=== PATIENT | female | born 1965 | race Caucasian/White ===

== ENCOUNTER 2017-11-26 14:03 | Emergency (ER) | payer OTHER ==
[2017-11-26 14:14] VITALS: BMI 29.8
[2017-11-26] MEDS ORDERED: THIAMINE HCL 200 MG/2 ML VIAL ONE (14:24)
[2017-11-26] MEDS ORDERED: MAGNESIUM 1GM/D5W - 1 GM/100 ML IVPB IVPB ONE ×2 (14:24→14:55)
[2017-11-26] MEDS ORDERED: MULTIVIT INJ. ADULT COMBO WITH VIT K 1 COMBO 10 ML VIAL IV ONE (14:25)
[2017-11-26] MEDS ORDERED: FOLIC ACID 5 MG/1 ML ONE (14:26)
[2017-11-26 14:36] LABS: EOS % 2.1 % (0-4.5); HEMATOCRIT 34.1 % (32.4-45.2); HEMOGLOBIN 11.4 GM/dl (10.7-15.3); LYMPH % 20.8 % (8-40); MCH 35.4 pg (25.7-33.7); MCHC 33.4 g/dl (32.0-36.0); MEAN CELL VOLUME 105.9 fl (80-96); MEAN PLT VOLUME 8.9 fl (7.5-11.1); MONO % 11.6 % (3.8-10.2); NEUT % 64.5 % (42.8-82.8); PLATELET COUNT 89 K/MM3 (134-434); RBC 3.22 M/mm3 (3.60-5.2); WHITE BLOOD COUNT 6.2 K/mm3 (4.0-10.8)
[2017-11-26] MEDS ORDERED: MAGNESIUM SULF 50% (8.12 MEQ/2 ML-1 GM VIAL) IVPB ONE ×3 (14:38→16:45)
--- NOTE | 2017-11-26 14:39 | PDOC ---
History of Present Illness - General History Source: Patient (The patient is a 52 year old female, well known to the emergency department, with a significant past medical history of alcohol abuse, who presents to the ED via EMS, s/p a syncopal episode. The patient reports she was walking to her girlfriends shop when she fainted. She denies dizziness, diaphoresis, chest pain, palpitations or shortness of breath before fainting. The patient reports a bystander called 911 and EMS transported the patient to the ED. EMS reports the patient may have had a seizure per bystander witness. The patient reports her last alcoholic drink was approx. 3 days ago. She denies any recent fever, chills, headache or dizziness. She denies any recent nausea, vomiting, constipation or diarrhea. She denies any recent chest pain or shortness of breath. ), EMS Exam Limitations: No Limitations <Cleveland Weaver - Last Filed: 11/26/17 17:40> <Lakshmi Cuevas - Last Filed: 11/27/17 09:39> - General Chief Complaint: Seizure Stated Complaint: I THINK I HAD A SEIZURE Time Seen by Provider: 11/26/17 14:16 Past History <Cleveland Weaver - Last Filed: 11/26/17 17:40> - Past Medical History Anemia: Yes Asthma: No Cancer: No Cardiac Disorders: No CVA: No COPD: No CHF: No Dementia: No Diabetes: No GI Disorders: Yes (ABD. PAIN, GERD, pancreatitis;ON PRILOSEC) Disorders: No HTN: Yes (NOT CURRENTLY ON MED) Hypercholesterolemia: Yes (NOT CURRENTLY ON MED--TAKEN OFF) Kidney Stones: No Liver Disease: No Psychiatric Problems: Yes (anxiety/depression) Seizures: No Thyroid Disease: Yes (HYPOTHYROIDISM- ON SYNTHROID 100 MCG) - Surgical History Abdominal Surgery: No Appendectomy: No Cardiac Surgery: No Cholecystectomy: No Lung Surgery: No Neurologic Surgery: No Orthopedic Surgery: No - Reproductive History PID: No - Suicide/Smoking/Psychosocial Hx Smoking Status: No Smoking History: Never smoked Have you smoked in the past 12 months: No Number of Cigarettes Smoked Daily: 0 Hx Alcohol Use: Yes Drug/Substance Use Hx: No Substance Use Type: Alcohol Hx Substance Use Treatment: No <Lakshmi Cuevas - Last Filed: 11/27/17 09:39> - Past Medical History Allergies/Adverse Reactions: Allergies Allergy/AdvReac Type Severity Reaction Status Date / Time No Known Allergies Allergy Verified 06/03/16 17:04 Home Medications: Ambulatory Orders Cyclobenzaprine HCl 5 mg PO DAILY tablet 09/13/15 Cyclobenzaprine HCl [Flexeril -] 10 mg PO TID 06/03/16 Hyoscyamine Sulfate [Oscimin] 0.125 mg PO Q6H 06/03/16 Lactobacillus Acidophilus [Probiotic] 1 each PO TID PRN 07/03/16 Cyanocobalamin [Vitamin B12 -] 100 mcg PO DAILY #30 tablet 09/07/16 Lactulose (Oral Use) [Cephulac -] 20 gm PO BID #10 udc 09/07/16 Magnesium Oxide [Mag-Ox -] 800 mg PO BID #20 tablet 09/07/16 Multivitamins [Multivit ([facility] Formulary)] 1 tab PO DAILY #30 tab 09/07/16 Thiamine HCl [Vitamin B1 -] 100 mg PO DAILY #30 tablet 09/07/16 Fluoxetine HCl 20 mg PO DAILY capsule 04/03/17 Review of Systems - Review of Systems Constitutional: No: Chills, Diaphoresis, Fever, Weakness HEENTM: No: Eye Pain, Blurred Vision, Double Vision, Ear Pain, Difficulty Swallowing Respiratory: No: Cough, Shortness of Breath, Wheezing Cardiac (ROS): Yes: Syncope. No: Chest Pain, Edema, Lightheadedness, Palpitations, Chest Tightness ABD/GI: No: Abdominal Distended, Constipated, Diarrhea, Nausea, Vomiting : No: Burning, Dysuria, Discharge, Frequency, Hematuria Musculoskeletal: No: Back Pain, Joint Pain Integumentary: No: Erythema, Lesions, Rash Neurological: Yes: Tremors. No: Headache, Numbness, Paresthesia Endocrine: No: Intolerance to Cold, Intolerance to Heat, Unexplained Weight Gain , Unexplained Weight Loss Hematologic/Lymphatic: No: Easy Bleeding, Easy Bruising <Cleveland Weaver - Last Filed: 11/26/17 17:40> *Physical Exam - Vital Signs Last Vital Signs Temp Pulse Resp BP Pulse Ox 0/0 11/26/17 14:04 - Physical Exam General Appearance: Yes: Appropriately Dressed, Alcohol on Breath, Other ( Combative ). No: Apparent Distress HEENT: positive: EOMI, VERA, Normal ENT Inspection, Normal Voice, Symmetrical, TMs Normal, Pharynx Normal Neck: positive: Trachea midline, Supple. negative: Tender Respiratory/Chest: positive: Lungs Clear, Normal Breath Sounds. negative: Chest Tender, Respiratory Distress, Accessory Muscle Use Cardiovascular: positive: Regular Rhythm, Regular Rate, S1, S2. negative: Edema , JVD, Murmur Gastrointestinal/Abdominal: positive: Normal Bowel Sounds. negative: Distended , Guarding, Rebound, Tenderness Musculoskeletal: positive: Normal Inspection. negative: CVA Tenderness, Decreased Range of Motion Extremity: positive: Normal Inspection, Normal Range of Motion. 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, Fully Oriented, Alert, Normal Mood/ Affect, Normal Response, Motor Strength 5/5 <Cleveland Weaver - Last Filed: 11/26/17 17:40> - Vital Signs Last Vital Signs Temp Pulse Resp BP Pulse Ox 0/0 11/26/17 14:04 - Physical Exam Neurologic: positive: Fully Oriented (Not fully cooperating for the asssement), Normal Mood/Affect (Episodes of anger and agitation) <Lakshmi Cuevas - Last Filed: 11/27/17 09:39> ED Treatment Course - LABORATORY CBC & Chemistry Diagram: 11/26/17 14:20 11/26/17 14:20 - ADDITIONAL ORDERS Additional order review: Laboratory Results 11/26/17 11/26/17 14:20 14:20 Sodium 131 L Potassium 3.6 Chloride 99 Carbon Dioxide 17 L D Anion Gap 15 BUN 7 D Creatinine < 0.8 D Creat Clearance w eGFR > 60 Random Glucose 85 Calcium 6.6 L* D Magnesium 0.8 L* Total Bilirubin 2.9 H D AST 171 H D ALT 28 Alkaline Phosphatase 126 H D Total Protein 6.7 Albumin 3.3 L Alcohol, Quantitative 344.4 H* 11/26/17 14:20 RBC 3.22 L MCV 105.9 H MCHC 33.4 RDW 15.0 MPV 8.9 Neutrophils % 64.5 Lymphocytes % 20.8 Monocytes % 11.6 H Eosinophils % 2.1 Basophils % 1.0 - RADIOLOGY Radiograph Interpretation: 11/26/17 16:15 EXAM#: TYPE/EXAM: RESULT: [id number] CT/HEAD CT WITHOUT CONTRAST History of seizure CT scan of the brain without intravenous contrast. Compared to prior CT scan of the head dated 09/03/2016 There remains [id number] volume loss and ventricular dilatation. No mass lesion, gross acute infarct or intracranial hemorrhage are identified. There is no shift of the midline structures The calvarium is intact. Visualized paranasal sinuses and mastoid air cells are well aerated. The calvarium is intact IMPRESSION: No significant interval change or acute intracranial pathology is identified Reported By: Pietro Mueller MD - Medications Given in the ED: ED Medications Discontinued Medications Generic Name Dose Route Start Last Admin Trade Name Freq PRN Reason Stop Dose Admin Folic Acid 1 mg 11/26/17 14:52 11/26/17 15:00 Folic Acid Injection - IVPB 11/26/17 14:53 1 mg ONCE ONE Administration Magnesium Sulfate 1 gm 11/26/17 14:38 11/26/17 14:49 Magnesium Sulfate IVPB 11/26/17 14:39 1 gm ONCE ONE Administration Magnesium Sulfate 1 gm 11/26/17 14:58 11/26/17 15:00 Magnesium Sulfate IVPB 11/26/17 14:59 1 gm ONCE ONE Administration Thiamine HCl 200 mg 11/26/17 14:52 11/26/17 15:01 Vitamin B1 Injection - IVPB 11/26/17 14:53 200 mg ONCE ONE Administration <Cleveland Weaver - Last Filed: 11/26/17 17:40> - LABORATORY CBC & Chemistry Diagram: 11/26/17 14:20 11/26/17 14:20 <Lakshmi Cuevas S - Last Filed: 11/27/17 09:39> Medical Decision Making - Medical Decision Making 11/26/17 17:15 Patient observed hour by hour. Patient expressed intent to leave. Patient given Ativan and banana bag via IV. <Cleveland Weaver - Last Filed: 11/26/17 17:40> - Medical Decision Making 11/26/17 19:03 Patient stable , iv fluids running endorsed to Dr Lacy at shift change <Lakshmi Cuevas S - Last Filed: 11/27/17 09:39> *DC/Admit/Observation/Transfer - Attestations Scribe Attestion: 11/26/17 15:22 Documentation prepared by Cleveland Weaver, acting as phlebotomist medical lab assistant for Lakshmi Cuevas MD. <Cleveland Weaver - Last Filed: 11/26/17 17:40> - Discharge Dispostion Admit: No <Lakshmi Cuevas - Last Filed: 11/27/17 09:39> Diagnosis at time of Disposition: AMA - Signed out against medical advice, Hypomagnesemia, Alcohol dependence with uncomplicated withdrawal
[2017-11-26 14:51] LABS: ALBUMIN 3.3 g/dl (3.5-5.0); ALK PHOS 126 U/L (32-92); ANION GAP 15 (8-16); BILIRUBIN,TOTAL 2.9 mg/dl (0.2-1.0); BLOOD UREA NITROGEN 7 mg/dl (7-18); CHLORIDE 99 mmol/L (98-107); CO2 17 mmol/L (22-28); GLUCOSE,RANDOM 85 mg/dl (74-106); POTASSIUM 3.6 mmol/L (3.5-5.1); SGOT/AST 171 U/L (10-42); SGPT/ALT 28 U/L (10-40); SODIUM 131 mmol/L (136-145); TOT PROT 6.7 g/dl (6.4-8.3)
[2017-11-26] MEDS ORDERED: THIAMINE HCL 200 MG/2 ML VIAL IVPB ONE (14:52)
[2017-11-26] MEDS ORDERED: FOLIC ACID 5 MG/1 ML IVPB ONE (14:52)
[2017-11-26] MEDS ORDERED: SODIUM CHLORIDE 1,000 ML IV STA ×2 (14:53→18:55)
[2017-11-26 14:54] LABS: CALCIUM 6.6 mg/dl (8.4-10.2)
[2017-11-26 14:55] LABS: MAGNESIUM 0.8 mg/dL (1.8-2.4)
[2017-11-26 14:59] LABS: CREATININE < 0.8 mg/dl (0.6-1.3)
[2017-11-26] MEDS ORDERED: MULTIVIT INJ. ADULT COMBO WITH VIT K 1 COMBO 10 ML VIAL IV SCH (15:00)
[2017-11-26 15:44] VITALS: TEMP 98.6
[2017-11-26] MEDS ORDERED: LORazepam 2 MG/ML SDV VIAL ONE (15:49)
[2017-11-26 19:31] VITALS: BP 116/71; PULSE 98
--- NOTE | 2017-11-27 06:20 | PDOC ---
*Physical Exam - Vital Signs Last Vital Signs Temp Pulse Resp BP Pulse Ox 98.6 F 98 H 14 116/71 96 11/26/17 14:04 11/26/17 19:29 11/26/17 19:29 11/26/17 19:29 11/26/17 17:25 ED Treatment Course - LABORATORY CBC & Chemistry Diagram: 11/26/17 14:20 11/26/17 14:20 - ADDITIONAL ORDERS Additional order review: 11/26/17 14:20 RBC 3.22 L MCV 105.9 H MCHC 33.4 RDW 15.0 MPV 8.9 Neutrophils % 64.5 Lymphocytes % 20.8 Monocytes % 11.6 H Eosinophils % 2.1 Basophils % 1.0 - Medications Given in the ED: ED Medications Discontinued Medications Generic Name Dose Route Start Last Admin Trade Name Freq PRN Reason Stop Dose Admin Folic Acid 1 mg 11/26/17 14:52 11/26/17 15:00 Folic Acid Injection - IVPB 11/26/17 14:53 1 mg ONCE ONE Administration Sodium Chloride 1,000 mls @ 1,000 mls/hr 11/26/17 14:53 11/26/17 15:00 Normal Saline - IV 11/26/17 15:52 1,000 mls/hr ASDIR STA Administration Sodium Chloride 1,000 mls @ 1,000 mls/hr 11/26/17 18:55 11/26/17 18:15 Normal Saline - IV 11/26/17 19:54 1,000 mls/hr ASDIR STA Administration Lorazepam 2 mg 11/26/17 15:34 11/26/17 15:54 Ativan Injection - IVPUSH 11/26/17 15:35 2 mg ONCE ONE Administration Magnesium Sulfate 1 gm 11/26/17 14:38 11/26/17 14:49 Magnesium Sulfate IVPB 11/26/17 14:39 1 gm ONCE ONE Administration Magnesium Sulfate 1 gm 11/26/17 14:58 11/26/17 15:00 Magnesium Sulfate IVPB 11/26/17 14:59 1 gm ONCE ONE Administration Magnesium Sulfate 2 gm 11/26/17 16:45 11/26/17 16:58 Magnesium Sulfate IVPB 11/26/17 16:46 2 gm ONCE ONE Administration Multivitamins/Minerals 10 ml 11/26/17 15:00 11/26/17 15:01 Infuvite Adult - IV 10 ml DAILY ANDREW Administration Thiamine HCl 200 mg 11/26/17 14:52 11/26/17 15:01 Vitamin B1 Injection - IVPB 11/26/17 14:53 200 mg ONCE ONE Administration Progress Note - Progress Note Progress Note: Care of this patient received from . Patient was brought to the ED via EMS with a syncopal episode/possible seizure. The patient has a long history of alcoholism and stated that her last drink was 2 days prior to presentation[however blood alcohol level is 344 MG/deciliter ]. Workup revealed marked hypomagnesemia and the patient received supplementation of 4 g magnesium sulfate and lorazepam IV for sedation. Patient was observed for more than 7 hours with plan to admit for further evaluation and treatment of possible syncopal episode. Patient was awake, alert and oriented ; she was able to ambulate without significant ataxia. She expressed her desire to leave AGAINST MEDICAL ADVICE. She was strongly advised against this but insisted on signing AMA form. The patient called a friend for transportation home *DC/Admit/Observation/Transfer Diagnosis at time of Disposition: AMA - Signed out against medical advice - Referrals - Patient Instructions - Post Discharge Activity
--- NOTE | 2017-11-27 14:58 | EKG ---
Test Reason : Blood Pressure : / mmHG Vent. Rate : 091 BPM Atrial Rate : 091 BPM P-R Int : 138 ms QRS Dur : 084 ms QT Int : 408 ms P-R-T Axes : 076 029 041 degrees QTc Int : 501 ms NORMAL SINUS RHYTHM POSSIBLE LEFT ATRIAL ENLARGEMENT PROLONGED QT ABNORMAL ECG WHEN COMPARED WITH ECG OF 04-JUN-2016 14:06, NO SIGNIFICANT CHANGE WAS FOUND Confirmed by CHRIS PRETTY MD ([id number]) on 11/27/2017 2:58:26 PM Referred By: ELVIA BRIGGS Confirmed By:CHRIS PRETTY MD
== END 2017-11-26 21:32 | disposition left against medical advice (07) ==
LOC: FER 14:03
PROC: 3E033GC Introduction of Other Therapeutic Substance into Peripheral Vein, Percutaneous Approach (ICD-10-PCS; principal; 2017-11-26)
DX: F10.230 Alcohol dependence with withdrawal, uncomplicated (principal); E83.42 Hypomagnesemia; D64.9 Anemia, unspecified; K21.9 Gastro-esophageal reflux disease without esophagitis; I10 Essential (primary) hypertension; E78.00 Pure hypercholesterolemia, unspecified; E03.9 Hypothyroidism, unspecified; F41.9 Anxiety disorder, unspecified; F32.9 Major depressive disorder, single episode, unspecified
CPT/HCPCS: 36415; 70450-TC; 80053; 80307; 83735; 84484; 85025; 93005; 96361; 96374; 96375; 96376; 99284-25

== ENCOUNTER 2018-01-08 16:20 | Emergency (ER) | payer OTHER ==
[2018-01-08 16:41] VITALS: BP 116/74; PULSE 82; TEMP 98.2; BMI 29.5
[2018-01-08] MEDS ORDERED: DIPHTH,PERTUSS(ACELL),TET 0.5 ML DISP.SYRIN IM ONE (16:56)
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
== END 2018-01-08 18:31 | disposition home or self-care (01) ==
LOC: FER 16:20
PROC: 3E0234Z Introduction of Serum, Toxoid and Vaccine into Muscle, Percutaneous Approach (ICD-10-PCS; principal; 2018-01-08)
DX: S09.90XA Unspecified injury of head, initial encounter (principal); T76.11XA Adult physical abuse, suspected, initial encounter; Y93.89 Activity, other specified; Y92.524 Gas station as the place of occurrence of the external cause; E03.9 Hypothyroidism, unspecified; K21.9 Gastro-esophageal reflux disease without esophagitis; I10 Essential (primary) hypertension; E78.00 Pure hypercholesterolemia, unspecified; F32.9 Major depressive disorder, single episode, unspecified; F10.20 Alcohol dependence, uncomplicated
CPT/HCPCS: 70450-TC; 70486-TC; 71046-TC-FY; 72125-TC; 72170-TC-FY; 73130-TC-RT-FY; 90715; 99284-25

== ENCOUNTER 2018-02-09 18:43 | Emergency (ER) | payer OTHER ==
[2018-02-09 19:11] VITALS: BP 122/61; PULSE 100; TEMP 98.2; BMI 25.7
--- NOTE | 2018-02-09 19:18 | PDOC ---
History of Present Illness - General History Source: Patient Exam Limitations: No Limitations - History of Present Illness Initial Comments: 02/09/18 19:49 The patient is a 52 year old female with a significant past medical history of anemia, abdominal pain, GERD, pancreatitis (on prilosec), HTN, HLD, anxiety, depression, hypothyroidism (synthroid 100 MCG), and chronic alcohol abuse who presents to the emergency department for evaluation of 3 day history of abdominal pain and distension. The patient reports intermittent episodes of diffuse abdominal pain occurring since three days ago. She describes her pain as deep and sharp in nature and states her "belly really hurts". She reports associated symptom of generalized weakness. She reports her stomach has been distended for the last 3 days. She denies taking medication for the symptoms. She reports her last bowel movement was this morning. The patient admits drinking 2 margaritas today. She denies any lack of appetite, and states she is currently hungry. She denies any changes in urination, but notes her urine is darker than normal. She reports she has not been compliant with her protonic medication. The patient denies chest pain, shortness of breath, headache, and dizziness. Denies fevers, chills, nausea, vomiting, diarrhea, and constipation. Allergies: NKA Social history: Social alcohol consumption (on weekends). No reported cigarette or drug use. PCP: Dr. Hutchison <Karolina Barragan - Last Filed: 02/09/18 20:49> <Ana Lacy - Last Filed: 02/10/18 01:21> - General Chief Complaint: Pain Stated Complaint: ABDOMINAL PAIN FEELS BLOATED Time Seen by Provider: 02/09/18 19:17 Past History <Karolina Barragan - Last Filed: 02/09/18 20:49> - Past Medical History Anemia: Yes Asthma: No Cancer: No Cardiac Disorders: No CVA: No COPD: No CHF: No Dementia: No Diabetes: No GI Disorders: Yes (ABD. PAIN, GERD, pancreatitis;ON PRILOSEC) Disorders: No HTN: Yes (NOT CURRENTLY ON MED) Hypercholesterolemia: Yes (NOT CURRENTLY ON MED--TAKEN OFF) Kidney Stones: No Liver Disease: No Psychiatric Problems: Yes (anxiety/depression) Seizures: No Thyroid Disease: Yes (HYPOTHYROIDISM- ON SYNTHROID 100 MCG) - Surgical History Abdominal Surgery: No Appendectomy: No Cardiac Surgery: No Cholecystectomy: No Lung Surgery: No Neurologic Surgery: No Orthopedic Surgery: No - Reproductive History PID: No - Suicide/Smoking/Psychosocial Hx Smoking Status: No Smoking History: Never smoked Have you smoked in the past 12 months: No Number of Cigarettes Smoked Daily: 0 Information on smoking cessation initiated: No Hx Alcohol Use: Yes (STATES SOCIAL) Drug/Substance Use Hx: No Substance Use Type: Alcohol Hx Substance Use Treatment: No <Ana Lacy - Last Filed: 02/10/18 01:21> - Past Medical History Allergies/Adverse Reactions: Allergies Allergy/AdvReac Type Severity Reaction Status Date / Time No Known Allergies Allergy Verified 02/09/18 18:45 Home Medications: Ambulatory Orders Fluoxetine HCl 20 mg PO DAILY capsule 04/03/17 Levothyroxine [Synthroid -] 100 mcg PO DAILY 01/08/18 Pantoprazole Sodium [Protonix] 40 mg PO DAILY 01/08/18 Pantoprazole Sodium [Protonix -] 40 mg PO DAILY #30 tablet.ec 02/09/18 Abd/GI Specific PMHX - Complaint Specific PMHX Hepatitis: No Pancreatitis: No <Ana Lacy - Last Filed: 02/10/18 01:21> Review of Systems - Review of Systems Able to Perform ROS?: Yes Comments:: All systems are reviewed and negative except as noted in the HPI. <Karolina Barragan - Last Filed: 02/09/18 20:49> *Physical Exam - Vital Signs Last Vital Signs Temp Pulse Resp BP Pulse Ox 98.2 F 100 H 18 122/61 96 02/09/18 18:45 02/09/18 18:45 02/09/18 18:45 02/09/18 18:45 02/09/18 18:45 - Physical Exam Comments: GENERAL: The patient is awake, alert, and fully oriented, in no acute distress. HEAD: Normal with no signs of trauma. EYES: Pupils equal, round and reactive to light, extraocular movements intact, sclera anicteric, conjunctiva clear. ENT: (+)Dry mucous membranes. Ears normal, nares patent, oropharynx clear without exudates. NECK: Normal range of motion, supple without lymphadenopathy, JVD, or masses. LUNGS: Breath sounds equal, clear to auscultation bilaterally. No wheezes, and no crackles. HEART: Regular rate and rhythm, normal S1 and S2 without murmur, rub or gallop. ABDOMEN: (+)Moderately distended. Soft, nontender, normoactive bowel sounds. No guarding, no rebound. No masses. EXTREMITIES: Normal range of motion, no edema. No clubbing or cyanosis. No cords , erythema, or tenderness. NEUROLOGICAL: Cranial nerves II through XII grossly intact. Normal speech, normal gait. PSYCH: Normal mood, normal affect. SKIN: Warm, Dry, normal turgor, no rashes or lesions noted. <Karolina Barragan - Last Filed: 02/09/18 20:49> - Vital Signs Last Vital Signs Temp Pulse Resp BP Pulse Ox 98.2 F 100 H 18 122/61 96 02/09/18 18:45 02/09/18 18:45 02/09/18 18:45 02/09/18 18:45 02/09/18 18:45 <Ana Lacy - Last Filed: 02/10/18 01:21> Progress Note - Progress Note Progress Note: Documentation has been prepared under my direction and personally reviewed by me in its entirety. I attest that this documented accurately reflects all work, treatment, procedures and medical decision making performed by me. <Ana Lacy - Last Filed: 02/10/18 01:21> Medical Decision Making - Medical Decision Making As noted above, this 52-year-old woman with a history of GERD/hypothyroidism/ chronic alcohol abuse presents with epigastric to periumbilical pain and abdominal distention. She has had no vomiting/diarrhea/constipation/fever or chills. She has been able to eat today (chicken/broccoli) without nausea or vomiting. She states she is currently hungry. She admits to drinking 2 margaritas today. Although patient initially stated that she was taking her medications as prescribed, later in the interview, patient admitted to having run out of her Protonix. Exam as noted. The patient has absolutely no tenderness to palpation; organomegaly/masses palpable. She does have some soft distention of her abdomen but bowel sounds are normal. Because of patient's benign abdominal exam and lack of vomiting/fever, acute abdominal process very unlikely. Since patient drinks daily and is currently not taking her proton pump inhibitor, she likely has recurrence of gastritis/ GERD. Patient has been given Protonix 40 mg by mouth and new prescription of Protonix sent to her pharmacy. Patient's psychologists is . She should follow up with him within the next few days. If she has worsening of pain or develops vomiting/ fever, she should return to the emergency room <Ana Lacy - Last Filed: 02/10/18 01:21> *DC/Admit/Observation/Transfer - Attestations Scribe Attestion: Documentation prepared by Karolina Barragan, acting as medical collections representative for Ana Lacy MD. <Karolina Barragan - Last Filed: 02/09/18 20:49> <Ana Lacy - Last Filed: 02/10/18 01:21> Diagnosis at time of Disposition: GERD (gastroesophageal reflux disease) Qualifiers: Esophagitis presence: without esophagitis Qualified Code(s): K21.9 - Gastro- esophageal reflux disease without esophagitis - Discharge Dispostion Disposition: HOME Condition at time of disposition: Stable - Prescriptions Prescriptions: Pantoprazole Sodium [Protonix -] 40 mg PO DAILY #30 tablet.ec - Referrals Referrals: Lois Crocker MD [Staff Physician] - Call tomorrow - Patient Instructions Printed Discharge Instructions: DI for Gastroesophageal Reflux Disease (GERD) Additional Instructions: light diet; limit alcohol intake Continue Protonix 40 mg daily Take other medications as previously prescribed Call 's office tomorrow to arrange follow-up within the next 2-3 days Consider probiotic such as"Align" and take as directed Return if symptoms worsen or you have vomiting/fever
[2018-02-09] MEDS ORDERED: FAMOTIDINE 20 MG TABLET PO ONE (19:48)
[2018-02-09] MEDS ORDERED: FAMOTIDINE 20 MG TABLET ONE (20:02)
[2018-02-09 20:07] LABS: URINE APPEARANCE Clear; URINE BILIRUBIN Negative (NEGATIVE); URINE COLOR YELLOW; URINE GLUCOSE (UA) Negative (NEGATIVE); URINE KETONE Negative (NEGATIVE); URINE LEUK ESTERASE Negative (NEGATIVE); URINE NITRITE Negative (NEGATIVE); URINE PROTEIN Negative (NEGATIVE)
[2018-02-09 20:12] LABS: EPI CELLS FEW /HPF; URINE WBC 0-2 (0-5)
[2018-02-09 20:13] LABS: URINE BACTERIA NONE SEEN /hpf (NEGATIVE)
[2018-02-09] MEDS ORDERED: PANTOPRAZOLE 40 MG TABLET (FP) PO ONE (20:31)
[2018-02-09] MEDS ORDERED: PANTOPRAZOLE 40 MG TABLET (FP) ONE (20:33)
== END 2018-02-09 20:51 | disposition home or self-care (01) ==
LOC: FER 18:43
DX: K21.9 Gastro-esophageal reflux disease without esophagitis (principal); I10 Essential (primary) hypertension; E78.5 Hyperlipidemia, unspecified; E03.9 Hypothyroidism, unspecified; F41.9 Anxiety disorder, unspecified; F32.9 Major depressive disorder, single episode, unspecified; D64.9 Anemia, unspecified; K86.1 Other chronic pancreatitis; F10.20 Alcohol dependence, uncomplicated
CPT/HCPCS: 81003; 81015; 99282-25

== ENCOUNTER 2018-02-11 13:38 | Inpatient (IN) | payer OTHER ==
--- NOTE | 2018-02-11 14:06 | PDOC ---
History of Present Illness - General Chief Complaint: Rectal Bleed Stated Complaint: RECTAL/VAGINAL BLEEDING Time Seen by Provider: 02/11/18 14:05 - History of Present Illness Initial Comments: 02/11/18 14:21 Ms. Gonzalez is a 52 yo female w/ pmh of anemia, GERD, pancreatitis, HTN, HLD, anxiety, depresssion, hypothyroidism (on synthroid), chronic alcohol abuse who presents for evaluation of 3 days of abdominal pain and abdominal swelling. She reports she has generalized abdominal pain she rates 10/10. She was evaluated 2 days ago for similar complaint and thought to have GERD exacerbation. She presents today as abdominal pain and girth have increased and she has reportedly had rectal and urinary bleeding. The patient denies chest pain, shortness of breath, headache and dizziness. Denies fever, chills, nausea, vomit, diarrhea and constipation. Denies dysuria, frequency, urgency and hematuria. Allergies: NKDA Past History - Past Medical History Allergies/Adverse Reactions: Allergies Allergy/AdvReac Type Severity Reaction Status Date / Time No Known Allergies Allergy Verified 02/09/18 18:45 Home Medications: Ambulatory Orders Fluoxetine HCl 20 mg PO DAILY capsule 04/03/17 Levothyroxine [Synthroid -] 100 mcg PO DAILY 01/08/18 Pantoprazole Sodium [Protonix -] 40 mg PO DAILY #30 tablet.ec 02/09/18 Anemia: Yes Asthma: No Cancer: No Cardiac Disorders: No CVA: No COPD: No CHF: No Dementia: No Diabetes: No GI Disorders: Yes (ABD. PAIN, GERD, pancreatitis;ON PRILOSEC) Disorders: No HTN: Yes (NOT CURRENTLY ON MED) Hypercholesterolemia: Yes (NOT CURRENTLY ON MED--TAKEN OFF) Kidney Stones: No Liver Disease: No Psychiatric Problems: Yes (anxiety/depression) Seizures: No Thyroid Disease: Yes (HYPOTHYROIDISM- ON SYNTHROID 100 MCG) - Surgical History Abdominal Surgery: No Appendectomy: No Cardiac Surgery: No Cholecystectomy: No Lung Surgery: No Neurologic Surgery: No Orthopedic Surgery: No - Reproductive History PID: No - Suicide/Smoking/Psychosocial Hx Smoking Status: No Smoking History: Never smoked Have you smoked in the past 12 months: No Number of Cigarettes Smoked Daily: 0 Hx Alcohol Use: Yes (STATES SOCIAL) Drug/Substance Use Hx: No Substance Use Type: Alcohol Hx Substance Use Treatment: No Review of Systems - Review of Systems Comments:: 02/11/18 18:57 GENERAL/CONSTITUTIONAL: No fever or chills. No weakness. HEAD, EYES, EARS, NOSE AND THROAT: No change in vision. No ear pain or discharge. No sore throat. CARDIOVASCULAR: No chest pain or shortness of breath RESPIRATORY: No cough, wheezing, or hemoptysis. GASTROINTESTINAL: +Abdominal pain / swelling as described. No nausea, vomiting, diarrhea or constipation. GENITOURINARY: No dysuria, frequency, or change in urination. MUSCULOSKELETAL: No joint or muscle swelling or pain. No neck or back pain. SKIN: No rash NEUROLOGIC: No headache, vertigo, loss of consciousness, or change in strength/ sensation. ENDOCRINE: No increased thirst. No abnormal weight change HEMATOLOGIC/LYMPHATIC: No anemia, easy bleeding, or history of blood clots. ALLERGIC/IMMUNOLOGIC: No hives or skin allergy. *Physical Exam - Vital Signs Last Vital Signs Temp Pulse Resp BP Pulse Ox 114 H 22 130/80 95 02/11/18 13:56 02/11/18 13:56 02/11/18 13:56 02/11/18 13:56 - Physical Exam Comments: 02/11/18 18:57 GENERAL: Awake, alert, and fully oriented, in no acute distress HEAD: No signs of trauma, normocephalic, atraumatic EYES: PERRLA, EOMI, sclera anicteric, conjunctiva clear ENT: Auricles normal inspection, hearing grossly normal, nares patent, oropharynx clear without exudates. Moist mucosa NECK: Normal ROM, supple, no lymphadenopathy, JVD, or masses LUNGS: No distress, speaks full sentences, clear to auscultation bilaterally HEART: Regular rate and rhythm, normal S1 and S2, no murmurs, rubs or gallops, peripheral pulses normal and equal bilaterally. ABDOMEN: +Distended abdomen. Soft, nontender, normoactive bowel sounds. No guarding, no rebound. No masses EXTREMITIES: Normal inspection, Normal range of motion, no edema. No clubbing or cyanosis. NEUROLOGICAL: Cranial nerves II through XII grossly intact. Normal speech, normal gait, no focal sensorimotor deficits SKIN: Warm, Dry, normal turgor, no rashes or lesions noted. ED Treatment Course - LABORATORY CBC & Chemistry Diagram: 02/11/18 14:18 02/11/18 14:18 Medical Decision Making - Medical Decision Making 02/11/18 18:57 Ms. Gonzalez is a 52 yo female w/ pmh as described who presents for evaluation of abdominal pain / distended abdomen concerning for new onset cirrhosis / ascites. Patient noted to have elevated lactate to 5.9. CT concerning for findings suggestive of liver cirrhosis with large amount of free fluid / ascites noted in abdomen. Admitting patient for further evaluation. 02/11/18 19:21 Patient signed out to Dr. Ray for further evaluation. *DC/Admit/Observation/Transfer Diagnosis at time of Disposition: Cirrhosis Qualifiers: Hepatic cirrhosis type: unspecified hepatic cirrhosis Ascites presence: unspecified Qualified Code(s): K74.60 - Unspecified cirrhosis of liver Ascites Qualifiers: Ascites type: due to alcoholic cirrhosis Qualified Code(s): K70.31 - Alcoholic cirrhosis of liver with ascites - Referrals Referrals: Matti Hutchison MD [Primary Care Provider] - - Patient Instructions - Post Discharge Activity
[2018-02-11] MEDS ORDERED: morphine CARPU-JECT 4 MG/1 ML DISP.SYRIN IVPUSH ONE ×2 (14:25→19:44)
[2018-02-11] MEDS ORDERED: morphine SULFATE 4 MG/ML VIAL ONE ×2 (14:28→20:48)
[2018-02-11 14:33] LABS: HEMATOCRIT 29.6 % (32.4-45.2); HEMOGLOBIN 10.3 GM/dL (10.7-15.3); LYMPH % 21.4 % (8-40); MCH 37.6 pg (25.7-33.7); MCHC 34.8 g/dl (32.0-36.0); MEAN PLT VOLUME 9.4 fl (7.5-11.1); MONO % 6.9 % (3.8-10.2); NEUT % 69.7 % (42.8-82.8); PLATELET COUNT 107 K/MM3 (134-434); RBC 2.74 M/mm3 (3.60-5.2); WHITE BLOOD COUNT 4.7 K/mm3 (4.0-10.0)
[2018-02-11] MEDS ORDERED: MORPHINE SULFATE 10 MG/1 ML *VIAL ONE (14:56)
[2018-02-11 14:58] LABS: INR 1.44 (0.82-1.09); PROTHROMBIN TIME (PATIENT) 16.3 SEC (9.7-13.0)
[2018-02-11 15:57] LABS: ANION GAP 15 (8-16); BILIRUBIN,TOTAL 4.1 mg/dL (0.2-1.0); BLOOD UREA NITROGEN 4 mg/dL (7-18); CALCIUM 7.1 mg/dL (8.5-10.1); CHLORIDE 101 mmol/L (98-107); CO2 25 mmol/L (21-32); CREATININE 0.7 mg/dL (0.55-1.02); GLUCOSE,RANDOM 98 mg/dL (74-106); POTASSIUM 3.4 mmol/L (3.5-5.1); SGOT/AST 112 U/L (15-37); SGPT/ALT 19 U/L (12-78); SODIUM 141 mmol/L (136-145)
[2018-02-11 15:59] LABS: ALK PHOS 126 U/L (45-117); TOT PROT 7.1 g/dl (6.4-8.2)
[2018-02-11] MEDS ORDERED: CEFTRIAXONE 1 GM in DEXTROSE 5%-WATER - 100 ML IVPB ONE (16:41)
[2018-02-11] MEDS ORDERED: CEFTRIAXONE 1 GM/50 ML BAG ONE (17:48)
[2018-02-11] MEDS ORDERED: SODIUM CHLORIDE 1,000 ML IV STA (18:34)
--- NOTE | 2018-02-11 18:37 | PDOC ---
Attending Attestation - HPI HPI: 02/11/18 18:38 The patient is a 52 year old male with history of hypertension, hyperlipidemia, GERD, pancreatitis, who returns to the ED complaining of a 5 day history of diffuse progressive abdominal pain and abdominal distention. She was evaluated at [facility] ED and was discharged on Protonix with GI follow up. She returns to the ED for persistence of her symptoms. She now also complains of rectal bleeding and vaginal bleeding. No fever or chills. No nausea, vomiting, or diarrhea. She reports that she drinks 2 drinks every few days. Denies drug use. Denies falls. Per EMS, pt well known to them, appears to be more confused with more distended abdomen. Denies CP/SOB. - Physicial Exam PE: 02/11/18 18:38 GENERAL: Awake, alert, and fully oriented, in no acute distress HEAD: No signs of trauma EYES: PERRLA, EOMI, +scleral icterus, conjunctiva clear ENT: Auricles normal inspection, hearing grossly normal, nares patent, oropharynx clear without exudates. Moist mucosa NECK: Normal ROM, supple, no lymphadenopathy, JVD, or masses LUNGS: Breath sounds equal, clear to auscultation bilaterally. No wheezes, and no crackles HEART: Regular rate and rhythm, normal S1 and S2, no murmurs, rubs or gallops ABDOMEN: Soft, diffuse mild ttp, normoactive bowel sounds. No dullness to percussion. Has ecchymosis to LLQ. EXTREMITIES: Normal range of motion, no edema. No clubbing or cyanosis. No cords, erythema, or tenderness NEUROLOGICAL: Normal speech, cranial nerves intact, negative pronator drift, 5/ 5 strength in all 4 extremities, normal sensation to light touch in all 4 extremities, normal cerebellar exam, normal gait, normal reflexes and tone SKIN: Warm, Dry, normal turgor, no rashes or lesions noted. - Medical Decision Making 02/11/18 18:38 Documentation prepared by Ling Young, acting as medical health researcher for Demetrius Carrillo MD. <Ling Young - Last Filed: 02/11/18 18:38> - Resident Resident Name: Anson Bailey - ED Attending Attestation I have performed the following: I have examined & evaluated the patient, The case was reviewed & discussed with the resident, I agree w/resident's findings & plan, Exceptions are as noted - Critical Care Time Total Critical Care Time: 30 Critical Care Statement: The care of this patient involved high complexity decision making to prevent further life threatening deterioration of the patient 's condition and/or to evaluate & treat vital organ system(s) failure or risk of failure. - Medical Decision Making 02/11/18 18:45 52yo F hx etoh abuse p/w distended abd and diffuse abd ttp. Vitals initially with tachycardia, resolved to HR 80s with 1L NS. Concern for SBP. Lactate 5.9, likely 2/2 inability to clear by liver and possible SBP infection. Less likely sepsis as no SIRS criteria at this time. Pt given ceftriaxone for sbp cvg. Unable to do diag tap 2/2 non functioning ED ultrasound machine. CTAP with large amount ascitis, possible colitis, no other significant findings. Rpt lactate pending. Pt is HDS. Will admit to hospitalist at this time, awaiting call back. 02/11/18 19:[address] Loyd, accepted to med/surg bed. Given elevated lactate, I ordered surgical c/s to Dr. Garcia in case of mesenteric ischemia, although sxs and lactic acidosis much more likely 2/2 sbp and inability to clear lactic due to liver failure. Dr. Loyd will f/u on surgical c/s. Pt is HDS at this time, rpt lactate post 1L IVF pending. Case discussed in detail with admitting physician including history, physical exam and ancillary studies. Admitting physician has assumed care for the patient, will follow all pending diagnostics and will complete the evaluation and treatment. <Demetrius Carrillo - Last Filed: 02/13/18 19:46>
--- NOTE | 2018-02-11 19:46 | PDOC ---
*Physical Exam - Vital Signs Last Vital Signs Temp Pulse Resp BP Pulse Ox 98.3 F 96 H 19 140/89 95 02/11/18 19:25 02/11/18 19:25 02/11/18 19:25 02/11/18 19:25 02/11/18 13:56 ED Treatment Course - LABORATORY CBC & Chemistry Diagram: 02/11/18 14:18 02/11/18 14:18 - ADDITIONAL ORDERS Additional order review: Laboratory Results 02/11/18 02/11/18 02/11/18 16:12 16:03 14:18 PT with INR INR PTT (Actin FS) Sodium Potassium Chloride Carbon Dioxide Anion Gap BUN Creatinine Creat Clearance w eGFR Random Glucose Lactic Acid 5.9 H* Calcium Total Bilirubin AST ALT Alkaline Phosphatase Total Protein Albumin Lipase 222 Stool Occult Blood Negative 02/11/18 02/11/18 14:18 14:18 PT with INR 16.30 H INR 1.44 H D PTT (Actin FS) 32.0 Sodium 141 Potassium 3.4 L Chloride 101 Carbon Dioxide 25 Anion Gap 15 BUN 4 L Creatinine 0.7 Creat Clearance w eGFR > 60 Random Glucose 98 Lactic Acid Calcium 7.1 L Total Bilirubin 4.1 H D AST 112 H ALT 19 Alkaline Phosphatase 126 H Total Protein 7.1 Albumin 3.0 L Lipase Stool Occult Blood 02/11/18 14:18 RBC 2.74 L MCV 108.0 H MCHC 34.8 RDW 19.0 H D MPV 9.4 Neutrophils % 69.7 D Lymphocytes % 21.4 D Monocytes % 6.9 Eosinophils % 1.0 Basophils % 1.0 - Medications Given in the ED: ED Medications Discontinued Medications Generic Name Dose Route Start Last Admin Trade Name Freq PRN Reason Stop Dose Admin Ceftriaxone Sodium 1 gm/ 100 mls @ 200 mls/hr 02/11/18 16:41 02/11/18 17:45 Dextrose IVPB 02/11/18 17:10 200 mls/hr ONCE ONE Administration Protocol Sodium Chloride 1,000 mls @ 1,000 mls/hr 02/11/18 18:34 02/11/18 18:36 Normal Saline - IV 02/11/18 19:33 1,000 mls/hr ASDIR STA Administration Morphine Sulfate 4 mg 02/11/18 14:25 02/11/18 14:31 Morphine Injection - IVPUSH 02/11/18 14:26 4 mg ONCE ONE Administration Medical Decision Making - Medical Decision Making 02/11/18 19:50 Patient is a 52F with history of anemia, GERD, pancreatitis, HTN, HLD, anxiety, depresssion, hypothyroidism (on synthroid), chronic alcohol abuse here today complaining of abdominal pain. Labs reviewed: Laboratory Tests 02/11/18 02/11/18 02/11/18 14:18 14:18 14:18 WBC 4.7 D Hgb 10.3 L D Hct 29.6 L Plt Count 107 L D INR 1.44 H D Lactic Acid Total Bilirubin 4.1 H D AST 112 H ALT 19 Lipase Stool Occult Blood 02/11/18 02/11/18 02/11/18 14:18 16:03 16:12 WBC Hgb Hct Plt Count INR Lactic Acid 5.9 H* Total Bilirubin AST ALT Lipase 222 Stool Occult Blood Negative CB shows anemia, INR elevated, bilirubin elevated, lactic acid elevated, second lactic acid ordered. Patient accepted for admission by Dr Loyd to med/surg. Consult for surgery put in. *DC/Admit/Observation/Transfer Diagnosis at time of Disposition: Cirrhosis Qualifiers: Hepatic cirrhosis type: unspecified hepatic cirrhosis Ascites presence: unspecified Qualified Code(s): K74.60 - Unspecified cirrhosis of liver Ascites Qualifiers: Ascites type: due to alcoholic cirrhosis Qualified Code(s): K70.31 - Alcoholic cirrhosis of liver with ascites - Discharge Dispostion Condition at time of disposition: Stable Decision to Admit order: Yes - Referrals Referrals: Matti Hutchison MD [Primary Care Provider] - - Patient Instructions - Post Discharge Activity
[2018-02-11] MEDS ORDERED: SODIUM CHLORIDE 0.45% 1,000 ML IV SCH (20:15)
[2018-02-11] MEDS ORDERED: morphine SULFATE 4 MG/ML VIAL IVPUSH ONE (20:45)
[2018-02-11] MEDS ORDERED: FUROSEMIDE 40 MG TABLET (FP) PO ONE (22:29)
[2018-02-11] MEDS ORDERED: SODIUM CHLORIDE 1,000 ML IV SCH (22:30)
[2018-02-11] MEDS ORDERED: FOLIC ACID INJECTION - 1 MG, THIAMINE HCL 100 MG, MULTIVIT INJECTION ADULT 10 ML in SOD... IVPB ONE (22:34)
[2018-02-11] MEDS ORDERED: POTASSIUM CHLORIDE TABS 20 MEQ TABLET.ER (FP) PO ONE ×2 (22:45→23:08)
--- NOTE | 2018-02-11 22:47 | HP ---
CHIEF COMPLAINT: abdominal pain GI: Dr. Crcoker HISTORY OF PRESENT ILLNESS: 52 year old female with a hx of HTN, HLD, hypothyroidism, pancreatitis, GERD presents to the hospital with a 3 day hx of diffuse, stabbing 10/10 abdominal pain in her suprapubic region and RUQ/LUQ. She states that she has never had this pain before. The pain does not radiate and is not associated with nausea/ vomiting. The pain is not associated with food. She did mention, however, that she recently vomited non-bloody/non-bilious emesis when brushing her teeth. Patient reports solid stools and had her last bowel movement yesterday. She states that her abdomen feels distended. She also acknowledges that her urine has had a dark red hue. Denies chest pain, SOB, n/v/d, fevers, chills. Patient has been admitted for detox from alcohol multiple times in the past. ER course was notable for: (1) LA 5.9 (2) K 3.4 (3) CT significant for ascites, cirrhosis, thickening of gastric antral wall PAST MEDICAL HISTORY: HTN, HLD, hypothyroidism, pancreatitis, GERD PAST SURGICAL HISTORY: none Social History: Smoking: never Alcohol: 4-5 days a week, claims to drink 1-2 drinks a night Drugs: never Allergies No Known Allergies Allergy (Verified 02/09/18 18:45) HOME MEDICATIONS: Home Medications Medication Instructions Recorded Fluoxetine HCl 20 mg PO DAILY capsule 04/03/17 Levothyroxine [Synthroid -] 100 mcg PO DAILY 01/08/18 Pantoprazole Sodium [Protonix -] 40 mg PO DAILY #30 tablet.ec 02/09/18 REVIEW OF SYSTEMS CONSTITUTIONAL: weight change (GAIN) Absent: fever, chills, diaphoresis, generalized weakness, malaise, loss of appetite, HEENT: Absent: rhinorrhea, nasal congestion, throat pain, throat swelling, difficulty swallowing, mouth swelling, ear pain, eye pain, visual changes CARDIOVASCULAR: peripheral edema Absent: chest pain, syncope, palpitations, irregular heart rate, lightheadedness , RESPIRATORY: Absent: cough, shortness of breath, dyspnea with exertion, orthopnea, wheezing, stridor, hemoptysis GASTROINTESTINAL:abdominal pain, abdominal distension Absent: nausea, vomiting, diarrhea, constipation, melena, hematochezia GENITOURINARY: Absent: dysuria, frequency, urgency, hesitancy, hematuria, flank pain, genital pain MUSCULOSKELETAL: Absent: myalgia, arthralgia, joint swelling, back pain, neck pain SKIN: Absent: rash, itching, pallor HEMATOLOGIC/IMMUNOLOGIC: Absent: easy bleeding, easy bruising, lymphadenopathy, frequent infections ENDOCRINE: Absent: unexplained weight gain, unexplained weight loss, heat intolerance, cold intolerance NEUROLOGIC: Absent: headache, focal weakness or paresthesias, dizziness, unsteady gait, seizure, mental status changes, bladder or bowel incontinence PSYCHIATRIC: Absent: anxiety, depression, suicidal or homicidal ideation, hallucinations. PHYSICAL EXAMINATION Vital Signs - 24 hr 02/11/18 02/11/18 13:56 19:25 Temperature 98.3 F Pulse Rate 114 H Pulse Rate [ 96 H Left Radial] Respiratory 22 19 Rate Blood Pressure 130/80 Blood Pressure 140/89 [Right Arm] O2 Sat by Pulse 95 Oximetry (%) GENERAL: A&Ox3, no acute distress, EYES: PERRLA, horizontal nystagmus noted in both eyes, scleral icterus present ENT: Moist mucus membranes NECK: No JVD LUNGS: CTA, no wheezes HEART: mildly tachycardic, no murmurs ABDOMEN: distended, bowel sounds present, significantly tender to palpation in suprapubic region and LUQ/RUQ, fluid wave present, no hepatosplenomegaly palpated, abdomen dull to percussion MUSCULOSKELETAL: No CVA Tenderness EXTREMITIES: 2+ pulses, 1+ peripheral edema noted NEUROLOGICAL: Cranial nerves II-XII intact. Laboratory Last Values WBC 4.7 K/mm3 (4.0-10.0) D 02/11/18 14:18 RBC 2.74 M/mm3 (3.60-5.2) L 02/11/18 14:18 Hgb 10.3 GM/dL (10.7-15.3) L D 02/11/18 14:18 Hct 29.6 % (32.4-45.2) L 02/11/18 14:18 MCV 108.0 fl (80-96) H 02/11/18 14:18 MCH 37.6 pg (25.7-33.7) H 02/11/18 14:18 MCHC 34.8 g/dl (32.0-36.0) 02/11/18 14:18 RDW 19.0 % (11.6-15.6) H D 02/11/18 14:18 Plt Count 107 K/MM3 (134-434) L D 02/11/18 14:18 MPV 9.4 fl (7.5-11.1) 02/11/18 14:18 Neutrophils % 69.7 % (42.8-82.8) D 02/11/18 14:18 Lymphocytes % 21.4 % (8-40) D 02/11/18 14:18 Monocytes % 6.9 % (3.8-10.2) 02/11/18 14:18 Eosinophils % 1.0 % (0-4.5) 02/11/18 14:18 Basophils % 1.0 % (0-2.0) 02/11/18 14:18 PT with INR 16.30 SEC (9.7-13.0) H 02/11/18 14:18 INR 1.44 (0.82-1.09) H D 02/11/18 14:18 PTT (Actin FS) 32.0 SECONDS (26.9-34.4) 02/11/18 14:18 Sodium 141 mmol/L (136-145) 02/11/18 14:18 Potassium 3.4 mmol/L (3.5-5.1) L 02/11/18 14:18 Chloride 101 mmol/L (98-107) 02/11/18 14:18 Carbon Dioxide 25 mmol/L (21-32) 02/11/18 14:18 Anion Gap 15 (8-16) 02/11/18 14:18 BUN 4 mg/dL (7-18) L 02/11/18 14:18 Creatinine 0.7 mg/dL (0.55-1.02) 02/11/18 14:18 Creat Clearance w eGFR > 60 (>60) 02/11/18 14:18 Random Glucose 98 mg/dL (74-106) 02/11/18 14:18 Lactic Acid 4.4 mmol/L (0.0-2.0) H* 02/11/18 21:24 Calcium 7.1 mg/dL (8.5-10.1) L 02/11/18 14:18 Total Bilirubin 4.1 mg/dL (0.2-1.0) H D 02/11/18 14:18 AST 112 U/L (15-37) H 02/11/18 14:18 ALT 19 U/L (12-78) 02/11/18 14:18 Alkaline Phosphatase 126 U/L (45-117) H 02/11/18 14:18 Ammonia 69.60 umol/L (11-32) H 02/11/18 14:33 Total Protein 7.1 g/dl (6.4-8.2) 02/11/18 14:18 Albumin 3.0 g/dl (3.4-5.0) L 02/11/18 14:18 Lipase 222 U/L (73-393) 02/11/18 16:12 Stool Occult Blood Negative (NEGATIVE) 02/11/18 16:03 HIV 1&2 Antibody Screen Negative 02/11/18 23:19 HIV P24 Antigen Negative 02/11/18 23:19 IMAGING: CT ABD/PEL W/ Contrast Findings suggestive of liver cirrhosis and large amount of free fluid/ascites in the abdomen and pelvis. The liver is within normal limits in size with a slightly irregular contour and heterogeneous attenuation. Normal size spleen. No gross varicose veins are present. Partial distention of the stomach is limiting evaluation of its wall. There is suggestion of thickening of the gastric antrum wall. Dilatation of the distal duodenum and proximal jejunal loops with mild wall thickening that may be due to ileus and surrounding ascites. Cannot rule out an inflammatory/infectious process. Limited evaluation of a collapsed colon with suggestion of diffuse thickening of its wall, in particular the cecum and proximal ascending colon as well as the transverse and descending colon, cannot rule out colitis. Further evaluation is needed No free air is identified. L3-L4 moderate to marked degenerative disc disease. Case discussed with Dr. Carrillo, emergency room attending physician. ASSESSMENT/PLAN: 52 year old female with a hx of HTN, HLD, hypothyroidism, pancreatitis, GERD presented to the hospital for severe abdominal pain and found to have decompensated liver cirrhosis likely 2/2 chronic alcoholism #Decompensated Liver Cirrhosis: likely 2/2 chronic alcoholism - This is likely what is causing the patient's abdominal pain -Ascites present as well as coagulopathy (increased INR), jaundice (t. bili elevated), and decreased albumin, ammonia elevated -No evidence of altered mental status -MELD SCORE 16 -Will need diagnostic paracentesis by IR - did not receive while in ED -once paracentesis is performed, can calculate SAAG and send culture + cell count -Will have to r/o spontaneous bacterial peritonitis - at the moment, start empiric ceftriaxone 1gm QD -US liver to further assess status of liver -trial of lasix 40mg for diuresing the abdominal fluid - watch potassium level in AM, add spironolactone 100mg -Ammonia level elevated - will possibly require lactulose/rifaximin - will wait for GI evaluation -lactic acid elevated - likely 2/2 alcohol use and liver disease -GI consult Dr. Crocker appreciated for possible EGD to assess for varices -HIV + Hep B/C tests ordered -continuous bedrest due to uneasy gait and fall risk -fall precautions -2gm sodium diet after possible EGD #Chronic Alcoholism: unreliable history of when her last drink was, will treat in the case of possible withdrawal -Due to hepatic dysfunction, lorazepam protocol (2mg q6h for 4 doses, then 1mg for 8 doses) -Banana bag ordered -EtOH level ordered -f/u Utox #R/O Mesenteric Ischemia - in differential due to severe pain and elevated lactic acid -ordered CTA abd to r/o mesenteric ischemia but patient recently had contrast and was unable to be performed -re-evaluate and consider reordering in Am -appreciate GI reccs #Hypokalemia: K 3.4 -mag level (0.8) replete with 2gm mag and recheck in Am -replete K with 1 Kdur #Hypomagnesemia: mag 0.8 -give 2gm mag -repete mag in AM #Hypothyroidism -continue synthroid 100mcg daily #Depression/Anxiety -continue fluoxetine 20mg PO daily #FEN -Banana bag running -Normal saline @ 83cc/hr -replete lytes in AM -NPO after midnight for possible EGD tomorrow #Prophylaxis -heparin 5000 subq TID #Disposition -Admit to med-surg Visit type - Emergency Visit Emergency Visit: Yes ED Registration Date: 02/11/18 Care time: The patient presented to the Emergency Department on the above date and was hospitalized for further evaluation of their emergent condition. - New Patient This patient is new to me today: Yes Date on this admission: 02/12/18 - Critical Care Critical Care patient: No Hospitalist Screening - Colonoscopy Questionnaire Colonoscopy Questionnaire: Colonoscopy Questionnaire - Patient: 50 - 75 years old and never had a screening colonoscopy: No History of colon or rectal polyps, or CA: No History of IBD, Crohn's disease or UC: No History of abdominal radiation therapy as a child: No - Relative: 1 with colon or rectal CA, or polyps at age 60 or younger: No Colon or rectal CA diagnosed at age 45 or younger: No Multiple relatives with colon or rectal CA: No - Outcome: Screening Result: Negative Screen
[2018-02-11] MEDS ORDERED: FUROSEMIDE 40 MG TABLET (FP) ONE (23:08)
[2018-02-11] MEDS ORDERED: HEPARIN NA (PORCINE) 5,000 UNITS/ML 1ML VIAL ONE (23:08)
[2018-02-11] MEDS: HEPARIN NA (PORCINE) 5,000 UNITS/ML 1ML VIAL SQ SCH (23:33)
[2018-02-12 00:16] LABS: MAGNESIUM 0.8 mg/dL (1.8-2.4)
[2018-02-12] MEDS ORDERED: MAGNESIUM SULF 50% (8.12 MEQ/2 ML-1 GM VIAL) IVPB ONE ×2 (00:20→16:38)
--- NOTE | 2018-02-12 02:03 | PN ---
Teaching Attending Note Name of Resident: Lenny Hooks ATTENDING PHYSICIAN STATEMENT I saw and evaluated the patient. Chart, data, imaging reviewed. I reviewed the resident's note and discussed the case with the resident. I agree with the resident's findings and plan as documented. SUBJECTIVE: 52 year old female with a hx of HTN, HLD, hypothyroidism, pancreatitis, GERD and chronic etoh abuse c/o 3 day history of sharp abdominal pain. No relation to food. No trauma. Some nausea, 1 episode of vomiting. No diarrhea mentioned. She reports dark urine, last BM was 1 day ago. No fevers or chills. OBJECTIVE: Last Vital Signs Temp Pulse Resp BP Pulse Ox 98.5 F 89 19 138/78 98 02/11/18 23:57 02/11/18 23:57 02/11/18 23:57 02/11/18 23:57 02/11/18 23:57 general -appears chronically ill heent- icteric sclera, moist oral mucosa neck -supple cv - s1+s2+rrr chest- cta b/l abdomen -mild distention, lower abdominal tenderness, BS+ ext- 1+ b/l lower ext pitting edema Abnormal Lab Results 02/11/18 02/11/18 02/11/18 14:18 14:18 14:18 RBC 2.74 L Hgb 10.3 L D Hct 29.6 L MCV 108.0 H MCH 37.6 H RDW 19.0 H D Plt Count 107 L D PT with INR 16.30 H INR 1.44 H D Potassium 3.4 L BUN 4 L Lactic Acid Calcium 7.1 L Magnesium Total Bilirubin 4.1 H D AST 112 H Alkaline Phosphatase 126 H Ammonia Creatine Kinase Albumin 3.0 L 02/11/18 02/11/18 02/11/18 14:18 14:33 21:24 RBC Hgb Hct MCV MCH RDW Plt Count PT with INR INR Potassium BUN Lactic Acid 5.9 H* 4.4 H* Calcium Magnesium Total Bilirubin AST Alkaline Phosphatase Ammonia 69.60 H Creatine Kinase Albumin 02/11/18 23:19 RBC Hgb Hct MCV MCH RDW Plt Count PT with INR INR Potassium BUN Lactic Acid Calcium Magnesium 0.8 L* Total Bilirubin AST Alkaline Phosphatase Ammonia Creatine Kinase 200 H Albumin cxr and abd ct reviewed ASSESSMENT AND PLAN: #52yo woman with abdominal pain, liver cirrhosis (newly discovered on CT of abdomen) likely secondary to chronic etoh abuse. Ascites likely secondary to liver cirrhosis itself. #Abdominal pain- likely from abdominal distention from ascites. Must r/o SBP. Lipase wnl. Lactic acidosis likely secondary to liver failure and Eoth abuse. Low suspicion for sepsis at the moment. -admit to med/surg -rocephin 1g IV q24hrs empirically for sbp -IR guided drainage of ascites -send cell count, culture -SAAG -counseled on etoh cessation -would like to r/o mesenteric ischemia but cannot do CTA of abdomen at this time (low suspicion as abd pain is probably from ascites) #Liver cirrhosis with coagulopathy - no signs of active bleeding -GI evaluation - for egd -start low dose furosemide and spironolactone -2g Na diet -i/o, daily weight -cabrera catheter -transthoracic echo -npo past midnight for possible egd #EtoH abuse -etoh level -WA protocol -banana bag -ativan standing and prn -counseling on etoh cessation -fall precations DVT ppx -heparin sc
[2018-02-12 06:40] LABS: COCAINE, UR NEGATIVE ng/ml (CUTOFF=300); METHADONE, UR NEGATIVE ng/ml (CUTOFF=300); PHENCYCLIDINE,URINE NEGATIVE ng/ml (CUTOFF=25); URINE AMPHETAMINES NEGATIVE ng/ml (CUTOFF=500); URINE BARBITURATES NEGATIVE ng/ml (CUTOFF=200); URINE BENZODIAZEPINES NEGATIVE ng/ml (CUTOFF=200)
[2018-02-12 06:43] LABS: OPIATES, URI POSITIVE ng/ml (CUTOFF=300)
[2018-02-12 08:10] LABS: URINE APPEARANCE CLEAR; URINE BILIRUBIN NEGATIVE (<2.0 mg/dL); URINE COLOR STRAW; URINE GLUCOSE (UA) NEGATIVE (NEGATIVE); URINE KETONE NEGATIVE (NEGATIVE); URINE LEUK ESTERASE NEGATIVE (NEGATIVE); URINE NITRITE NEGATIVE (NEGATIVE); URINE PROTEIN NEGATIVE (NEGATIVE); URINE UROBILINOGEN NEGATIVE mg/dL (0.2-1.0)
--- NOTE | 2018-02-12 08:31 | PN ---
Teaching Attending Note Name of Resident: Lenny Garcia ATTENDING PHYSICIAN STATEMENT I saw and evaluated the patient. I reviewed the resident's note and discussed the case with the resident. I agree with the resident's findings and plan as documented. SUBJECTIVE: Patient feels like 9 months , c/o having distended abdomen, and c/o mild abdominal pain. OBJECTIVE: Vital Signs Temperature 98.7 F 02/12/18 07:32 Pulse Rate 108 H 02/12/18 07:32 Respiratory Rate 20 02/12/18 07:32 Blood Pressure 150/77 02/12/18 07:32 O2 Sat by Pulse Oximetry (%) 98 02/12/18 03:59 GENERAL: A&Ox3, no acute distress, EYES: PERRLA, horizontal nystagmus noted in both eyes, scleral icterus present ENT: Moist mucus membranes NECK: No JVD LUNGS: CTA, no wheezes HEART: mildly tachycardic, no murmurs ABDOMEN: distended, bowel sounds present, mild tenderness to palpation in suprapubic region and LUQ/RUQ, fluid wave present, positive hepatomegaly abdomen dull to percussion MUSCULOSKELETAL: No CVA Tenderness EXTREMITIES: 2+ pulses, 1+ peripheral edema noted, c/o having Lipoma of right knee area NEUROLOGICAL: Cranial nerves II-XII grossly intact. CBCD WBC 4.7 K/mm3 (4.0-10.0) D 02/11/18 14:18 RBC 2.74 M/mm3 (3.60-5.2) L 02/11/18 14:18 Hgb 10.3 GM/dL (10.7-15.3) L D 02/11/18 14:18 Hct 29.6 % (32.4-45.2) L 02/11/18 14:18 MCV 108.0 fl (80-96) H 02/11/18 14:18 MCHC 34.8 g/dl (32.0-36.0) 02/11/18 14:18 RDW 19.0 % (11.6-15.6) H D 02/11/18 14:18 Plt Count 107 K/MM3 (134-434) L D 02/11/18 14:18 MPV 9.4 fl (7.5-11.1) 02/11/18 14:18 CMP Sodium 141 mmol/L (136-145) 02/11/18 14:18 Potassium 3.4 mmol/L (3.5-5.1) L 02/11/18 14:18 Chloride 101 mmol/L (98-107) 02/11/18 14:18 Carbon Dioxide 25 mmol/L (21-32) 02/11/18 14:18 Anion Gap 15 (8-16) 02/11/18 14:18 BUN 4 mg/dL (7-18) L 02/11/18 14:18 Creatinine 0.7 mg/dL (0.55-1.02) 02/11/18 14:18 Creat Clearance w eGFR > 60 (>60) 02/11/18 14:18 Random Glucose 98 mg/dL (74-106) 02/11/18 14:18 Calcium 7.1 mg/dL (8.5-10.1) L 02/11/18 14:18 Total Bilirubin 4.1 mg/dL (0.2-1.0) H D 02/11/18 14:18 AST 112 U/L (15-37) H 02/11/18 14:18 ALT 19 U/L (12-78) 02/11/18 14:18 Alkaline Phosphatase 126 U/L (45-117) H 02/11/18 14:18 Total Protein 7.1 g/dl (6.4-8.2) 02/11/18 14:18 Albumin 3.0 g/dl (3.4-5.0) L 02/11/18 14:18 CARDIAC ENZYMES Creatine Kinase 200 IU/L (26-192) H 02/11/18 23:19 Troponin I < 0.02 ng/ml (0.00-0.05) 02/11/18 23:19 Home Medications Medication Instructions Recorded Fluoxetine HCl 20 mg PO DAILY capsule 04/03/17 Levothyroxine [Synthroid -] 100 mcg PO DAILY 01/08/18 Pantoprazole Sodium [Protonix -] 40 mg PO DAILY #30 tablet.ec 02/09/18 Current Medications Generic Name Dose Route Start Last Admin Trade Name Freq PRN Reason Stop Dose Admin Fluoxetine HCl 20 mg 02/12/18 10:00 Prozac - PO DAILY ANDREW Folic Acid 1 mg 02/12/18 10:00 Folic Acid - PO DAILY ANDREW Furosemide 40 mg 02/12/18 10:00 Lasix - PO DAILY ANDREW Heparin Sodium (Porcine) 5,000 unit 02/11/18 22:30 02/11/18 23:33 Heparin - SQ 5,000 unit TID ANDREW Administration Sodium Chloride 1,000 mls @ 83 mls/hr 02/11/18 22:30 02/11/18 23:33 Normal Saline - IV 83 mls/hr ASDIR ANDREW Administration Ceftriaxone Sodium 1 gm/ 50 mls @ 100 mls/hr 02/12/18 10:00 Dextrose IVPB DAILY [facility] Protocol Levothyroxine Sodium 100 mcg 02/12/18 07:00 Synthroid - PO DAILY@0700 ANDREW Lorazepam 1 mg 02/12/18 06:00 Ativan Injection - IVPUSH 02/14/18 00:01 Q6H ANDREW Pantoprazole Sodium 40 mg 02/12/18 10:00 Protonix - PO DAILY ANDREW Spironolactone 100 mg 02/12/18 10:00 Aldactone - PO DAILY ANDREW Thiamine HCl 100 mg 02/12/18 10:00 Vitamin B1 - PO DAILY [facility] EXAM#: TYPE/EXAM: RESULT: [id number] CT/ABDOMEN PELVIS CT WITH CONTR Abdominal pain CT scan of the abdomen and pelvis following intravenous contrast. Coronal and sagittal reformatted images were obtained 100 cc of Omnipaque 350 was intravenously injected Comparison: None available Visualized lung base appears unremarkable and the heart is within normal limits in size. The liver is within normal limits in size and likely nodular margin. The spleen is within normal limits in size and attenuation. Partially distended stomach significantly limiting evaluation of its wall. However, there is suggestion of thickening of the gastric antrum wall. The gallbladder is slightly over distended without intraluminal stones or wall thickening. Normal-appearing appendix. Both adrenal glands and both kidneys appear unremarkable there is dilatation and thickening of the proximal jejunal loops. There is a large amount of ascites in the abdomen and pelvis. There is no evidence of small bowel obstruction. Evaluation of the colon is quite limited due to lack of oral contrast. The colon is essentially collapsed with suggestion of diffuse thickening of its wall except for relative sparing of the mid and distal sigmoid colon wall. Urinary bladder is partially distended without wall thickening. Normal size uterus with a partially exophytic calcified fibroid measuring 1.5 cm. Visualized osseous structures appear intact with moderate to marked degenerative disc disease at L3 -L4 level. CXR:: [id number] EXAM#: TYPE/EXAM: RESULT: [id number] RAD/CHEST X-RAY PORTABLE * HISTORY PROVIDED: Pulmonary evaluation. A single frontal portable projection of the chest at 2:28 PM is submitted. The heart size is within normal limits. The lung whipple are free of pulmonary infiltrates or pleural effusions. IMPRESSION: No acute disease. ASSESSMENT AND PLAN: 52 year old female with a hx of HTN, HLD, hypothyroidism, pancreatitis, GERD presented to the hospital for severe abdominal pain and found to have decompensated liver cirrhosis likely 2/2 chronic alcoholism #Decompensated Liver Cirrhosis:due chronic alcoholism -MELD SCORE 16 , going to IR in am diagnostic and therapeutic paracentesis by IR -GI consult Dr. Crocker appreciated for possible EGD to assess for varices ; HIV + Hep B/C tests ordered -continuous bedrest due to uneasy gait and fall risk, fall precautions, On Rocephin IV 1gm daily for possible SBP -2gm sodium diet after possible EGD #Chronic Alcoholism:alcohol aBSTINENCE, CONTINUE FOLIC ACID/THIAMINE . #R/O Mesenteric Ischemia - Ordered CTA abd to r/o mesenteric ischemia but patient recently had contrast and was unable to be performed #Hypokalemia: K 3.4 , CHECK,MAG, PHOS AND REPLETE NEEDED #Hypomagnesemia: mag 0.8 , give 2gm mag, repLete mag NEEDED. #Hypothyroidism continue synthroid 100mcg daily #Depression/Anxiety continue fluoxetine 20mg PO daily NPO after midnight for IR IN tomorrow #dvt PX: HOLD HEPARIN SINCE HER PALTELETS COUNT IS IN 70S CHECK PHOS
[2018-02-12 09:10] LABS: HEMATOCRIT 29.8 % (32.4-45.2); HEMOGLOBIN 10.1 GM/dL (10.7-15.3); MEAN CELL VOLUME 108.9 fl (80-96); MEAN PLT VOLUME 10.7 fl (7.5-11.1); PLATELET COUNT 76 K/MM3 (134-434); RBC 2.74 M/mm3 (3.60-5.2); RDW 18.9 % (11.6-15.6); WHITE BLOOD COUNT 3.8 K/mm3 (4.0-10.0)
[2018-02-12] MEDS: HEPARIN NA (PORCINE) 5,000 UNITS/ML 1ML VIAL SQ SCH ×2 (09:26→13:34)
[2018-02-12] MEDS ORDERED: morphine SULFATE 4 MG/ML VIAL IVPUSH ONE (09:30)
[2018-02-12] MEDS ORDERED: cefTRIAXone SODIUM 1 GM VIAL ONE (09:33)
[2018-02-12] MEDS ORDERED: DEXTROSE 5%-WATER - 50 ML IVPB ONE (09:33)
[2018-02-12 09:34] LABS: INR 1.5 (0.82-1.09); PROTHROMBIN TIME (PATIENT) 16.9 SEC (9.7-13.0)
[2018-02-12] MEDS: FUROSEMIDE 40 MG TABLET (FP) PO SCH (09:37)
[2018-02-12] MEDS: LEVOTHYROXINE NA 100 MCG TABLET (FP) PO SCH (09:37)
[2018-02-12 09:38] LABS: ALBUMIN 2.7 g/dl (3.4-5.0); ANION GAP 14 (8-16); BLOOD UREA NITROGEN 3 mg/dL (7-18); CHLORIDE 101 mmol/L (98-107); CO2 24 mmol/L (21-32); GLUCOSE,RANDOM 86 mg/dL (74-106); MAGNESIUM 1.1 mg/dL (1.8-2.4); POTASSIUM 3.3 mmol/L (3.5-5.1); SODIUM 139 mmol/L (136-145)
[2018-02-12] MEDS: PANTOPRAZOLE 40 MG TABLET (FP) PO SCH (09:39)
[2018-02-12] MEDS: CEFTRIAXONE 1 GM in DEXTROSE 5%-WATER - 50 ML IVPB SCH (09:39)
[2018-02-12] MEDS: THIAMINE HCL 100 MG TABLET (FP) PO SCH ×2 (09:39→21:31)
[2018-02-12] MEDS: FOLIC ACID 1 MG TABLET (FP) PO SCH (09:39)
[2018-02-12 09:42] LABS: ALK PHOS 111 U/L (45-117); BILIRUBIN,TOTAL 3.8 mg/dL (0.2-1.0); CREATININE 0.5 mg/dL (0.55-1.02); PHOSPHOROUS 2.7 mg/dL (2.5-4.9); SGOT/AST 95 U/L (15-37); SGPT/ALT 17 U/L (12-78); TOT PROT 6.6 g/dl (6.4-8.2)
[2018-02-12 09:52] LABS: CALCIUM 6.3 mg/dL (8.5-10.1)
[2018-02-12] MEDS ORDERED: SPIRONOLACTONE 25 MG TABLET (FP) PO SCH (10:00)
--- NOTE | 2018-02-12 10:20 | PN ---
Physical Exam: SUBJECTIVE: Briefly, 52yo F with h/o HTN, HLD, Hypothyroidism, and GERD who presented to the hospital with 3 days worth of diffuse 10/10 upper quadrant abdominal pain. She endorses NB/NB emesis when brushing her teeth. Pt denies any correlation with food, nausea, and radiation of the pain. Pt's last BM was 2 days ago. Denies any SOB, CP/discomfort, palpitations, fevers and chills. Pt's last drink was "a while ago" for which she was previously detoxed off of. Currently pt reports having abdominal pain, however it is dull and she attributes it to the distention of her belly. Pt denies any active SOB, CP/ discomfort, and palpitations. She also denies LE edema. OBJECTIVE: Vital Signs Period Temp Pulse Resp BP Sys/Packer Pulse Ox Last 24 Hr 98.3 F-98.7 F 89-114 19-22 114-150/74-89 95-98 GENERAL: NAD, awake, alert, and fully orientedx3 HEENT: EOMI, LYLA, slightly icteric sclera, jaundiced mucosa noted, moist mucosa NECK: Minimal JVD present, soft, no lymphadenopathy LUNGS: CTA bilaterally, no wheezes, no crackles, no accessory muscle use. HEART: RRR, S1, S2 without murmur ABDOMEN: Tense severe distention, no overt abdominal tenderness, distant bowel sounds, no guarding, shifting dullness appreciated, no guarding. Could not appreciated size of liver due to distention, no asterixis noted EXTREMITIES: 2+ DP pulses, warm, well-perfused, no edema. NEUROLOGICAL: CN II - XII intact. Normal speech, strength 5/5 grossly in upper and lower extremities, gait not observed. PSYCH: Normal mood, normal affect. SKIN: Warm, dry, normal turgor, no rashes or lesions noted Laboratory Results - last 24 hr 02/11/18 02/11/18 02/11/18 14:18 14:18 14:18 WBC 4.7 D RBC 2.74 L Hgb 10.3 L D Hct 29.6 L MCV 108.0 H MCH 37.6 H MCHC 34.8 RDW 19.0 H D Plt Count 107 L D MPV 9.4 Neutrophils % 69.7 D Lymphocytes % 21.4 D Monocytes % 6.9 Eosinophils % 1.0 Basophils % 1.0 PT with INR 16.30 H INR 1.44 H D PTT (Actin FS) 32.0 Sodium 141 Potassium 3.4 L Chloride 101 Carbon Dioxide 25 Anion Gap 15 BUN 4 L Creatinine 0.7 Creat Clearance w eGFR > 60 Random Glucose 98 Lactic Acid Calcium 7.1 L Phosphorus Magnesium Total Bilirubin 4.1 H D AST 112 H ALT 19 Alkaline Phosphatase 126 H Ammonia Creatine Kinase Creatine Kinase Index CK-MB (CK-2) Troponin I < 0.02 Total Protein 7.1 Albumin 3.0 L Lipase Urine Color Urine Appearance Urine pH Ur Specific [place] Urine Protein Urine Glucose (UA) Urine Ketones Urine Blood Urine Nitrite Urine Bilirubin Urine Urobilinogen Ur Leukocyte Esterase Stool Occult Blood Opiates Screen Methadone Screen Barbiturate Screen Phencyclidine Screen Ur Amphetamines Screen MDMA (Ecstasy) Screen Benzodiazepines Screen Cocaine Screen U Marijuana (THC) Screen HIV 1&2 Antibody Screen HIV P24 Antigen 02/11/18 02/11/18 02/11/18 14:18 14:33 16:03 WBC RBC Hgb Hct MCV MCH MCHC RDW Plt Count MPV Neutrophils % Lymphocytes % Monocytes % Eosinophils % Basophils % PT with INR INR PTT (Actin FS) Sodium Potassium Chloride Carbon Dioxide Anion Gap BUN Creatinine Creat Clearance w eGFR Random Glucose Lactic Acid 5.9 H* Calcium Phosphorus Magnesium Total Bilirubin AST ALT Alkaline Phosphatase Ammonia 69.60 H Creatine Kinase Creatine Kinase Index CK-MB (CK-2) Troponin I Total Protein Albumin Lipase Urine Color Urine Appearance Urine pH Ur Specific [place] Urine Protein Urine Glucose (UA) Urine Ketones Urine Blood Urine Nitrite Urine Bilirubin Urine Urobilinogen Ur Leukocyte Esterase Stool Occult Blood Negative Opiates Screen Methadone Screen Barbiturate Screen Phencyclidine Screen Ur Amphetamines Screen MDMA (Ecstasy) Screen Benzodiazepines Screen Cocaine Screen U Marijuana (THC) Screen HIV 1&2 Antibody Screen HIV P24 Antigen 02/11/18 02/11/18 02/11/18 16:12 16:12 21:24 WBC RBC Hgb Hct MCV MCH MCHC RDW Plt Count MPV Neutrophils % Lymphocytes % Monocytes % Eosinophils % Basophils % PT with INR INR PTT (Actin FS) Sodium Potassium Chloride Carbon Dioxide Anion Gap BUN Creatinine Creat Clearance w eGFR Random Glucose Lactic Acid 4.4 H* Calcium Phosphorus Magnesium Total Bilirubin AST ALT Alkaline Phosphatase Ammonia Creatine Kinase Creatine Kinase Index CK-MB (CK-2) Troponin I Cancelled Total Protein Albumin Lipase 222 Urine Color Urine Appearance Urine pH Ur Specific [place] Urine Protein Urine Glucose (UA) Urine Ketones Urine Blood Urine Nitrite Urine Bilirubin Urine Urobilinogen Ur Leukocyte Esterase Stool Occult Blood Opiates Screen Methadone Screen Barbiturate Screen Phencyclidine Screen Ur Amphetamines Screen MDMA (Ecstasy) Screen Benzodiazepines Screen Cocaine Screen U Marijuana (THC) Screen HIV 1&2 Antibody Screen HIV P24 Antigen 02/11/18 02/11/18 02/12/18 23:19 23:19 05:10 WBC RBC Hgb Hct MCV MCH MCHC RDW Plt Count MPV Neutrophils % Lymphocytes % Monocytes % Eosinophils % Basophils % PT with INR INR PTT (Actin FS) Sodium Potassium Chloride Carbon Dioxide Anion Gap BUN Creatinine Creat Clearance w eGFR Random Glucose Lactic Acid Calcium Phosphorus Magnesium 0.8 L* Total Bilirubin AST ALT Alkaline Phosphatase Ammonia Creatine Kinase 200 H Creatine Kinase Index 1.4 CK-MB (CK-2) 2.928 Troponin I < 0.02 Total Protein Albumin Lipase Urine Color Straw Urine Appearance Clear Urine pH 6.0 Ur Specific [place] 1.009 Urine Protein Negative Urine Glucose (UA) Negative Urine Ketones Negative Urine Blood Negative Urine Nitrite Negative Urine Bilirubin Negative Urine Urobilinogen Negative Ur Leukocyte Esterase Negative Stool Occult Blood Opiates Screen Methadone Screen Barbiturate Screen Phencyclidine Screen Ur Amphetamines Screen MDMA (Ecstasy) Screen Benzodiazepines Screen Cocaine Screen U Marijuana (THC) Screen HIV 1&2 Antibody Screen Negative HIV P24 Antigen Negative 02/12/18 02/12/18 02/12/18 05:10 08:10 08:10 WBC 3.8 L RBC 2.74 L Hgb 10.1 L Hct 29.8 L MCV 108.9 H MCH 37.0 H MCHC 34.0 RDW 18.9 H Plt Count 76 L D MPV 10.7 D Neutrophils % Lymphocytes % Monocytes % Eosinophils % Basophils % PT with INR 16.90 H INR 1.50 H PTT (Actin FS) Sodium Potassium Chloride Carbon Dioxide Anion Gap BUN Creatinine Creat Clearance w eGFR Random Glucose Lactic Acid Calcium Phosphorus Magnesium Total Bilirubin AST ALT Alkaline Phosphatase Ammonia Creatine Kinase Creatine Kinase Index CK-MB (CK-2) Troponin I Total Protein Albumin Lipase Urine Color Urine Appearance Urine pH Ur Specific [place] Urine Protein Urine Glucose (UA) Urine Ketones Urine Blood Urine Nitrite Urine Bilirubin Urine Urobilinogen Ur Leukocyte Esterase Stool Occult Blood Opiates Screen Positive Methadone Screen Negative Barbiturate Screen Negative Phencyclidine Screen Negative Ur Amphetamines Screen Negative MDMA (Ecstasy) Screen Negative Benzodiazepines Screen Negative Cocaine Screen Negative U Marijuana (THC) Screen Negative HIV 1&2 Antibody Screen HIV P24 Antigen 02/12/18 02/12/18 08:10 08:10 WBC RBC Hgb Hct MCV MCH MCHC RDW Plt Count MPV Neutrophils % Lymphocytes % Monocytes % Eosinophils % Basophils % PT with INR INR PTT (Actin FS) Sodium 139 Potassium 3.3 L Chloride 101 Carbon Dioxide 24 Anion Gap 14 BUN 3 L Creatinine 0.5 L Creat Clearance w eGFR > 60 Random Glucose 86 Lactic Acid 2.9 H* Calcium 6.3 L* Phosphorus 2.7 Magnesium 1.1 L Total Bilirubin 3.8 H AST 95 H ALT 17 Alkaline Phosphatase 111 Ammonia Creatine Kinase Creatine Kinase Index CK-MB (CK-2) Troponin I Total Protein 6.6 Albumin 2.7 L Lipase Urine Color Urine Appearance Urine pH Ur Specific [place] Urine Protein Urine Glucose (UA) Urine Ketones Urine Blood Urine Nitrite Urine Bilirubin Urine Urobilinogen Ur Leukocyte Esterase Stool Occult Blood Opiates Screen Methadone Screen Barbiturate Screen Phencyclidine Screen Ur Amphetamines Screen MDMA (Ecstasy) Screen Benzodiazepines Screen Cocaine Screen U Marijuana (THC) Screen HIV 1&2 Antibody Screen HIV P24 Antigen Active Medications Generic Name Dose Route Start Last Admin Trade Name Bonifacioq PRN Reason Stop Dose Admin Fluoxetine HCl 20 mg 02/12/18 10:00 Prozac - PO DAILY ANDREW Folic Acid 1 mg 02/12/18 10:00 02/12/18 09:39 Folic Acid - PO 1 mg DAILY ANDREW Administration Furosemide 40 mg 02/12/18 10:00 02/12/18 09:37 Lasix - PO 40 mg DAILY ANDREW Administration Heparin Sodium (Porcine) 5,000 unit 02/11/18 22:30 02/12/18 09:26 Heparin - SQ Not Given TID ANDREW Sodium Chloride 1,000 mls @ 83 mls/hr 02/11/18 22:30 02/11/18 23:33 Normal Saline - IV 83 mls/hr ASDIR ANDREW Administration Ceftriaxone Sodium 1 gm/ 50 mls @ 100 mls/hr 02/12/18 10:00 02/12/18 09:39 Dextrose IVPB 100 mls/hr DAILY ANDREW Administration Protocol Levothyroxine Sodium 100 mcg 02/12/18 07:00 02/12/18 09:37 Synthroid - PO 100 mcg DAILY@0700 ANDREW Administration Lorazepam 1 mg 02/12/18 06:00 02/12/18 09:25 Ativan Injection - IVPUSH 02/14/18 00:01 1 mg Q6H ANDREW Administration Pantoprazole Sodium 40 mg 02/12/18 10:00 02/12/18 09:39 Protonix - PO 40 mg DAILY ANDREW Administration Spironolactone 100 mg 02/12/18 10:00 02/12/18 09:37 Aldactone - PO 100 mg DAILY ANDREW Administration Thiamine HCl 100 mg 02/12/18 10:00 02/12/18 09:39 Vitamin B1 - PO 100 mg DAILY ANDREW Administration ASSESSMENT/PLAN: 1) Decompensated liver failure --GI on board: Dr. Del Real --MELD 15 --Initiated Aldactone 25mg PO qDaily --Initiated Lasix 40mg PO qDaily --Will initiate lactulose and Rifaximine 550mg PO BID, however pt to go to CTA soon and will wait until after the test --Ammonia level to be ordered --IR order for US paracentesis --NPO after midnight --No AC or AP after midnight (pt should be avoiding anyway due to thrombocytopenia) ==Possibility of SBP so will continue Rocephin 1gm daily 2) Suspected esophageal varices --CTA at 1800h to be performed; 24h from contrast of CTAP performed --Possible EGD pending results --Will keep pt NPO until after test and will initiate sodium controlled diet 3) Thrombocytopenia --Monitor for signs of bleedinmg --No heparin SQ for now 4) Macrocytic anemia --Most likely due to lack of intrinsic factor from liver failure --Will add Thiamine 100mg PO qdaily --Will add Folic Acid 1mg PO qDaily 5) Hypothyroidism --Continue home 100mcg PO qDaily FEN Fluids: none indicated Electrolyte abnormalities: Hypokalemic; (40 Kdur), Hypocalcemia with correction for albumin (repleted IV) Nutrition: sodium controlled diet PPX: DVT - SCDs only due to thrombocytopenia GI - Protonix 40mg IV daily Dispo: CTA, paracentesis tomorrow AM Case discussed with Dr. Sky Garcia, DO - IM PGY-1 Visit type - Emergency Visit Emergency Visit: No - New Patient This patient is new to me today: Yes Date on this admission: 02/12/18 - Critical Care Critical Care patient: No
[2018-02-12] MEDS ORDERED: CALCIUM GLUCONATE 10% - 1,000 MG/10 ML VIAL IVPUSH ONE (10:22)
--- NOTE | 2018-02-12 10:39 | CONSULT ---
- Consultation REQUESTING PROVIDER:Evert CASTILLO CONSULT REQUEST: We have been asked to surgically evaluate this patient for abdominal distention and pain PCP:Tino Swanson HISTORY OF PRESENT ILLNESS: CTSP for evaluation and management of abdominal distention and pain; patient w/h/o EtOH use developed nausea and vomiting and diffuse abdominal pain; NOC; she has a h/o EtOH abuse PMHx: thyroid disease; ESLD PSHx: none Home Medications Medication Instructions Recorded Fluoxetine HCl 20 mg PO DAILY capsule 04/03/17 Levothyroxine [Synthroid -] 100 mcg PO DAILY 01/08/18 Pantoprazole Sodium [Protonix -] 40 mg PO DAILY #30 tablet.ec 02/09/18 Allergies Allergy/AdvReac Type Severity Reaction Status Date / Time No Known Allergies Allergy Verified 02/09/18 18:45 PHYSICAL EXAM: GENERAL: Awake, alert, and fully oriented, in no acute distress. HEAD: Normal with no signs of trauma. EYES: sclera anicteric, conjunctiva clear. NECK: Normal ROM, supple without lymphadenopathy, JVD, or masses. LABDOMEN: Soft, nontender, distended, normoactive bowel sounds, no guarding, no rebound, no masses. No organomegaly. Ascites/fluid wave present; no hernias MUSCULOSKELETAL: Normal ROM at all joints. No bony deformities or tenderness. No CVA tenderness. UPPER EXTREMITIES: 2+ pulses, warm, well-perfused. No cyanosis. Cap refill <2 seconds. No peripheral edema. LOWER EXTREMITIES: 2+ pulses, warm, well-perfused. No calf tenderness. Positive peripheral edema. NEUROLOGICAL: Normal speech, gait not observed. PSYCH: Cooperative. Good eye contact. Appropriate mood and affect. SKIN: Warm, dry, normal turgor, no rashes or lesions noted. Vital Signs Temperature 98.7 F 02/12/18 07:32 Pulse Rate 108 H 02/12/18 07:32 Respiratory Rate 20 02/12/18 07:32 Blood Pressure 150/77 02/12/18 07:32 O2 Sat by Pulse Oximetry (%) 98 02/12/18 03:59 Lab Results WBC 3.8 K/mm3 (4.0-10.0) L 02/12/18 08:10 RBC 2.74 M/mm3 (3.60-5.2) L 02/12/18 08:10 Hgb 10.1 GM/dL (10.7-15.3) L 02/12/18 08:10 Hct 29.8 % (32.4-45.2) L 02/12/18 08:10 MCV 108.9 fl (80-96) H 02/12/18 08:10 MCHC 34.0 g/dl (32.0-36.0) 02/12/18 08:10 RDW 18.9 % (11.6-15.6) H 02/12/18 08:10 Plt Count 76 K/MM3 (134-434) L D 02/12/18 08:10 Sodium 139 mmol/L (136-145) 02/12/18 08:10 Potassium 3.3 mmol/L (3.5-5.1) L 02/12/18 08:10 Chloride 101 mmol/L (98-107) 02/12/18 08:10 Carbon Dioxide 24 mmol/L (21-32) 02/12/18 08:10 Anion Gap 14 (8-16) 02/12/18 08:10 BUN 3 mg/dL (7-18) L 02/12/18 08:10 Creatinine 0.5 mg/dL (0.55-1.02) L 02/12/18 08:10 Random Glucose 86 mg/dL (74-106) 02/12/18 08:10 Calcium 6.3 mg/dL (8.5-10.1) L* 02/12/18 08:10 INR 1.50 (0.82-1.09) H 02/12/18 08:10 CT a/p reviewed; labs reviewed IMP: ascites from lliver failure PLAN: Medical management per GI; tanner calabrese, Samuel Garcia MD FACS
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
[2018-02-12] MEDS ORDERED: LORazepam 1 MG TABLET PO ONE (10:47)
[2018-02-12] MEDS ORDERED: POTASSIUM CHLORIDE TABS 20 MEQ TABLET.ER (FP) PO SCH (11:00)
[2018-02-12] MEDS ORDERED: CALCIUM GLUCONATE 10% - 1,000 MG in DEXTROSE 5%-WATER - 100 ML IVPB ONE (11:30)
--- NOTE | 2018-02-12 11:43 | EKG ---
Test Reason : Blood Pressure : / mmHG Vent. Rate : 092 BPM Atrial Rate : 092 BPM P-R Int : 122 ms QRS Dur : 076 ms QT Int : 396 ms P-R-T Axes : 064 015 033 degrees QTc Int : 489 ms NORMAL SINUS RHYTHM POSSIBLE LEFT ATRIAL ENLARGEMENT PROLONGED QT ABNORMAL ECG WHEN COMPARED WITH ECG OF 26-NOV-2017 14:26, NO SIGNIFICANT CHANGE WAS FOUND Confirmed by JOSE CASTILLO, MAME ([id number]) on 02/12/2018 11:42:59 AM Referred By: Confirmed By:MAME GARCIA MD
[2018-02-12] MEDS ORDERED: PT OWN MED DRAWER 7, Y5N ONE (11:45)
[2018-02-12] MEDS: FLUoxetine HCL 20 MG CAPSULE (FP) PO SCH (13:33)
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
[2018-02-12] MEDS ORDERED: MAGNESIUM SULFATE IN WATER 2 GM/50 ML IVPB IVPB ONE (16:45)
[2018-02-12] MEDS: LORazepam 1 MG TABLET PO PRN (20:21)
[2018-02-12] MEDS: SPIRONOLACTONE 25 MG TABLET (FP) PO SCH (21:31)
[2018-02-12] MEDS: RIFAXIMIN 550 MG TABLET (UD) PO SCH (21:31)
[2018-02-12] MEDS: LACTULOSE 20 GM/30 ML UDC (FOR ORAL USE ONLY) PO SCH (21:32)
[2018-02-13] MEDS: LACTULOSE 20 GM/30 ML UDC (FOR ORAL USE ONLY) PO SCH ×3 (05:20→21:42)
[2018-02-13] MEDS: LEVOTHYROXINE NA 100 MCG TABLET (FP) PO SCH (06:17)
[2018-02-13] MEDS: LORazepam 1 MG TABLET PO PRN ×2 (06:18→09:45)
[2018-02-13 08:53] LABS: HEMATOCRIT 26.8 % (32.4-45.2); HEMOGLOBIN 9.3 GM/dL (10.7-15.3); MCH 37.3 pg (25.7-33.7); MCHC 34.6 g/dl (32.0-36.0); MEAN CELL VOLUME 107.8 fl (80-96); MEAN PLT VOLUME 9.7 fl (7.5-11.1); PLATELET COUNT 51 K/MM3 (134-434); RBC 2.49 M/mm3 (3.60-5.2); RDW 18.2 % (11.6-15.6); WHITE BLOOD COUNT 2.5 K/mm3 (4.0-10.0)
[2018-02-13] MEDS ORDERED: PT OWN MED DRAWER 7, Y5N ONE (08:56)
[2018-02-13] MEDS ORDERED: cefTRIAXone SODIUM 1 GM VIAL ONE (08:56)
[2018-02-13] MEDS ORDERED: DEXTROSE 5%-WATER - 50 ML IVPB ONE (08:56)
[2018-02-13 09:06] LABS: INR 1.71 (0.82-1.09); PROTHROMBIN TIME (PATIENT) 19.3 SEC (9.7-13.0)
--- NOTE | 2018-02-13 09:22 | PN ---
<Tino Swanson - Last Filed: 02/13/18 19:49> Physical Exam: Patient went for paracentesis by IR this morning. Continue IV antibiotic, GI consult appreciated. No active bleeding. Vital Signs Temperature 97.9 F 02/13/18 15:51 Pulse Rate 117 H 02/13/18 15:51 Respiratory Rate 18 02/13/18 15:51 Blood Pressure 135/69 02/13/18 15:51 O2 Sat by Pulse Oximetry (%) 98 02/13/18 11:20 CBCD WBC 2.5 K/mm3 (4.0-10.0) L D 02/13/18 07:45 RBC 2.49 M/mm3 (3.60-5.2) L 02/13/18 07:45 Hgb 9.3 GM/dL (10.7-15.3) L 02/13/18 07:45 Hct 26.8 % (32.4-45.2) L 02/13/18 07:45 MCV 107.8 fl (80-96) H 02/13/18 07:45 MCHC 34.6 g/dl (32.0-36.0) 02/13/18 07:45 RDW 18.2 % (11.6-15.6) H 02/13/18 07:45 Plt Count 51 K/MM3 (134-434) L D 02/13/18 07:45 MPV 9.7 fl (7.5-11.1) 02/13/18 07:45 CMP Sodium 136 mmol/L (136-145) 02/13/18 07:45 Potassium 2.9 mmol/L (3.5-5.1) L* 02/13/18 16:40 Chloride 95 mmol/L (98-107) L 02/13/18 07:45 Carbon Dioxide 29 mmol/L (21-32) 02/13/18 07:45 Anion Gap 12 (8-16) 02/13/18 07:45 BUN 3 mg/dL (7-18) L 02/13/18 07:45 Creatinine 0.6 mg/dL (0.55-1.02) 02/13/18 07:45 Creat Clearance w eGFR > 60 (>60) 02/13/18 07:45 Random Glucose 89 mg/dL (74-106) 02/13/18 07:45 Calcium 6.9 mg/dL (8.5-10.1) L* 02/13/18 07:45 Total Bilirubin 4.3 mg/dL (0.2-1.0) H 02/13/18 07:45 AST 82 U/L (15-37) H 02/13/18 07:45 ALT 15 U/L (12-78) 02/13/18 07:45 Alkaline Phosphatase 104 U/L (45-117) 02/13/18 07:45 Total Protein 6.2 g/dl (6.4-8.2) L 02/13/18 07:45 Albumin 2.5 g/dl (3.4-5.0) L 02/13/18 07:45 CARDIAC ENZYMES Creatine Kinase 200 IU/L (26-192) H 02/11/18 23:19 Troponin I < 0.02 ng/ml (0.00-0.05) 02/11/18 23:19 Current Medications Generic Name Dose Route Start Last Admin Trade Name Sarwat PRN Reason Stop Dose Admin Fluoxetine HCl 20 mg 02/12/18 10:00 02/13/18 09:41 Prozac - PO 20 mg DAILY ANDREW Administration Folic Acid 1 mg 02/12/18 10:00 02/13/18 09:41 Folic Acid - PO 1 mg DAILY ANDREW Administration Furosemide 40 mg 02/12/18 10:00 02/13/18 09:41 Lasix - PO 40 mg DAILY ANDREW Administration Ceftriaxone Sodium 1 gm/ 50 mls @ 100 mls/hr 02/12/18 10:00 02/13/18 09:46 Dextrose IVPB 100 mls/hr DAILY ANDREW Administration Protocol Potassium Chloride 30 meq/ 315 mls @ 105 mls/hr 02/13/18 18:30 Sodium Chloride IVPB 02/13/18 21:29 ONCE ONE Lactulose 20 gm 02/12/18 22:00 02/13/18 13:33 Cephulac (Oral Use) PO 20 gm TID ANDREW Administration Levothyroxine Sodium 100 mcg 02/12/18 07:00 02/13/18 06:17 Synthroid - PO 100 mcg DAILY@0700 ANDREW Administration Pantoprazole Sodium 40 mg 02/12/18 10:00 02/13/18 09:45 Protonix - PO 40 mg DAILY ANDREW Administration Multivit/Folic Acid/Iron 1 tab 02/13/18 10:00 02/13/18 09:45 Vitamins (Sjr) - PO 1 tab DAILY ANDREW Administration Rifaximin 550 mg 02/12/18 22:00 02/13/18 09:45 Xifaxan - PO 550 mg BID ANDREW Administration Spironolactone 50 mg 02/12/18 22:00 02/13/18 09:44 Aldactone - PO 50 mg BID ANDREW Administration Thiamine HCl 100 mg 02/12/18 10:00 02/13/18 09:44 Vitamin B1 - PO 100 mg DAILY ANDREW Administration Thiamine HCl 100 mg 02/12/18 22:00 02/12/18 21:31 Vitamin B1 - PO 100 mg HS ANDREW Administration Home Medications Medication Instructions Recorded Fluoxetine HCl 20 mg PO DAILY capsule 04/03/17 Levothyroxine [Synthroid -] 100 mcg PO DAILY 01/08/18 Pantoprazole Sodium [Protonix -] 40 mg PO DAILY #30 tablet.ec 02/09/18 <Lenny Garcia - Last Filed: 02/15/18 17:26> Physical Exam: UPDATE: Repeat 1500h potassium 2.9 despite repletion; Kdur 40mEq with 3 runs of 10mEq KCl SUBJECTIVE: IR ultrasound guidance to be performed today. Pt experiencing some cramping this morning, however denies any new symptoms. She also endorses being hungry because she has been NPO for her procedure. OBJECTIVE: Vital Signs Period Temp Pulse Resp BP Sys/Packer Pulse Ox Last 24 Hr 97.9 F-99.1 F 86-126 18-20 136-152/76-103 100 GENERAL: NAD, awake, alert, and fully orientedx3 HEENT: EOMI, LYLA, sclera anicteric, jaundiced mucosa remains, moist mucosa NECK: No JVD LUNGS: CTA bilaterally, no wheezes, no crackles, no accessory muscle use. HEART: RRR, S1, S2 without murmur ABDOMEN: Tense distention, no tenderness, distant bowel sounds, no guarding, shifting dullness remains EXTREMITIES: 2+ DP pulses, warm, well-perfused, no edema. SKIN: Warm, dry, normal turgor, no rashes or lesions noted Laboratory Results - last 24 hr 02/12/18 02/12/18 02/12/18 08:10 08:10 08:10 WBC 3.8 L RBC 2.74 L Hgb 10.1 L Hct 29.8 L MCV 108.9 H MCH 37.0 H MCHC 34.0 RDW 18.9 H Plt Count 76 L D MPV 10.7 D PT with INR 16.90 H INR 1.50 H Sodium 139 Potassium 3.3 L Chloride 101 Carbon Dioxide 24 Anion Gap 14 BUN 3 L Creatinine 0.5 L Creat Clearance w eGFR > 60 Random Glucose 86 Lactic Acid Calcium 6.3 L* Phosphorus 2.7 Magnesium 1.1 L Total Bilirubin 3.8 H AST 95 H ALT 17 Alkaline Phosphatase 111 Ammonia Total Protein 6.6 Albumin 2.7 L 02/12/18 02/13/18 02/13/18 08:10 07:45 07:45 WBC 2.5 L D RBC 2.49 L Hgb 9.3 L Hct 26.8 L MCV 107.8 H MCH 37.3 H MCHC 34.6 RDW 18.2 H Plt Count 51 L D MPV 9.7 PT with INR 19.30 H INR 1.71 H Sodium Potassium Chloride Carbon Dioxide Anion Gap BUN Creatinine Creat Clearance w eGFR Random Glucose Lactic Acid 2.9 H* Calcium Phosphorus Magnesium Total Bilirubin AST ALT Alkaline Phosphatase Ammonia Total Protein Albumin 02/13/18 02/13/18 07:45 07:45 WBC RBC Hgb Hct MCV MCH MCHC RDW Plt Count MPV PT with INR INR Sodium Potassium Chloride Carbon Dioxide Anion Gap BUN Creatinine Creat Clearance w eGFR Random Glucose Lactic Acid 1.1 Calcium Phosphorus Magnesium Total Bilirubin AST ALT Alkaline Phosphatase Ammonia 58.95 H Total Protein Albumin Active Medications Generic Name Dose Route Start Last Admin Trade Name Freq PRN Reason Stop Dose Admin Fluoxetine HCl 20 mg 02/12/18 10:00 02/12/18 13:33 Prozac - PO 20 mg DAILY ANDREW Administration Folic Acid 1 mg 02/12/18 10:00 02/12/18 09:39 Folic Acid - PO 1 mg DAILY ANDREW Administration Furosemide 40 mg 02/12/18 10:00 02/12/18 09:37 Lasix - PO 40 mg DAILY ANDREW Administration Ceftriaxone Sodium 1 gm/ 50 mls @ 100 mls/hr 02/12/18 10:00 02/12/18 09:39 Dextrose IVPB 100 mls/hr DAILY ANDREW Administration Protocol Lactulose 20 gm 02/12/18 22:00 02/13/18 05:20 Cephulac (Oral Use) PO Not Given TID ANDREW Levothyroxine Sodium 100 mcg 02/12/18 07:00 02/13/18 06:17 Synthroid - PO 100 mcg DAILY@0700 ANDREW Administration Lorazepam 1 mg 02/12/18 10:48 02/13/18 06:18 Ativan - PO 1 mg Q4H PRN Administration WITHDRAWAL(CONT SUBST) Pantoprazole Sodium 40 mg 02/12/18 10:00 02/12/18 09:39 Protonix - PO 40 mg DAILY ANDREW Administration Multivit/Folic Acid/Iron 1 tab 02/13/18 10:00 Vitamins (Sjr) - PO DAILY ANDREW Rifaximin 550 mg 02/12/18 22:00 02/12/18 21:31 Xifaxan - PO 550 mg BID ANDREW Administration Spironolactone 50 mg 02/12/18 22:00 02/12/18 21:31 Aldactone - PO 50 mg BID ANDREW Administration Thiamine HCl 100 mg 02/12/18 10:00 02/12/18 09:39 Vitamin B1 - PO 100 mg DAILY ANDREW Administration Thiamine HCl 100 mg 02/12/18 22:00 02/12/18 21:31 Vitamin B1 - PO 100 mg HS ANDREW Administration ASSESSMENT/PLAN: 1) Decompensated liver failure --GI on board: Dr. Del Real --Awaiting IR US paracentesis: --Fluid culture and gram stain --Cell count --Albumin --Gram stain and culture --Total protein --Continue Aldactone 25mg PO qDaily --Continue Lasix 40mg PO qDaily --Continue Lactulose 20gm TID PO and Rifaximine 550mg PO BID 2) Suspected esophageal varices --Discussed with Dr. Del Real --CTA showing prominent esophageal and gastric varices --EGD can be done on outpatient if needed; no active bleeding evident 3) Abdominal pain --Morphine 1mg IVP ordered --Most likely cramping from Lactulose 4) Thrombocytopenia --Monitor for signs of bleeding 5) Macrocytic anemia --Most likely due to lack of intrinsic factor from liver failure --Continue Thiamine 100mg PO qdaily --Continue Folic Acid 1mg PO qDaily 6) Hypothyroidism --Continue home 100mcg PO qDaily FEN Fluids: none indicated Electrolyte abnormalities: Hypokalemic again today (repleted Kdur 40mEq; redraw 1500h); HypoMg (Mg 2gm IV) Nutrition: sodium controlled diet after paracentesis PPX: DVT - SCDs only due to thrombocytopenia GI - Protonix 40mg IV daily Dispo: Paracentesis today; continue m/s monitoring Case discussed with Dr. Sky Garcia, DO - IM PGY-1 Visit type - Emergency Visit Emergency Visit: No - New Patient This patient is new to me today: No - Critical Care Critical Care patient: No
[2018-02-13 09:32] LABS: ALBUMIN 2.5 g/dl (3.4-5.0); ANION GAP 12 (8-16); BILIRUBIN,DIRECT 2.4 mg/dL (0.0-0.2); CHLORIDE 95 mmol/L (98-107); CO2 29 mmol/L (21-32); CREATININE 0.6 mg/dL (0.55-1.02); GLUCOSE,RANDOM 89 mg/dL (74-106); MAGNESIUM 1.1 mg/dL (1.8-2.4); PHOSPHOROUS 2.7 mg/dL (2.5-4.9); SGOT/AST 82 U/L (15-37); SGPT/ALT 15 U/L (12-78); SODIUM 136 mmol/L (136-145)
[2018-02-13 09:33] LABS: ALK PHOS 104 U/L (45-117); BILIRUBIN,TOTAL 4.3 mg/dL (0.2-1.0); BLOOD UREA NITROGEN 3 mg/dL (7-18); TOT PROT 6.2 g/dl (6.4-8.2)
[2018-02-13] MEDS: FOLIC ACID 1 MG TABLET (FP) PO SCH (09:41)
[2018-02-13] MEDS: FLUoxetine HCL 20 MG CAPSULE (FP) PO SCH (09:41)
[2018-02-13] MEDS: FUROSEMIDE 40 MG TABLET (FP) PO SCH (09:41)
[2018-02-13] MEDS: SPIRONOLACTONE 25 MG TABLET (FP) PO SCH ×2 (09:44→21:42)
[2018-02-13] MEDS: THIAMINE HCL 100 MG TABLET (FP) PO SCH ×2 (09:44→21:42)
[2018-02-13] MEDS: RIFAXIMIN 550 MG TABLET (UD) PO SCH ×2 (09:45→21:42)
[2018-02-13] MEDS: PANTOPRAZOLE 40 MG TABLET (FP) PO SCH (09:45)
[2018-02-13] MEDS: PRENATAL VITAMINS W/ FOLIC ACID TABLET (FP) PO SCH (09:45)
[2018-02-13] MEDS: CEFTRIAXONE 1 GM in DEXTROSE 5%-WATER - 50 ML IVPB SCH (09:46)
[2018-02-13 10:04] LABS: CALCIUM 6.9 mg/dL (8.5-10.1); POTASSIUM 2.9 mmol/L (3.5-5.1)
[2018-02-13] MEDS ORDERED: POTASSIUM CHLORIDE TABS 20 MEQ TABLET.ER (FP) PO ONE ×2 (11:30→17:40)
[2018-02-13] MEDS ORDERED: MAGNESIUM 2GM/50ML STERILE WATER IVPB IVPB ONE (11:30)
[2018-02-13] MEDS ORDERED: CALCIUM GLUCONATE 10% - 1,000 MG/10 ML VIAL IVPB ONE (11:30)
[2018-02-13 12:43] LABS: ACETAMINOPHEN <10 ug/mL
[2018-02-13 12:48] LABS: PERITONEAL RBC 262 /mm3
[2018-02-13 12:49] LABS: TOTAL PROTEIN,PERITONEAL FLUID 2 gm/dL
[2018-02-13 13:34] LABS: PERITONEAL FLUID LYMPHOCYTE 20 %; PERITONEAL FLUID MACROPHAGE 61 %; PERITONEAL FLUID MONOCYTE 15 %; PERITONEAL FLUID NEUTROPHIL 4 %
[2018-02-13 14:17] LABS: HEP.C VIRUS AB <0.1 s/co ratio (0.0-0.9)
[2018-02-13 15:01] VITALS: BMI 27.4
[2018-02-13] MEDS ORDERED: KCL 10 MEQ IVPB 10 MEQ/100 ML INFUS.BAG IVPB SCH (17:45)
[2018-02-13] MEDS ORDERED: POTASSIUM CHLORIDE 30 MEQ in SODIUM CHLORIDE 300 ML IVPB ONE (18:30)
[2018-02-13] MEDS ORDERED: morphine SULFATE 4 MG/ML VIAL IVPUSH ONE (23:00)
[2018-02-14] MEDS: LEVOTHYROXINE NA 100 MCG TABLET (FP) PO SCH (06:00)
[2018-02-14] MEDS: LACTULOSE 20 GM/30 ML UDC (FOR ORAL USE ONLY) PO SCH ×3 (06:00→21:51)
[2018-02-14 08:05] LABS: HEMATOCRIT 27.8 % (32.4-45.2); HEMOGLOBIN 9.6 GM/dL (10.7-15.3); MCH 37.6 pg (25.7-33.7); MCHC 34.5 g/dl (32.0-36.0); MEAN CELL VOLUME 108.8 fl (80-96); MEAN PLT VOLUME 10.1 fl (7.5-11.1); PLATELET COUNT 52 K/MM3 (134-434); RBC 2.56 M/mm3 (3.60-5.2); RDW 18.6 % (11.6-15.6); WHITE BLOOD COUNT 2.3 K/mm3 (4.0-10.0)
[2018-02-14 08:30] LABS: CHLORIDE 97 mmol/L (98-107); POTASSIUM 3.6 mmol/L (3.5-5.1); SODIUM 138 mmol/L (136-145)
[2018-02-14 08:58] LABS: ALBUMIN 2.6 g/dl (3.4-5.0); ALK PHOS 102 U/L (45-117); ANION GAP 12 (8-16); BILIRUBIN,TOTAL 3.8 mg/dL (0.2-1.0); CO2 29 mmol/L (21-32); CREATININE 0.6 mg/dL (0.55-1.02); GLUCOSE,RANDOM 76 mg/dL (74-106); MAGNESIUM 1.2 mg/dL (1.8-2.4); PHOSPHOROUS 2.6 mg/dL (2.5-4.9); SGOT/AST 75 U/L (15-37); SGPT/ALT 16 U/L (12-78); TOT PROT 6.6 g/dl (6.4-8.2)
[2018-02-14 09:27] LABS: BLOOD UREA NITROGEN 2 mg/dL (7-18)
[2018-02-14] MEDS ORDERED: cefTRIAXone SODIUM 1 GM VIAL ONE (09:49)
[2018-02-14] MEDS ORDERED: PT OWN MED DRAWER 7, Y5N ONE (09:49)
[2018-02-14] MEDS ORDERED: DEXTROSE 5%-WATER - 50 ML IVPB ONE (09:50)
[2018-02-14] MEDS: PANTOPRAZOLE 40 MG TABLET (FP) PO SCH ×2 (09:56→21:52)
[2018-02-14] MEDS: SPIRONOLACTONE 25 MG TABLET (FP) PO SCH ×2 (09:56→21:52)
[2018-02-14] MEDS: THIAMINE HCL 100 MG TABLET (FP) PO SCH ×2 (09:56→21:52)
[2018-02-14] MEDS: FUROSEMIDE 40 MG TABLET (FP) PO SCH (09:57)
[2018-02-14] MEDS: CEFTRIAXONE 1 GM in DEXTROSE 5%-WATER - 50 ML IVPB SCH (09:57)
[2018-02-14] MEDS: RIFAXIMIN 550 MG TABLET (UD) PO SCH ×2 (09:57→21:51)
[2018-02-14] MEDS: FLUoxetine HCL 20 MG CAPSULE (FP) PO SCH (09:57)
[2018-02-14] MEDS: FOLIC ACID 1 MG TABLET (FP) PO SCH (09:57)
[2018-02-14] MEDS: PRENATAL VITAMINS W/ FOLIC ACID TABLET (FP) PO SCH (09:57)
[2018-02-14] MEDS ORDERED: LORazepam 0.5 MG TABLET PO PRN (12:12)
--- NOTE | 2018-02-14 14:37 | PN ---
Progress Note (short form) - Note Progress Note: Patient is comfortable with no acute distress, having cramps less than before. Vital Signs Temperature 98.6 F 02/14/18 06:00 Pulse Rate 112 H 02/14/18 06:00 Respiratory Rate 20 02/14/18 06:00 Blood Pressure 128/64 02/14/18 06:00 O2 Sat by Pulse Oximetry (%) 98 02/14/18 09:00 GENERAL: A&Ox3, no acute distress, EYES: PERRLA, PERRLA , no nystagmus noted in both eyes, scleral icteric less than before. ENT: Moist mucus membranes NECK: No JVD LUNGS: CTA, no wheezes HEART: mildly tachycardia, no murmurs ABDOMEN: less distended now since had paracentesisi done , bowel sounds present , soft, nt positive hepatomegaly MUSCULOSKELETAL: No CVA Tenderness EXTREMITIES: 2+ pulses, 1+ peripheral edema noted, c/o having Lipoma of right knee area NEUROLOGICAL: Cranial nerves II-XII grossly intact. CBCD WBC 2.3 K/mm3 (4.0-10.0) L 02/14/18 06:15 RBC 2.56 M/mm3 (3.60-5.2) L 02/14/18 06:15 Hgb 9.6 GM/dL (10.7-15.3) L 02/14/18 06:15 Hct 27.8 % (32.4-45.2) L 02/14/18 06:15 MCV 108.8 fl (80-96) H 02/14/18 06:15 MCHC 34.5 g/dl (32.0-36.0) 02/14/18 06:15 RDW 18.6 % (11.6-15.6) H 02/14/18 06:15 Plt Count 52 K/MM3 (134-434) L 02/14/18 06:15 MPV 10.1 fl (7.5-11.1) 02/14/18 06:15 CMP Sodium 138 mmol/L (136-145) 02/14/18 06:15 Potassium 3.6 mmol/L (3.5-5.1) 02/14/18 06:15 Chloride 97 mmol/L (98-107) L 02/14/18 06:15 Carbon Dioxide 29 mmol/L (21-32) 02/14/18 06:15 Anion Gap 12 (8-16) 02/14/18 06:15 BUN 2 mg/dL (7-18) L* 02/14/18 06:15 Creatinine 0.6 mg/dL (0.55-1.02) 02/14/18 06:15 Creat Clearance w eGFR > 60 (>60) 02/14/18 06:15 Random Glucose 76 mg/dL (74-106) 02/14/18 06:15 Calcium 7.0 mg/dL (8.5-10.1) L 02/14/18 06:15 Total Bilirubin 3.8 mg/dL (0.2-1.0) H 02/14/18 06:15 AST 75 U/L (15-37) H 02/14/18 06:15 ALT 16 U/L (12-78) 02/14/18 06:15 Alkaline Phosphatase 102 U/L (45-117) 02/14/18 06:15 Total Protein 6.6 g/dl (6.4-8.2) 02/14/18 06:15 Albumin 2.6 g/dl (3.4-5.0) L 02/14/18 06:15 CARDIAC ENZYMES Creatine Kinase 200 IU/L (26-192) H 02/11/18 23:19 Troponin I < 0.02 ng/ml (0.00-0.05) 02/11/18 23:19 Current Medications Generic Name Dose Route Start Last Admin Trade Name Sarwat PRN Reason Stop Dose Admin Fluoxetine HCl 20 mg 02/12/18 10:00 02/14/18 09:57 Prozac - PO 20 mg DAILY ANDREW Administration Folic Acid 1 mg 02/12/18 10:00 02/14/18 09:57 Folic Acid - PO 1 mg DAILY ANDREW Administration Furosemide 40 mg 02/12/18 10:00 02/14/18 09:57 Lasix - PO 40 mg DAILY ANDREW Administration Ceftriaxone Sodium 1 gm/ 50 mls @ 100 mls/hr 02/12/18 10:00 02/14/18 09:57 Dextrose IVPB 100 mls/hr DAILY ANDREW Administration Protocol Lactulose 20 gm 02/12/18 22:00 02/14/18 14:24 Cephulac (Oral Use) PO Not Given TID ANDREW Levothyroxine Sodium 100 mcg 02/12/18 07:00 02/14/18 06:00 Synthroid - PO 100 mcg DAILY@0700 ANDREW Administration Lorazepam 0.5 mg 02/14/18 12:12 02/14/18 12:19 Ativan - PO 0.5 mg BID PRN Administration ANXIETY Pantoprazole Sodium 40 mg 02/12/18 10:00 02/14/18 09:56 Protonix - PO 40 mg DAILY ANDREW Administration Multivit/Folic Acid/Iron 1 tab 02/13/18 10:00 02/14/18 09:57 Vitamins (Sjr) - PO 1 tab DAILY ANDREW Administration Rifaximin 550 mg 02/12/18 22:00 02/14/18 09:57 Xifaxan - PO 550 mg BID ANDREW Administration Spironolactone 50 mg 02/12/18 22:00 02/14/18 09:56 Aldactone - PO 50 mg BID ANDREW Administration Thiamine HCl 100 mg 02/12/18 10:00 02/14/18 09:56 Vitamin B1 - PO 100 mg DAILY ANDREW Administration Thiamine HCl 100 mg 02/12/18 22:00 02/13/18 21:42 Vitamin B1 - PO 100 mg HS ANDREW Administration Home Medications Medication Instructions Recorded Fluoxetine HCl 20 mg PO DAILY capsule 04/03/17 Levothyroxine [Synthroid -] 100 mcg PO DAILY 01/08/18 Pantoprazole Sodium [Protonix -] 40 mg PO DAILY #30 tablet.ec 02/09/18 Laboratory Tests 03/17/16 03/17/16 03/17/16 16:50 17:00 17:02 Hgb Plt Count INR Sodium 134 L Potassium 3.5 BUN < 5 L Lactic Acid 3.326 H* 3.708 H* Magnesium Troponin I Ammonia 03/17/16 03/18/16 03/18/16 17:02 07:00 07:00 Hgb Plt Count INR Sodium 143 Potassium 3.9 BUN 3 L Lactic Acid 2.062 H* Magnesium Troponin I < 0.03 L Ammonia 02/11/18 02/11/18 02/12/18 14:18 14:18 08:10 Hgb 10.3 L D 10.1 L Plt Count 107 L D 76 L D INR 1.44 H D Sodium Potassium BUN Lactic Acid Magnesium Troponin I Ammonia 02/12/18 02/13/18 02/13/18 08:10 07:45 07:45 Hgb 9.3 L Plt Count 51 L D INR 1.50 H 1.71 H Sodium Potassium BUN Lactic Acid Magnesium Troponin I Ammonia 02/13/18 02/14/18 02/14/18 07:45 06:15 06:15 Hgb 9.6 L Plt Count 52 L INR Sodium Potassium BUN Lactic Acid Magnesium 1.2 L Troponin I Ammonia 58.95 H 02/14/18 06:15 Hgb Plt Count INR Sodium Potassium BUN Lactic Acid Magnesium Troponin I Ammonia 69.94 H EXAM#: TYPE/EXAM: RESULT: [id number] CT/ABDOMEN PELVIS CT WITH CONTR Abdominal pain CT scan of the abdomen and pelvis following intravenous contrast. Coronal and sagittal reformatted images were obtained 100 cc of Omnipaque 350 was intravenously injected Comparison: None available Visualized lung base appears unremarkable and the heart is within normal limits in size. The liver is within normal limits in size and likely nodular margin. The spleen is within normal limits in size and attenuation. Partially distended stomach significantly limiting evaluation of its wall. However, there is suggestion of thickening of the gastric antrum wall. The gallbladder is slightly over distended without intraluminal stones or wall thickening. Normal-appearing appendix. Both adrenal glands and both kidneys appear unremarkable there is dilatation and thickening of the proximal jejunal loops. There is a large amount of ascites in the abdomen and pelvis. There is no evidence of small bowel obstruction. Evaluation of the colon is quite limited due to lack of oral contrast. The colon is essentially collapsed with suggestion of diffuse thickening of its wall except for relative sparing of the mid and distal sigmoid colon wall. Urinary bladder is partially distended without wall thickening. Normal size uterus with a partially exophytic calcified fibroid measuring 1.5 cm. Visualized osseous structures appear intact with moderate to marked degenerative disc disease at L3 -L4 level. CXR:: [id number] EXAM#: TYPE/EXAM: RESULT: [id number] RAD/CHEST X-RAY PORTABLE * HISTORY PROVIDED: Pulmonary evaluation. A single frontal portable projection of the chest at 2:28 PM is submitted. The heart size is within normal limits. The lung whipple are free of pulmonary infiltrates or pleural effusions. IMPRESSION: No acute disease. CTA report reviewed: reported subacute rib fx -9 ASSESSMENT AND PLAN: 52 year old female with a hx of HTN, HLD, hypothyroidism, pancreatitis, GERD presented to the hospital for severe abdominal pain and found to have decompensated liver cirrhosis likely chronic alcoholism #Decompensated Liver Cirrhosis: s/p paracentesis by IR, feels better now. GI consult appreciated for EGD for varices surveillance; HIV + Hep B/C tests ordered. , fall precautions, On Rocephin IV 1gm daily for possible SBP continue .2gm sodium diet after possible EGD. meld score 17 #Chronic Alcoholism:alcohol aBSTINENCE, CONTINUE FOLIC ACID/THIAMINE . #R/O Mesenteric Ischemia - Ordered CTA abd to r/o mesenteric ischemia but patient recently had contrast and was unable to be performed #Hypokalemia: K 3.6 today monitor #Hypomagnesemia: replete as needed , give 2gm mag, repLete mag NEEDED. 2gm today #Hypothyroidism continue synthroid 100mcg daily #Depression/Anxiety continue fluoxetine 20mg PO daily #dvt PX: HOLD HEPARIN SINCE HER Platelets are in 50s now, monitor for bleeding Low sodium diet. Discussed with the patient. Visit type - Emergency Visit Emergency Visit: Yes ED Registration Date: 02/11/18 Care time: The patient presented to the Emergency Department on the above date and was hospitalized for further evaluation of their emergent condition. - New Patient This patient is new to me today: No - Critical Care Critical Care patient: No - Discharge Referral Referred to [facility] No
[2018-02-14] MEDS: MAGNESIUM SULF 50% (8.12 MEQ/2 ML-1 GM VIAL) IVPB SCH ×2 (16:30→17:47)
[2018-02-14] MEDS: ALPRAZolam 0.25 MG TABLET PO PRN (17:04)
[2018-02-15] MEDS: ALPRAZolam 0.25 MG TABLET PO PRN ×3 (00:20→18:31)
[2018-02-15] MEDS: LEVOTHYROXINE NA 100 MCG TABLET (FP) PO SCH (06:08)
[2018-02-15] MEDS: LACTULOSE 20 GM/30 ML UDC (FOR ORAL USE ONLY) PO SCH ×3 (06:08→21:03)
--- NOTE | 2018-02-15 07:59 | PN ---
Addendum entered and electronically signed by Lenny Garcia, RESIDENT 02/15/18 10:48: ADDENDUM: Per peritoneal fluid analysis not likely any SBP present; peritoneal fluid culture and gram stain negative for growth currently --> discontinuing Rocephin 1gm Original Note: <Lenny Garcia - Last Filed: 02/15/18 10:39> Physical Exam: SUBJECTIVE: Pt endorses some nausea and heart burn currently. She also reports feeling slightly better after her thoracentesis. She denies any shortness of breath, palpitations, jaw claudication, difficulties with bowel movements and urinating. OBJECTIVE: Vital Signs Period Temp Pulse Resp BP Sys/Packer Pulse Ox Last 24 Hr 97.8 F-98.5 F 109-113 18-18 129-134/74-77 98-98 GENERAL: NAD, awake, alert, and fully oriented HEENT: EOMI, LYLA, sclera anicteric, slightly jaundiced oral mucosa with moist mucosa Neck: No JVD LUNGS: CTA bilaterally, no wheezes, no crackles, no accessory muscle use. HEART: RRR, S1, S2 without murmur ABDOMEN: Soft, NT/ND, normoactive bowel sounds, no guarding, no hepatomegaly EXTREMITIES: 2+ DP pulses, well-perfused, no edema. PSYCH: Normal mood, normal affect. SKIN: Warm, dry, jaundiced skin, no rashes or lesions noted Laboratory Results - last 24 hr 02/14/18 02/14/18 02/14/18 06:15 06:15 06:15 WBC 2.3 L RBC 2.56 L Hgb 9.6 L Hct 27.8 L MCV 108.8 H MCH 37.6 H MCHC 34.5 RDW 18.6 H Plt Count 52 L MPV 10.1 Sodium 138 Potassium 3.6 Chloride 97 L Carbon Dioxide 29 Anion Gap 12 BUN 2 L* Creatinine 0.6 Creat Clearance w eGFR > 60 Random Glucose 76 Calcium 7.0 L Phosphorus 2.6 Magnesium 1.2 L Total Bilirubin 3.8 H AST 75 H ALT 16 Alkaline Phosphatase 102 Ammonia 69.94 H Total Protein 6.6 Albumin 2.6 L Active Medications Generic Name Dose Route Start Last Admin Trade Name Freq PRN Reason Stop Dose Admin Alprazolam 0.5 mg 02/14/18 14:55 02/15/18 07:28 Xanax - PO 0.5 mg Q8H PRN Administration ANXIETY Fluoxetine HCl 20 mg 02/12/18 10:00 02/14/18 09:57 Prozac - PO 20 mg DAILY ANDREW Administration Folic Acid 1 mg 02/12/18 10:00 02/14/18 09:57 Folic Acid - PO 1 mg DAILY ANDREW Administration Furosemide 40 mg 02/12/18 10:00 02/14/18 09:57 Lasix - PO 40 mg DAILY ANDREW Administration Ceftriaxone Sodium 1 gm/ 50 mls @ 100 mls/hr 02/12/18 10:00 02/14/18 09:57 Dextrose IVPB 100 mls/hr DAILY ANDREW Administration Protocol Lactulose 20 gm 02/12/18 22:00 02/15/18 06:08 Cephulac (Oral Use) PO 20 gm TID ANDREW Administration Levothyroxine Sodium 100 mcg 02/12/18 07:00 02/15/18 06:08 Synthroid - PO 100 mcg DAILY@0700 ANDREW Administration Morphine Sulfate 2 mg 02/15/18 07:57 Morphine Injection - IVPUSH 02/15/18 07:58 ONCE ONE Pantoprazole Sodium 40 mg 02/14/18 22:00 02/14/18 21:52 Protonix - PO 40 mg BID ANDREW Administration Multivit/Folic Acid/Iron 1 tab 02/13/18 10:00 02/14/18 09:57 Vitamins (Sjr) - PO 1 tab DAILY ANDREW Administration Ranitidine HCl 300 mg 02/15/18 08:00 Zantac - PO 02/15/18 08:01 ONCE ONE Rifaximin 550 mg 02/12/18 22:00 02/14/18 21:51 Xifaxan - PO 550 mg BID ANDREW Administration Spironolactone 50 mg 02/12/18 22:00 02/14/18 21:52 Aldactone - PO 50 mg BID ANDREW Administration Thiamine HCl 100 mg 02/12/18 22:00 02/14/18 21:52 Vitamin B1 - PO 100 mg HS ANDREW Administration ASSESSMENT/PLAN: 1) Decompensated liver failure --Continue Rifaximin 550mg BID PO --Continue Aldactone 25mg PO --Continue Lasix 40mg PO --Pt underwent paracentesis with SAAG of 1.5 (likelihood of portal htn as cause of ascites with 97% accuracy) --GI on board: Dr. 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 proper absorption of b12 FEN Fluids: none indicated Electrolyte abnormalities: Hypokalemic; (40 Kdur now and at 2200) other labs pending will replete as necessary Nutrition: sodium controlled diet PPX: DVT - SCDs only (holding heparin sq due to thrombocytopenia) GI - Protonix 40mg IV daily Dispo: continue monitoring; pending ammonia lvl and labs; if pt remains may have chance to due EGD while inpatient Case discussed with Dr. Sky Garcia, DO - IM PGY-1 Visit type - Emergency Visit Emergency Visit: No - New Patient This patient is new to me today: No - Critical Care Critical Care patient: No <Tino Swanson - Last Filed: 02/15/18 14:12> Physical Exam: PATIENT CONTINUES To complain about having cramps. Will get lactulos decreased today , will continue rest of meds as is. will replete the potassium and add 20meq daily potassium. Vital Signs Temperature 98.5 F 02/15/18 06:00 Pulse Rate 113 H 02/15/18 06:00 Respiratory Rate 18 02/15/18 06:00 Blood Pressure 129/74 02/15/18 06:00 O2 Sat by Pulse Oximetry (%) 98 02/14/18 21:00 CBCD WBC 2.7 K/mm3 (4.0-10.0) L 02/15/18 08:34 RBC 2.94 M/mm3 (3.60-5.2) L 02/15/18 08:34 Hgb 11.0 GM/dL (10.7-15.3) D 02/15/18 08:34 Hct 32.2 % (32.4-45.2) L D 02/15/18 08:34 MCV 109.7 fl (80-96) H 02/15/18 08:34 MCHC 34.0 g/dl (32.0-36.0) 02/15/18 08:34 RDW 19.1 % (11.6-15.6) H 02/15/18 08:34 Plt Count 74 K/MM3 (134-434) L D 02/15/18 08:34 MPV 10.5 fl (7.5-11.1) 02/15/18 08:34 CMP Sodium 136 mmol/L (136-145) 02/15/18 08:34 Potassium 3.0 mmol/L (3.5-5.1) L 02/15/18 08:34 Chloride 95 mmol/L (98-107) L 02/15/18 08:34 Carbon Dioxide 27 mmol/L (21-32) 02/15/18 08:34 Anion Gap 14 (8-16) 02/15/18 08:34 BUN 2 mg/dL (7-18) L* 02/15/18 08:34 Creatinine 0.7 mg/dL (0.55-1.02) 02/15/18 08:34 Creat Clearance w eGFR > 60 (>60) 02/15/18 08:34 Random Glucose 115 mg/dL (74-106) H 02/15/18 08:34 Calcium 7.7 mg/dL (8.5-10.1) L 02/15/18 08:34 Total Bilirubin 3.4 mg/dL (0.2-1.0) H 02/15/18 08:34 AST 96 U/L (15-37) H 02/15/18 08:34 ALT 20 U/L (12-78) 02/15/18 08:34 Alkaline Phosphatase 144 U/L (45-117) H 02/15/18 08:34 Total Protein 7.4 g/dl (6.4-8.2) 02/15/18 08:34 Albumin 2.9 g/dl (3.4-5.0) L 02/15/18 08:34 CARDIAC ENZYMES Creatine Kinase 200 IU/L (26-192) H 02/11/18 23:19 Troponin I < 0.02 ng/ml (0.00-0.05) 02/11/18 23:19 Current Medications Generic Name Dose Route Start Last Admin Trade Name Bonifacioq PRN Reason Stop Dose Admin Alprazolam 0.5 mg 02/14/18 14:55 02/15/18 07:28 Xanax - PO 0.5 mg Q8H PRN Administration ANXIETY Cyanocobalamin 1,000 mcg 02/15/18 10:30 02/15/18 10:37 Vitamin B12 - PO 1,000 mcg DAILY ANDREW Administration Fluoxetine HCl 20 mg 02/12/18 10:00 02/15/18 09:07 Prozac - PO 20 mg DAILY ANDREW Administration Folic Acid 1 mg 02/12/18 10:00 02/15/18 09:06 Folic Acid - PO 1 mg DAILY ANDREW Administration Furosemide 40 mg 02/12/18 10:00 02/15/18 09:06 Lasix - PO 40 mg DAILY ANDREW Administration Lactulose 20 gm 02/15/18 22:00 Cephulac (Oral Use) PO BID ANDREW Levothyroxine Sodium 100 mcg 02/12/18 07:00 02/15/18 06:08 Synthroid - PO 100 mcg DAILY@0700 ANDREW Administration Pantoprazole Sodium 40 mg 02/14/18 22:00 02/15/18 09:06 Protonix - PO 40 mg BID ANDREW Administration Potassium Chloride 40 meq 02/15/18 22:00 K-Dur - PO 02/15/18 22:01 ONCE ONE Potassium Chloride 20 meq 02/16/18 10:00 K-Dur - PO 02/18/18 09:59 DAILY ANDREW Multivit/Folic Acid/Iron 1 tab 02/13/18 10:00 02/15/18 09:06 Vitamins (Sjr) - PO 1 tab DAILY ANDREW Administration Rifaximin 550 mg 02/12/18 22:00 02/15/18 09:06 Xifaxan - PO 550 mg BID ANDREW Administration Spironolactone 50 mg 02/12/18 22:00 02/15/18 09:06 Aldactone - PO 50 mg BID ANDREW Administration Thiamine HCl 100 mg 02/12/18 22:00 02/14/18 21:52 Vitamin B1 - PO 100 mg HS [facility] Administration Home Medications Medication Instructions Recorded Fluoxetine HCl 20 mg PO DAILY capsule 04/03/17 Levothyroxine [Synthroid -] 100 mcg PO DAILY 01/08/18 Pantoprazole Sodium [Protonix -] 40 mg PO DAILY #30 tablet.ec 02/09/18
[2018-02-15] MEDS ORDERED: morphine SULFATE 4 MG/ML VIAL IVPUSH ONE (08:00)
[2018-02-15] MEDS ORDERED: RANITIDINE HCL 150 MG TABLET (FP) PO ONE (08:00)
[2018-02-15] MEDS ORDERED: PT OWN MED DRAWER 7, Y5N ONE (09:01)
[2018-02-15] MEDS ORDERED: cefTRIAXone SODIUM 1 GM VIAL ONE (09:01)
[2018-02-15] MEDS ORDERED: DEXTROSE 5%-WATER - 50 ML IVPB ONE (09:01)
[2018-02-15] MEDS: CEFTRIAXONE 1 GM in DEXTROSE 5%-WATER - 50 ML IVPB SCH (09:05)
[2018-02-15] MEDS: PANTOPRAZOLE 40 MG TABLET (FP) PO SCH ×2 (09:06→21:04)
[2018-02-15] MEDS: FUROSEMIDE 40 MG TABLET (FP) PO SCH (09:06)
[2018-02-15] MEDS: SPIRONOLACTONE 25 MG TABLET (FP) PO SCH ×2 (09:06→21:04)
[2018-02-15] MEDS: RIFAXIMIN 550 MG TABLET (UD) PO SCH ×2 (09:06→21:04)
[2018-02-15] MEDS: PRENATAL VITAMINS W/ FOLIC ACID TABLET (FP) PO SCH (09:06)
[2018-02-15] MEDS: FOLIC ACID 1 MG TABLET (FP) PO SCH (09:06)
[2018-02-15] MEDS: FLUoxetine HCL 20 MG CAPSULE (FP) PO SCH (09:07)
[2018-02-15 10:07] LABS: HEMATOCRIT 32.2 % (32.4-45.2); MCH 37.3 pg (25.7-33.7); MEAN CELL VOLUME 109.7 fl (80-96); MEAN PLT VOLUME 10.5 fl (7.5-11.1); PLATELET COUNT 74 K/MM3 (134-434); RBC 2.94 M/mm3 (3.60-5.2); RDW 19.1 % (11.6-15.6); WHITE BLOOD COUNT 2.7 K/mm3 (4.0-10.0)
[2018-02-15 10:32] LABS: CHLORIDE 95 mmol/L (98-107); SODIUM 136 mmol/L (136-145)
[2018-02-15] MEDS ORDERED: POTASSIUM CHLORIDE TABS 20 MEQ TABLET.ER (FP) PO ONE ×2 (10:37→22:00)
[2018-02-15] MEDS: CYANOCOBALAMIN 1,000 MCG TABLET (FP) PO SCH (10:37)
[2018-02-15 10:47] LABS: ALBUMIN 2.9 g/dl (3.4-5.0); ALK PHOS 144 U/L (45-117); ANION GAP 14 (8-16); BILIRUBIN,TOTAL 3.4 mg/dL (0.2-1.0); CALCIUM 7.7 mg/dL (8.5-10.1); CO2 27 mmol/L (21-32); CREATININE 0.7 mg/dL (0.55-1.02); GLUCOSE,RANDOM 115 mg/dL (74-106); MAGNESIUM 1.3 mg/dL (1.8-2.4); SGOT/AST 96 U/L (15-37); SGPT/ALT 20 U/L (12-78); TOT PROT 7.4 g/dl (6.4-8.2)
[2018-02-15 10:50] LABS: BLOOD UREA NITROGEN 2 mg/dL (7-18)
[2018-02-15] MEDS ORDERED: MAGNESIUM SULF 50% (8.12 MEQ/2 ML-1 GM VIAL) IVPB ONE (13:30)
[2018-02-15] MEDS: THIAMINE HCL 100 MG TABLET (FP) PO SCH (21:04)
[2018-02-16] MEDS: ALPRAZolam 0.25 MG TABLET PO PRN ×2 (02:15→09:33)
[2018-02-16 06:16] VITALS: BP 123/69; PULSE 94; TEMP 98.3
[2018-02-16] MEDS: LEVOTHYROXINE NA 100 MCG TABLET (FP) PO SCH (06:18)
[2018-02-16 07:12] LABS: HEMATOCRIT 27.8 % (32.4-45.2); HEMOGLOBIN 9.7 GM/dL (10.7-15.3); MCH 38.1 pg (25.7-33.7); MCHC 34.8 g/dl (32.0-36.0); MEAN CELL VOLUME 109.6 fl (80-96); MEAN PLT VOLUME 9.7 fl (7.5-11.1); PLATELET COUNT 53 K/MM3 (134-434); RBC 2.53 M/mm3 (3.60-5.2); RDW 18.6 % (11.6-15.6); WHITE BLOOD COUNT 2.3 K/mm3 (4.0-10.0)
[2018-02-16 07:55] LABS: ALBUMIN 2.5 g/dl (3.4-5.0); ANION GAP 8 (8-16); BLOOD UREA NITROGEN 4 mg/dL (7-18); CHLORIDE 101 mmol/L (98-107); CO2 30 mmol/L (21-32); GLUCOSE,RANDOM 94 mg/dL (74-106); POTASSIUM 3.6 mmol/L (3.5-5.1); SGOT/AST 74 U/L (15-37); SGPT/ALT 16 U/L (12-78); SODIUM 139 mmol/L (136-145)
[2018-02-16 07:57] LABS: ALK PHOS 114 U/L (45-117); BILIRUBIN,TOTAL 2.9 mg/dL (0.2-1.0); CALCIUM 7.6 mg/dL (8.5-10.1); CREATININE 0.7 mg/dL (0.55-1.02); MAGNESIUM 1.5 mg/dL (1.8-2.4); TOT PROT 6.2 g/dl (6.4-8.2)
[2018-02-16] MEDS ORDERED: PT OWN MED DRAWER 7, Y5N ONE (09:31)
[2018-02-16] MEDS: SPIRONOLACTONE 25 MG TABLET (FP) PO SCH (09:33)
[2018-02-16] MEDS: RIFAXIMIN 550 MG TABLET (UD) PO SCH (09:33)
[2018-02-16] MEDS: FOLIC ACID 1 MG TABLET (FP) PO SCH (09:33)
[2018-02-16] MEDS: FUROSEMIDE 40 MG TABLET (FP) PO SCH (09:33)
[2018-02-16] MEDS: PRENATAL VITAMINS W/ FOLIC ACID TABLET (FP) PO SCH (09:33)
[2018-02-16] MEDS: CYANOCOBALAMIN 1,000 MCG TABLET (FP) PO SCH (09:33)
[2018-02-16] MEDS: PANTOPRAZOLE 40 MG TABLET (FP) PO SCH (09:33)
[2018-02-16] MEDS: LACTULOSE 20 GM/30 ML UDC (FOR ORAL USE ONLY) PO SCH (09:33)
[2018-02-16] MEDS: FLUoxetine HCL 20 MG CAPSULE (FP) PO SCH (09:33)
--- NOTE | 2018-02-16 09:51 | DS ---
Physical Exam: SUBJECTIVE: Patient seen and examined OBJECTIVE: Vital Signs Period Temp Pulse Resp BP Sys/Packer Pulse Ox Last 24 Hr 97.7 F-99.1 F 94-114 18-18 123-142/69-89 97 PHYSICAL EXAM GENERAL: The patient is awake, alert, and fully oriented, in no acute distress. HEAD: Normal with no signs of trauma. EYES: PERRL, extraocular movements intact, sclera anicteric, conjunctiva clear. ENT: Ears normal, nares patent, oropharynx clear without exudates, moist mucous membranes. NECK: Trachea midline, full range of motion, supple. LUNGS: Breath sounds equal, clear to auscultation bilaterally, no wheezes, no crackles, no accessory muscle use. HEART: Regular rate and rhythm, S1, S2 without murmur, rub or gallop. ABDOMEN: Soft, nontender, nondistended, normoactive bowel sounds, no guarding, no rebound, no hepatosplenomegaly, no masses. EXTREMITIES: 2+ pulses, warm, well-perfused, no edema. NEUROLOGICAL: Cranial nerves II through XII grossly intact. Normal speech, gait not observed. PSYCH: Normal mood, normal affect. SKIN: Warm, dry, normal turgor, no rashes or lesions noted. LABS Laboratory Results - last 24 hr 02/15/18 02/15/18 02/15/18 08:34 08:34 08:34 WBC 2.7 L RBC 2.94 L Hgb 11.0 D Hct 32.2 L D MCV 109.7 H MCH 37.3 H MCHC 34.0 RDW 19.1 H Plt Count 74 L D MPV 10.5 Sodium 136 Potassium 3.0 L Chloride 95 L Carbon Dioxide 27 Anion Gap 14 BUN 2 L* Creatinine 0.7 Creat Clearance w eGFR > 60 Random Glucose 115 H Calcium 7.7 L Magnesium 1.3 L Total Bilirubin 3.4 H AST 96 H ALT 20 Alkaline Phosphatase 144 H Ammonia 48.93 H Total Protein 7.4 Albumin 2.9 L 02/16/18 02/16/18 02/16/18 05:35 05:35 05:35 WBC 2.3 L RBC 2.53 L Hgb 9.7 L D Hct 27.8 L MCV 109.6 H MCH 38.1 H MCHC 34.8 RDW 18.6 H Plt Count 53 L D MPV 9.7 Sodium 139 Potassium 3.6 Chloride 101 Carbon Dioxide 30 Anion Gap 8 BUN 4 L Creatinine 0.7 Creat Clearance w eGFR > 60 Random Glucose 94 Calcium 7.6 L Magnesium 1.5 L Total Bilirubin 2.9 H AST 74 H ALT 16 Alkaline Phosphatase 114 Ammonia 72.84 H Total Protein 6.2 L Albumin 2.5 L HOSPITAL COURSE: Date of Admission:02/11/18 Date of Discharge: 02/16/18 <Lenny Garcia - Last Filed: 02/16/18 09:51> Physical Exam: Patient is feeling better and wants to go home, feels better but little anxious. As per patient has to go since has an appointment with her disability clinic. discussed with Dr.Kogan chaves to discharge the patient and follow up with him in the clinic. Will send the patient home on Inderal 10mg po tid. Continue her Spironolactone, Lasix and potassium low dose supplement for 7 days. repeat the labs within one week. Vital Signs Temperature 98.3 F 02/16/18 06:00 Pulse Rate 94 H 02/16/18 06:00 Respiratory Rate 18 02/16/18 06:00 Blood Pressure 123/69 02/16/18 06:00 O2 Sat by Pulse Oximetry (%) 97 02/16/18 09:00 CBCD WBC 2.3 K/mm3 (4.0-10.0) L 02/16/18 05:35 RBC 2.53 M/mm3 (3.60-5.2) L 02/16/18 05:35 Hgb 9.7 GM/dL (10.7-15.3) L D 02/16/18 05:35 Hct 27.8 % (32.4-45.2) L 02/16/18 05:35 MCV 109.6 fl (80-96) H 02/16/18 05:35 MCHC 34.8 g/dl (32.0-36.0) 02/16/18 05:35 RDW 18.6 % (11.6-15.6) H 02/16/18 05:35 Plt Count 53 K/MM3 (134-434) L D 02/16/18 05:35 MPV 9.7 fl (7.5-11.1) 02/16/18 05:35 CMP Sodium 139 mmol/L (136-145) 02/16/18 05:35 Potassium 3.6 mmol/L (3.5-5.1) 02/16/18 05:35 Chloride 101 mmol/L (98-107) 02/16/18 05:35 Carbon Dioxide 30 mmol/L (21-32) 02/16/18 05:35 Anion Gap 8 (8-16) 02/16/18 05:35 BUN 4 mg/dL (7-18) L 02/16/18 05:35 Creatinine 0.7 mg/dL (0.55-1.02) 02/16/18 05:35 Creat Clearance w eGFR > 60 (>60) 02/16/18 05:35 Random Glucose 94 mg/dL (74-106) 02/16/18 05:35 Calcium 7.6 mg/dL (8.5-10.1) L 02/16/18 05:35 Total Bilirubin 2.9 mg/dL (0.2-1.0) H 02/16/18 05:35 AST 74 U/L (15-37) H 02/16/18 05:35 ALT 16 U/L (12-78) 02/16/18 05:35 Alkaline Phosphatase 114 U/L (45-117) 02/16/18 05:35 Total Protein 6.2 g/dl (6.4-8.2) L 02/16/18 05:35 Albumin 2.5 g/dl (3.4-5.0) L 02/16/18 05:35 CARDIAC ENZYMES Creatine Kinase 200 IU/L (26-192) H 02/11/18 23:19 Troponin I < 0.02 ng/ml (0.00-0.05) 02/11/18 23:19 Home Medications Medication Instructions Recorded Fluoxetine HCl 20 mg PO DAILY capsule 04/03/17 Levothyroxine [Synthroid -] 100 mcg PO DAILY 01/08/18 Pantoprazole Sodium [Protonix -] 40 mg PO DAILY #30 tablet.ec 02/09/18 Furosemide [Lasix -] 40 mg PO DAILY #30 tablet 02/16/18 Lactulose (Oral Use) [Cephulac -] 20 gm PO BID #60 udc 02/16/18 Potassium Chloride [K-Dur -] 10 meq PO DAILY #7 tablet.er 02/16/18 Rifaximin [Xifaxan -] 550 mg PO BID #60 tablet 02/16/18 Spironolactone [Aldactone] 50 mg PO BID #60 tablet 02/16/18 propRANOLol HCL [Inderal -] 10 mg PO TID #90 tablet 02/16/18 <Tino Swanson - Last Filed: 02/16/18 18:16> Discharge Summary Reason For Visit: ASCITES Current Active Problems Ascites (Acute) Cirrhosis (Acute) - Home Medications Comprehensive Discharge Medication List: Ambulatory Orders Fluoxetine HCl 20 mg PO DAILY capsule 04/03/17 Levothyroxine [Synthroid -] 100 mcg PO DAILY 01/08/18 Pantoprazole Sodium [Protonix -] 40 mg PO DAILY #30 tablet.ec 02/09/18 Furosemide [Lasix -] 40 mg PO DAILY #30 tablet 02/16/18 Lactulose (Oral Use) [Cephulac -] 20 gm PO BID #60 udc 02/16/18 Potassium Chloride [K-Dur -] 10 meq PO DAILY #7 tablet.er 02/16/18 Rifaximin [Xifaxan -] 550 mg PO BID #60 tablet 02/16/18 Spironolactone [Aldactone] 50 mg PO BID #60 tablet 02/16/18 <Lenny Garcia - Last Filed: 02/16/18 09:51> - Home Medications Comprehensive Discharge Medication List: Ambulatory Orders Fluoxetine HCl 20 mg PO DAILY capsule 04/03/17 Levothyroxine [Synthroid -] 100 mcg PO DAILY 01/08/18 Pantoprazole Sodium [Protonix -] 40 mg PO DAILY #30 tablet.ec 02/09/18 Furosemide [Lasix -] 40 mg PO DAILY #30 tablet 02/16/18 Lactulose (Oral Use) [Cephulac -] 20 gm PO BID #60 udc 02/16/18 Potassium Chloride [K-Dur -] 10 meq PO DAILY #7 tablet.er 02/16/18 Rifaximin [Xifaxan -] 550 mg PO BID #60 tablet 02/16/18 Spironolactone [Aldactone] 50 mg PO BID #60 tablet 02/16/18 propRANOLol HCL [Inderal -] 10 mg PO TID #90 tablet 02/16/18 <Tino Swanson - Last Filed: 02/16/18 18:16> Condition: Stable - Instructions Diet, Activity, Other Instructions: You were hospitalized for your liver failure. You were given medications and had a needle take out the fluid from your belly. Based on the fluid this is all from your liver failure and you need long-term medications to control. Medication changes: --You will be given Rifaximine 550mg TWICE daily by mouth Lactulose 20gm TWICE daily by mouth Lasix 40mg ONCE daily by mouth Aldactone 50mg TWICE daily by mouth Potassium 10mEq ONCE daily Propanolol 10mg THREE TIMES DAILY --These have all been sent to your pharmacy --PLEASE TAKE LACTULOSE AND YOUR ALDACTONE AND OTHER PILLS 4 HOURS APART FROM EACH OTHER --It is EXTREMELY important to keep your ammonia levels and fluid from the abdomen out Follow-up: Please follow up with either Dr. Del Real or Dr. Crocker within 2 DAYS!! to evaluate you Please follow-up with Dr. Hutchison within the week --He has to follow your ammonia, liver tests, TSH and potassium levels as well Please refrain from drinking as this can be dangerous to your health and interacts with your medications as well. Eventually you may need to be referred to [facility] for a hepatology center for possible transplant; HOWEVER you need to go to a documented AA to prove you haven't been drinking for 6 months. Referrals: Matti Hutchison MD [Primary Care Provider] - Real Del Real MD [Staff Physician] - Lois Crocker MD [Staff Physician] - Disposition: HOME - Discharge Referral Referred to [facility] No <Lenny Garcia - Last Filed: 02/16/18 09:51>
[2018-02-16] MEDS ORDERED: POTASSIUM CHLORIDE TABS 20 MEQ TABLET.ER (FP) PO SCH (10:00)
--- NOTE | 2018-02-16 16:37 | PATH ---
Cytology Non-Gynecological Report Patient Name: LEVI VILLEGAS [facility]. Rec. #: [id number] /Age/Gender: 1965 (Age: 52) / F Account: [id number] Location: [facility] Taken: 02/13/2018 Received: 02/14/2018 Reported: 02/16/2018 Physicians: Pedro Benavides M.D. Specimen(s) Received A: PERITONEAL FLUID B: PERITONEAL FLUID Clinical History ABS fluid Final Diagnosis ABDOMINAL FLUID, PARACENTESIS: SATISFACTORY FOR EVALUATION BENIGN (NO MALIGNANT CELLS IDENTIFIED) MESOTHELIAL CELLS AND LYMPHOCYTES PRESENT. Electronically Signed Ramya Cagle M.D. Gross Description A. Approximately 50cc of yellow fluid received fixed in 50% alcohol. Two cytofunnels and one cellblock prepared. B. Approximately 1500cc of yellow fluid received fresh. Two cytofunnels and one cellblock prepared.
== END 2018-02-16 10:11 | disposition home or self-care (01) | DRG 264 ==
LOC: JER 13:38 → JERBED 20:09 → J8W 02-12 00:53
PROVIDERS: ADMIT Internal Medicine; ATTEND Internal Medicine
PROC: 0W9G3ZX Drainage of Peritoneal Cavity, Percutaneous Approach, Diagnostic (ICD-10-PCS; principal; 2018-02-13)
DX: K70.31 Alcoholic cirrhosis of liver with ascites (principal); D68.9 Coagulation defect, unspecified; E83.42 Hypomagnesemia; D69.6 Thrombocytopenia, unspecified; E83.51 Hypocalcemia; E87.1 Hypo-osmolality and hyponatremia; R64 Cachexia; E87.2 Acidosis; K21.9 Gastro-esophageal reflux disease without esophagitis; D75.89 Other specified diseases of blood and blood-forming organs; I10 Essential (primary) hypertension; E78.5 Hyperlipidemia, unspecified; F41.9 Anxiety disorder, unspecified; F32.9 Major depressive disorder, single episode, unspecified; E03.9 Hypothyroidism, unspecified; R00.0 Tachycardia, unspecified; E87.6 Hypokalemia; D53.9 Nutritional anemia, unspecified; F10.230 Alcohol dependence with withdrawal, uncomplicated; K72.90 Hepatic failure, unspecified without coma
CPT/HCPCS: 36415; 71045-TC-FY; 74174-TC; 74177-TC; 76705-TC; 76942-TC; 80053; 80074; 80307; 81003; 82042; 82140; 82150; 82248; 82272; 82550; 82553; 82945; 83605; 83615; 83690; 83735; 84100; 84132; 84157; 84478; 84484; 85025; 85027; 85610; 85730; 87040; 87070; 87075; 87102; 87116; 87205; 87206; 87210; 87389; 88108; 88305-TC; 89051; 93005; 93010; 97116-GP; 97161-GP; 99284-25; J1644; J7030

== ENCOUNTER 2018-03-17 12:44 | Emergency (ER) | payer OTHER ==
[2018-03-17 12:51] VITALS: BP 105/66; PULSE 80; TEMP 98.3
[2018-03-17 12:58] VITALS: BMI 22.4
[2018-03-17] MEDS ORDERED: SODIUM CHLORIDE 1,000 ML IV STA (13:41)
--- NOTE | 2018-03-17 13:41 | PDOC ---
History of Present Illness - History of Present Illness Initial Comments: 03/17/18 13:38 52 yo F with h/o Etoh dependence ( with multiple detox admissions, and cirrhosis ), HTN, HLD, hypothyroidisim, pancreatitis, GERD who p/w with abdominal pain. Patient reports 1 month of worsening, diffuse, sharp, stabbing, abdominal pain, with no identifiable triggers or alleviators. Associated with multiple 17-20 loose watery stools per day, and decreased PO intake. Also reports multiple episodes of non bilious, non bloody emesis this month. Patient reports loosing 80 pounds in one year. States that she was in garden and became lightheaded while standing, and fell to ground with LOC for 1-2 minutes. Patient believes she hit her head and reports waking up with L sided frontal LOVING but no skin changes or bleeding. Percocet daily for arthralgias. Recent [facility] admission for cirrhosis/ascites/SBP r/o. CT scan on admission with cirrhosis, gastric antral wall thickening. Paracentesis with SAAG~1.5 and portal HTN as cause of ascites. Denies F/C, CP, SOB, constipation, urinary complaints, weakness, lightheadedness, sensory changes. PMHx: as noted above. Denies recent trave, or sick contact. Denies h/o abdominal surgery. Dr. Crocker GI. Colonoscopy years ago with pt. report of spasmodic intestinal disorder. ROS: as noted above SHx: Denies tobacco, or IVDA. Etoh dependence. Allergies: NKDA <Castillo Max - Last Filed: 03/17/18 19:17> <Chava Boyd - Last Filed: 03/17/18 20:08> - General Chief Complaint: Diarrhea Stated Complaint: DIARRHEA, SYNCOPE Time Seen by Provider: 03/17/18 13:20 Past History - Past Medical History Anemia: Yes Asthma: No Cancer: No Cardiac Disorders: No CVA: No COPD: No CHF: No Dementia: No Diabetes: No GI Disorders: Yes (ASCITIS,ABD. PAIN, GERD, pancreatitis;ON PRILOSEC) Disorders: No HTN: Yes (NOT CURRENTLY ON MED) Hypercholesterolemia: Yes (NOT CURRENTLY ON MED--TAKEN OFF) Kidney Stones: No Liver Disease: No Psychiatric Problems: Yes (anxiety/depression) Seizures: No Thyroid Disease: Yes (HYPOTHYROIDISM- ON SYNTHROID 100 MCG) - Surgical History Abdominal Surgery: No Appendectomy: No Cardiac Surgery: No Cholecystectomy: No Lung Surgery: No Neurologic Surgery: No Orthopedic Surgery: No - Reproductive History PID: No - Suicide/Smoking/Psychosocial Hx Smoking Status: No Smoking History: Never smoked Have you smoked in the past 12 months: No Number of Cigarettes Smoked Daily: 0 Information on smoking cessation initiated: No Hx Alcohol Use: Yes (ALCOHOLIC) Drug/Substance Use Hx: No Substance Use Type: None Hx Substance Use Treatment: No <Castillo Max - Last Filed: 03/17/18 19:17> <Chava Boyd - Last Filed: 03/17/18 20:08> - Past Medical History Allergies/Adverse Reactions: Allergies Allergy/AdvReac Type Severity Reaction Status Date / Time No Known Allergies Allergy Verified 03/17/18 12:47 Home Medications: Ambulatory Orders Fluoxetine HCl 20 mg PO DAILY capsule 04/03/17 Levothyroxine [Synthroid -] 100 mcg PO DAILY 01/08/18 Pantoprazole Sodium [Protonix -] 40 mg PO DAILY #30 tablet.ec 02/09/18 Furosemide [Lasix -] 40 mg PO DAILY #30 tablet 02/16/18 Spironolactone [Aldactone] 50 mg PO BID #60 tablet 02/16/18 propRANOLol HCL [Inderal -] 10 mg PO TID #90 tablet 02/16/18 Ciprofloxacin [Cipro (Restricted To Id)] 500 mg PO BID #10 tablet 03/17/18 Oxycodone HCl 15 mg PO QID 03/17/18 metroNIDAZOLE [Flagyl -] 500 mg PO TID #15 tablet 03/17/18 Abd/GI Specific PMHX - Complaint Specific PMHX Hepatitis: No Pancreatitis: No <Castillo Max - Last Filed: 03/17/18 19:17> Review of Systems - Review of Systems Comments:: 03/17/18 14:29 GENERAL/CONSTITUTIONAL: No fever or chills. No weakness. HEAD, EYES, EARS, NOSE AND THROAT: No change in vision. No ear pain or discharge. No sore throat. CARDIOVASCULAR: No chest pain or shortness of breath RESPIRATORY: No cough, wheezing, or hemoptysis. GASTROINTESTINAL:+ Abdominal pain, nausea, vomiting, and diarrhea. No constipation. GENITOURINARY: No dysuria, frequency, or change in urination. MUSCULOSKELETAL: No joint or muscle swelling or pain. No neck or back pain. SKIN: No rash NEUROLOGIC: No headache, vertigo, loss of consciousness, or change in strength/ sensation. ENDOCRINE: No increased thirst. No abnormal weight change HEMATOLOGIC/LYMPHATIC: No anemia, easy bleeding, or history of blood clots. ALLERGIC/IMMUNOLOGIC: No hives or skin allergy. <MansoorCastillo - Last Filed: 03/17/18 19:17> *Physical Exam - Vital Signs Last Vital Signs Temp Pulse Resp BP Pulse Ox 98.3 F 80 18 105/66 100 03/17/18 12:48 03/17/18 12:48 03/17/18 12:48 03/17/18 12:48 03/17/18 12:48 - Physical Exam Comments: 03/17/18 14:30 GENERAL: Awake, alert, and fully oriented, in no acute distress HEAD: No signs of trauma, normocephalic, atraumatic EYES: PERRLA, EOMI, sclera anicteric, conjunctiva clear ENT: Hearing grossly normal, nares patent, oropharynx clear without exudates. Moist mucosa NECK: Normal ROM, supple, no lymphadenopathy, JVD, or masses LUNGS: No distress, speaks full sentences, clear to auscultation bilaterally HEART: Regular rate and rhythm, normal S1 and S2, no murmurs, rubs or gallops, peripheral pulses normal and equal bilaterally. ABDOMEN: Soft, diffusely ttp, normoactive bowel sounds. No guarding, no rebound. No masses. Neg CVA ttp. EXTREMITIES : Normal inspection, Normal range of motion, no edema. No clubbing or cyanosis. SKIN: Warm, Dry, normal turgor, no rashes or lesions noted <Ezra Maxson - Last Filed: 03/17/18 19:17> - Vital Signs Last Vital Signs Temp Pulse Resp BP Pulse Ox 98.3 F 80 18 105/66 100 03/17/18 12:48 03/17/18 12:48 03/17/18 12:48 03/17/18 12:48 03/17/18 12:48 <Chava Boyd - Last Filed: 03/17/18 20:08> ED Treatment Course - LABORATORY CBC & Chemistry Diagram: 03/17/18 14:20 03/17/18 14:20 <Castillo Max - Last Filed: 03/17/18 19:17> - LABORATORY CBC & Chemistry Diagram: 03/17/18 14:20 03/17/18 14:20 - ADDITIONAL ORDERS Additional order review: Laboratory Results 03/17/18 03/17/18 03/17/18 14:20 14:20 14:20 PT with INR 16.20 H INR 1.43 H Sodium 133 L Potassium 4.4 Chloride 96 L Carbon Dioxide 25 Anion Gap 12 BUN 7 Creatinine 0.8 Creat Clearance w eGFR > 60 Random Glucose 93 Calcium 7.3 L Total Bilirubin 3.5 H D AST 131 H ALT 29 Alkaline Phosphatase 151 H Total Protein 8.1 Albumin 3.3 L Urine Color Straw Urine Appearance Clear Urine pH 7.0 Ur Specific Durant 1.003 Urine Protein Negative Urine Glucose (UA) Negative Urine Ketones Negative Urine Blood Negative Urine Nitrite Negative Urine Bilirubin Negative Urine Urobilinogen Negative Ur Leukocyte Esterase Negative 03/17/18 14:20 RBC 3.05 L D MCV 112.9 H MCHC 33.8 RDW 17.9 H MPV 10.9 D Neutrophils % 63.6 Lymphocytes % 24.7 Monocytes % 7.9 Eosinophils % 2.5 D Basophils % 1.3 - Medications Given in the ED: ED Medications Discontinued Medications Generic Name Dose Route Start Last Admin Trade Name Bonifacioq PRN Reason Stop Dose Admin Dicyclomine HCl 10 mg 03/17/18 13:54 03/17/18 14:00 Bentyl - PO 03/17/18 13:55 10 mg ONCE ONE Administration Sodium Chloride 1,000 mls @ 1,000 mls/hr 03/17/18 13:41 03/17/18 14:00 Normal Saline - IV 03/17/18 14:40 1,000 mls/hr ASDIR STA Administration Morphine Sulfate 2 mg 03/17/18 14:21 03/17/18 14:41 Morphine Injection - IVPUSH 03/17/18 14:22 2 mg ONCE ONE Administration <Chava Boyd - Last Filed: 03/17/18 20:08> Medical Decision Making - Medical Decision Making 03/17/18 14:23 52 yo F with h/o Etoh dependence ( with multiple detox admissions, and cirrhosis ), HTN, HLD, hypothyroidisim, pancreatitis, GERD who p/w with abdominal pain. BP 105/66. Vitals wnl, A&O3. diffuse abdominal ttp. Will consider colitis, SBP, appendicitis, cystitis, ovarian pathology. Low suspicion mesenteric ischemia. 03/17/18 18:29 ED Course: CTH: No definitive change compared to CT ( 01/08/2018). No acute pathology. 03/17/18 18:31 PLT: 86 AST/ALT: 131/29 Alk Phosph: 159 03/17/18 18:32 UA: Neg <Castillo Max - Last Filed: 03/17/18 19:17> *DC/Admit/Observation/Transfer - Discharge Dispostion Decision to Admit order: No - Attestations Physician Attestion: 03/17/18 18:32 I attest to the information provided in this note. <Castillo Max - Last Filed: 03/17/18 19:17> - Discharge Dispostion Decision to Admit order: No <Chava Boyd - Last Filed: 03/17/18 20:08> Diagnosis at time of Disposition: Abdominal pain Qualifiers: Abdominal location: generalized Qualified Code(s): R10.84 - Generalized abdominal pain - Discharge Dispostion Disposition: HOME Condition at time of disposition: Stable - Prescriptions Prescriptions: Ciprofloxacin [Cipro (Restricted To Id)] 500 mg PO BID #10 tablet metroNIDAZOLE [Flagyl -] 500 mg PO TID #15 tablet - Referrals Referrals: Matti Hutchison MD [Primary Care Provider] - - Patient Instructions Printed Discharge Instructions: DI for Abdominal Pain-Adult Additional Instructions: Please return to the emergency department with any new or worsening symptoms or concerns. Please follow up with your primary care physician within 72 hours. We have sent a prescription to your pharmacy for antibiotics that you should take as directed for the next 5 days. - Post Discharge Activity
[2018-03-17] MEDS ORDERED: DICYCLOMINE HCL 10 MG CAPSULE PO ONE (13:54)
[2018-03-17] MEDS ORDERED: DICYCLOMINE HCL 10 MG CAPSULE ONE (14:00)
[2018-03-17] MEDS ORDERED: morphine CARPU-JECT 2 MG/1 ML DISP.SYRIN IVPUSH ONE (14:21)
[2018-03-17 14:32] LABS: BASO % 1.3 % (0-2.0); EOS % 2.5 % (0-4.5); HEMATOCRIT 34.4 % (32.4-45.2); HEMOGLOBIN 11.7 GM/dL (10.7-15.3); LYMPH % 24.7 % (8-40); MCH 38.2 pg (25.7-33.7); MCHC 33.8 g/dl (32.0-36.0); MEAN CELL VOLUME 112.9 fl (80-96); MEAN PLT VOLUME 10.9 fl (7.5-11.1); MONO % 7.9 % (3.8-10.2); NEUT % 63.6 % (42.8-82.8); PLATELET COUNT 86 K/MM3 (134-434); RBC 3.05 M/mm3 (3.60-5.2); RDW 17.9 % (11.6-15.6); WHITE BLOOD COUNT 4.6 K/mm3 (4.0-10.0)
[2018-03-17 14:36] LABS: URINE APPEARANCE CLEAR; URINE BILIRUBIN NEGATIVE (<2.0 mg/dL); URINE BLOOD NEGATIVE (NEGATIVE); URINE COLOR STRAW; URINE GLUCOSE (UA) NEGATIVE (NEGATIVE); URINE KETONE NEGATIVE (NEGATIVE); URINE LEUK ESTERASE NEGATIVE (NEGATIVE); URINE NITRITE NEGATIVE (NEGATIVE); URINE PROTEIN NEGATIVE (NEGATIVE); URINE UROBILINOGEN NEGATIVE mg/dL (0.2-1.0)
[2018-03-17] MEDS ORDERED: morphine CARPU-JECT 2 MG/1 ML DISP.SYRIN ONE (14:38)
[2018-03-17 14:46] LABS: INR 1.43 (0.82-1.09); PROTHROMBIN TIME (PATIENT) 16.2 SEC (9.7-13.0)
[2018-03-17 15:06] LABS: ALBUMIN 3.3 g/dl (3.4-5.0); ALK PHOS 151 U/L (45-117); ANION GAP 12 (8-16); BILIRUBIN,TOTAL 3.5 mg/dL (0.2-1.0); BLOOD UREA NITROGEN 7 mg/dL (7-18); CALCIUM 7.3 mg/dL (8.5-10.1); CHLORIDE 96 mmol/L (98-107); CO2 25 mmol/L (21-32); CREATININE 0.8 mg/dL (0.55-1.02); GLUCOSE,RANDOM 93 mg/dL (74-106); POTASSIUM 4.4 mmol/L (3.5-5.1); SGOT/AST 131 U/L (15-37); SGPT/ALT 29 U/L (12-78); SODIUM 133 mmol/L (136-145); TOT PROT 8.1 g/dl (6.4-8.2)
[2018-03-17 15:45] LABS: ANISOCYTOSIS 1+; MACROCYTOSIS 1+; OVALOCYTE 1+; PLATELET ESTIMATE DECREASED
--- NOTE | 2018-03-19 15:38 | EKG ---
Test Reason : Blood Pressure : / mmHG Vent. Rate : 080 BPM Atrial Rate : 080 BPM P-R Int : 126 ms QRS Dur : 074 ms QT Int : 418 ms P-R-T Axes : 041 020 036 degrees QTc Int : 482 ms POOR DATA QUALITY, INTERPRETATION MAY BE ADVERSELY AFFECTED NORMAL SINUS RHYTHM POSSIBLE LEFT ATRIAL ENLARGEMENT NONSPECIFIC ST ABNORMALITY PROLONGED QT ABNORMAL ECG WHEN COMPARED WITH ECG OF 11-FEB-2018 22:17, NO SIGNIFICANT CHANGE WAS FOUND Confirmed by MAME GARCIA MD ([id number]) on 03/19/2018 3:37:49 PM Referred By: Confirmed By:MAME GARCIA MD
== END 2018-03-17 20:47 | disposition home or self-care (01) ==
LOC: JER 12:44
PROC: 3E033NZ Introduction of Analgesics, Hypnotics, Sedatives into Peripheral Vein, Percutaneous Approach (ICD-10-PCS; principal; 2018-03-17)
PROC: 3E0337Z Introduction of Electrolytic and Water Balance Substance into Peripheral Vein, Percutaneous Approach (ICD-10-PCS; 2018-03-17)
DX: R10.84 Generalized abdominal pain (principal); I10 Essential (primary) hypertension; E78.5 Hyperlipidemia, unspecified; E03.9 Hypothyroidism, unspecified; K85.90 Acute pancreatitis without necrosis or infection, unspecified
CPT/HCPCS: 36415; 70450-TC; 74176-TC; 80053; 81003; 85025; 85610; 87086; 93005; 93010; 99283-25; J7030

== ENCOUNTER 2018-08-02 13:10 | Emergency (ER) | payer OTHER ==
--- NOTE | 2018-08-02 13:17 | PDOC ---
History of Present Illness - General Stated Complaint: ABDOMINAL PAIN Time Seen by Provider: 08/02/18 13:17 History Source: Patient Exam Limitations: No Limitations - History of Present Illness Initial Comments: Pt is a 53 yo F, with PMH of EtOH use (1-2 pints vodka/day), liver cirrhosis, hypothyroidism, pancreatitis, GERD, and chronic back pain, who is presenting with abdominal distension and diffuse discomfort x4 days. She describes the discomfort as a "stretching" sensation, which has worsened with the distension. It is also associated with increased stool frequency (4-5 episodes/day). Pt also noticed skin discoloration, "looking neves," for ~1-2 weeks. Pt denies any headache, vision changes, chest pain, SOB, nausea/vomiting, abdominal pain, diarrhea/constipation, blood in stool, or leg swelling. She has been tolerating PO intake. Pt drinks 1-2 pints of vodka per day, but denies cigarette and drug use. Pt denies recent travel and other sick contacts. 08/02/18 16:55 08/02/18 23:05 Past History - Travel Traveled outside of the country in the last 30 days: No Close contact w/someone who was outside of country & ill: No - Past Medical History Allergies/Adverse Reactions: Allergies Allergy/AdvReac Type Severity Reaction Status Date / Time No Known Allergies Allergy Verified 08/02/18 13:26 Home Medications: Ambulatory Orders Fluoxetine HCl 20 mg PO DAILY capsule 04/03/17 Levothyroxine [Synthroid -] 100 mcg PO DAILY 01/08/18 Pantoprazole Sodium [Protonix -] 40 mg PO DAILY #30 tablet.ec 02/09/18 Oxycodone HCl 15 mg PO QID 03/17/18 Cephalexin [Keflex] 500 mg PO BID 5 Days #10 capsule 08/02/18 Furosemide [Lasix -] 40 mg PO DAILY #14 tablet 08/02/18 Multivitamins [Tab-A-Vit -] 1 tab PO DAILY 08/02/18 Spironolactone 100 mg PO DAILY #14 tablet 08/02/18 Anemia: Yes Asthma: No Cancer: No Cardiac Disorders: No CVA: No COPD: No CHF: No Dementia: No Diabetes: No GI Disorders: Yes (ASCITIS,ABD. PAIN, GERD, pancreatitis;ON PRILOSEC) Disorders: No HTN: Yes (NOT CURRENTLY ON MED) Hypercholesterolemia: Yes (NOT CURRENTLY ON MED--TAKEN OFF) Kidney Stones: No Liver Disease: No Psychiatric Problems: Yes (anxiety/depression) Seizures: No Thyroid Disease: Yes (HYPOTHYROIDISM- ON SYNTHROID 100 MCG) - Surgical History Abdominal Surgery: No Appendectomy: No Cardiac Surgery: No Cholecystectomy: No Lung Surgery: No Neurologic Surgery: No Orthopedic Surgery: No - Reproductive History PID: No - Suicide/Smoking/Psychosocial Hx Smoking Status: No Smoking History: Never smoked Have you smoked in the past 12 months: No Number of Cigarettes Smoked Daily: 0 Hx Alcohol Use: Yes (ALCOHOLIC) Drug/Substance Use Hx: No Substance Use Type: None Hx Substance Use Treatment: No Review of Systems - Review of Systems Able to Perform ROS?: Yes Is the patient limited Kinyarwanda proficient: No Constitutional: Yes: Weight Stable. No: Chills, Diaphoresis, Fever, Loss of Appetite, Night Sweats, Weakness HEENTM: No: Blurred Vision, Recent change in vision, Double Vision, Hearing Loss , Difficulty Swallowing Respiratory: Yes: Shortness of Breath (SOB since distension started). No: Cough , Orthopnea Cardiac (ROS): No: Chest Pain, Edema, Irregular Heart Rate, Lightheadedness, Palpitations, Syncope, Chest Tightness ABD/GI: Yes: Abdominal Distended, Other (increased frequency of stools (4-5x/day ). No: Abd. Pain w/ defecation, Blood Streaked Bowels, Constipated, Diarrhea, Poor Appetite, Poor Fluid Intake, Rectal Bleeding, Vomiting, Abdominal cramping : No: Burning, Dysuria, Frequency, Hematuria, Pain, Urgency Musculoskeletal: No: Back Pain, Joint Pain, Muscle Weakness Integumentary: Yes: Change in Color (change in skin, looking "neves"). No: Bruising, Erythema, Rash Neurological: No: Headache, Numbness, Paresthesia, Seizure, Tremors, Unsteady Gait, Ataxia, Dizziness Psychiatric: No: Sleep Pattern Change, Change in Appetite Endocrine: No: Increased Urine, Change in Weight Hematologic/Lymphatic: No: Anemia, Blood Clots, Easy Bleeding, Easy Bruising All Other Systems: Reviewed and Negative *Physical Exam - Physical Exam General Appearance: Yes: Nourished, Appropriately Dressed, Moderate Distress ( Pt uncomfortable lying flat. Abdomen clearly distended.), Thin. No: Alcohol on Breath, Intoxicated HEENT: positive: EOMI, VERA, Normal Voice, Symmetrical, Pharynx Normal, Scleral Icterus (R), Scleral Icterus (L), Hearing Grossly Normal. negative: Normal ENT Inspection, Pharyngeal Erythema, Tonsillar Exudate, Tonsillar Erythema, Rhinorrhea Neck: positive: Trachea midline, Normal Thyroid, Supple. negative: Tender, Rigid, Lymphadenopathy (R), Lymphadenopathy (L) Respiratory/Chest: positive: Lungs Clear, Normal Breath Sounds, Labored Respiration (labored respiration during pulmonary exam). negative: Chest Tender , Respiratory Distress, Accessory Muscle Use, Crackles, Plerual Rub Cardiovascular: positive: Regular Rhythm, Regular Rate, S1, S2. negative: Edema , JVD, Murmur Vascular Pulses: Carotid (R): 4+, Carotid (L): 4+ Gastrointestinal/Abdominal: positive: Normal Bowel Sounds, Tender (diffuse tenderness due to distension.), Distended. negative: Flat, Soft, Organomegaly ( unable to appreciate due to distension), Pulsatile Mass, Guarding, Rebound Rectal Exam: positive: deferred Lymphatic: negative: Adenopathy, Tenderness Musculoskeletal: positive: Normal Inspection. negative: CVA Tenderness Extremity: positive: Normal Capillary Refill, Normal Inspection, Normal Range of Motion, Pelvis Stable. negative: Tender, Cyanosis, Pedal Edema Integumentary: positive: Dry, Warm, Jaundice, Other (Pt skin appears dusky). 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 Morelos. Pt presenting with abdominal distension and discomfort x4 days. Pt also noticed skin discoloration "looking neves" for ~1-2 weeks. Pt denies any headache, vision changes, chest pain, SOB, nausea/vomiting, abdominal pain, diarrhea/constipation , or leg swelling. She has been tolerating PO intake. Pt drinks 1-2 pints of vodka per day, but denies cigarette and drug use. Pt has been seen at multiple times in the past, including recent visits (February/March 2018) for drainage of ascites and diagnostic paracentesis. Pt last GGT 341, known portal HTN and ascites, last CT scan showed increased hepatosplenomegaly. Hep B and Hep C negative. Pt denies any medications of history of HTN and HLD. PT vitals stable, afebrile. PE showed dusky skin discoloration, scleral icterus , and diffuse abdominal distension. Pt has no tenderness to abdominal palpation , hepatosplenomegaly unable to assess due to distension. No caput medusae, no pedal edema. Pt became SOB with pulmonary exam. Considering her history of portal HTN and history of ascites, likely reoccurrence of ascites due to alcohol use. SBP unlikely as pt has no diffuse tenderness, afebrile. Pt having BMs and no vomiting, unlikely obstruction. Ordered work-up including CBC, CMP, Mg, Phos, ECG, UA, urine culture, and limited abdominal US (liver). Provided 4 mg IV morphine for improvement of pain. Will continue to reassess pt and monitor for symptomatic improvement. Likely admission based on symptomatic ascites (SOB, discomfort) vs urgent follow -up with GI for paracentesis. 08/02/18 13:36 Chest x-ray showed no acute pathology. Pending labs. 08/02/18 14:10 Labwork similar to pt baseline Pt anemic (10.2/31.0), platelets 59 (range 50-70s), K 3.2, Tbil 5.1, AST 76, ALT 23 (2:1 ratio), P 2.1, Mg .9. Pt more comfortable after morphine administration, lying comfortably and talking on the phone. UA showed UTI: leuk est 2+, urobili 4, WBC 16. Ordered abdominal US to look for liver changes (new cysts, portal HTN). Will contact GI after US to see their recommendations for symptomatic tap. 08/02/18 15:18 Pt taken to US, awaiting results. 08/02/18 16:15 [id number] US/ABDOMEN US -LIMITED Right upper quadrant abdominal sonogram HISTORY: Ascites and cirrhosis FINDINGS: The liver measures 18.7 cm with increased and coarse echogenicity with no evidence of a focal lesion. A moderate amount of ascites is present. There are no gallstones. 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 Visualized portions of the pancreas and aorta unremarkable. The IVC was not visualized. The right kidney measures 10 cm and is unremarkable IMPRESSION: Moderate amount of ascites Enlarged liver with coarse echogenicity compatible with diffuse hepatocellular disease Although no evidence of gallstones the common bile duct is difficult to identify by nuclear medicine chief technologist demonstrates abnormally dilatation measuring 0.9 cm 08/02/18 16:35 US showed moderate ascites, no new liver changes. Providing 5 mg PO oxycodone for additional pain control. Paging GI on-call (Dr. Gregg) for recommendations (admission versus seeing pt outpatient urgently). 08/02/18 16:[address] Gregg, who suggested outpatient management with close follow-up with PCP, as well as adding 100 mg PO Spironolactone Qday and 40 mg PO Lasix Qday. Sent prescriptions to the pharmacy, including 500 mg PO Keflex BID x5 days for UTI. Pt can be discharged to home with follow-up. Pt advised to follow-up with PCP by Friday of this week, to give new medications time to have effect. Strict return precautions provided with pt understanding. 08/02/18 17:21 *DC/Admit/Observation/Transfer Diagnosis at time of Disposition: Cirrhosis Qualifiers: Hepatic cirrhosis type: alcoholic cirrhosis Ascites presence: with ascites Qualified Code(s): K70.31 - Alcoholic cirrhosis of liver with ascites Ascites Qualifiers: Ascites type: due to alcoholic hepatitis Qualified Code(s): K70.11 - Alcoholic hepatitis with ascites Urinary tract infection Qualifiers: Urinary tract infection type: site unspecified Hematuria presence: with hematuria Qualified Code(s): N39.0 - Urinary tract infection, site not specified - Discharge Dispostion Disposition: HOME Condition at time of disposition: Improved Decision to Admit order: No - Prescriptions Prescriptions: Cephalexin [Keflex] 500 mg PO BID 5 Days #10 capsule Furosemide [Lasix -] 40 mg PO DAILY #14 tablet Spironolactone 100 mg PO DAILY #14 tablet - Referrals Referrals: Matti Hutchison MD [Primary Care Provider] - [facility] [Provider Group] - Patient Instructions Printed Discharge Instructions: DI for Ascites, DI for Alcohol Abuse Additional Instructions: You were seen in the ER today for fluid in your abdomen. The results of your labs and US today were similar to your prior visits, and are due to your alcohol intake. Please attempt to reduce your use of alcohol. Please follow-up with your primary care doctor on Friday to discuss your visit and make sure your symptoms have improved. I have sent two new medications to your pharmacy ( 100 mg Spironolactone 1x per day, and 40 mg Lasix 1x per day). Please take these medications to reduce the swelling in your abdomen, and take your pain medication at home as prescribed. It may take a few days to notice reduction of the fluid in your abdomen. We have also sent antibiotics to your pharmacy (500 mg twice per day, for 5 days) for a urinary tract infection. Please return to the ER if you have any worsening abdominal pain or swelling, vomiting or stool with blood, loss of consciousness, inability to tolerate food or fluids, or any other concerns. - Post Discharge Activity
[2018-08-02 13:25] VITALS: BMI 22.9
--- NOTE | 2018-08-02 13:36 | PDOC ---
Attending Attestation - Resident Resident Name: Laisha Darling - ED Attending Attestation I have performed the following: I have examined & evaluated the patient, The case was reviewed & discussed with the resident, I agree w/resident's findings & plan, Exceptions are as noted - HPI HPI: 08/02/18 15:54 The patient is a 53 year old female, with a significant PMH of EtOH abuse ( drinks 2 pints of alcohol everyday), hypothryoid, GERD, arthritis, pancreatitis , and portal HTN who presents to the emergency department with increasing abdominal distension for the past 4 days. Pt notes the ditension is causing her discomfort and some sob. Patient denies any nausea, vomit, or diarrhea/bpr/ melena but has noticed increased number of bowel movements, approximately 4-5 / day. Patient has noticed her stool has been more dietz over the past week and a half. Patient also admits to mild shortness of breath secondary to the abdominal distension. Pt note she has had her acites taped in the past, last time was approx 1 year ago in [facility] The patient denies chest pain, shortness of breath, headache and dizziness. Denies fever, chills, nausea, vomit, diarrhea and constipation. Denies dysuria, frequency, urgency and hematuria. Allergies: NKA Past surgical history: None reported. Social history: EtOH abuse. No reported drug or cigarette use. - Physicial Exam PE: 08/02/18 15:54 GENERAL: The patient is awake, alert, and fully oriented, Nontoxic - in no acute distress. atremulous HEAD: Normocephalic, atraumatic. EYES: extraocular movements intact, sclera slightly icteric, conjunctiva clear. ENT: Normal voice, Moist mucous membranes. NECK: Normal range of motion, supple LUNGS: Breath sounds equal, clear to auscultation bilaterally. No wheezes, no rhonchi, no rales. HEART: Regular rate and rhythm, normal S1 and S2 without murmur, rub or gallop. ABDOMEN: distended abdomen, firm to touch, no rebound/guarding EXTREMITIES: Normal range of motion, NEUROLOGICAL: No facial assymetry, Normal speech, PSYCH: Normal mood, normal affect. SKIN: Warm, Dry, normal turgor, - Medical Decision Making 08/02/18 13:43 suspect acites due to liver failure secondary to etoh abuse no fevers/tenderness to suggest SBP +jaundice will obtain blood work to evalu liver function liver US may need to be admitted for theraputic paracentesis due to symptoms 08/02/18 16:57 pts labs noted at approx baseline US noted for moderate ascites will see if pt can fu with GI tomorrow
[2018-08-02] MEDS ORDERED: morphine CARPU-JECT 4 MG/1 ML DISP.SYRIN IVPUSH ONE (13:53)
[2018-08-02] MEDS ORDERED: morphine SULFATE 4 MG/ML VIAL ONE (13:54)
[2018-08-02 14:35] LABS: URINE APPEARANCE SLCLOUDY; URINE COLOR AMBER; URINE GLUCOSE (UA) NEGATIVE (NEGATIVE); URINE KETONE NEGATIVE (NEGATIVE); URINE LEUK ESTERASE 2+ (NEGATIVE); URINE NITRITE NEGATIVE (NEGATIVE); URINE PROTEIN 2+ (NEGATIVE); URINE UROBILINOGEN 4.0 E.U/dl mg/dL (0.2-1.0)
[2018-08-02 14:37] LABS: BASO % 0.9 % (0-2.0); HEMOGLOBIN 10.2 GM/dL (10.7-15.3); LYMPH % 17.5 % (8-40); MCH 38.7 pg (25.7-33.7); MCHC 32.9 g/dl (32.0-36.0); MEAN CELL VOLUME 117.6 fl (80-96); MEAN PLT VOLUME 10.8 fl (7.5-11.1); NEUT % 64.6 % (42.8-82.8); PLATELET COUNT 59 K/MM3 (134-434); RBC 2.64 M/mm3 (3.60-5.2); RDW 15.8 % (11.6-15.6); WHITE BLOOD COUNT 4.4 K/mm3 (4.0-10.0)
[2018-08-02 14:49] LABS: INR 1.59 (0.83-1.09); PROTHROMBIN TIME (PATIENT) 18.9 SEC (9.7-13.0)
[2018-08-02 14:52] LABS: ACTIVATED PTT 29.6 SECONDS (25.2-36.5)
[2018-08-02 14:57] LABS: ALBUMIN 2.9 g/dl (3.4-5.0); ALK PHOS 161 U/L (45-117); ANION GAP 14 MMOL/L (8-16); BILIRUBIN,TOTAL 5.1 mg/dL (0.2-1); BLOOD UREA NITROGEN 16 mg/dL (7-18); CALCIUM 7.7 mg/dL (8.5-10.1); CHLORIDE 106 mmol/L (98-107); CO2 23 mmol/L (21-32); CREATININE 0.9 mg/dL (0.55-1.3); EPI CELLS MANY /HPF (FEW); GLUCOSE,RANDOM 103 mg/dL (74-106); LIPASE 381 U/L (73-393); MAGNESIUM 0.9 mg/dL (1.8-2.4); PHOSPHOROUS 2.1 mg/dL (2.5-4.9); POTASSIUM 3.2 mmol/L (3.5-5.1); SGOT/AST 76 U/L (15-37); SGPT/ALT 23 U/L (13-61); SODIUM 143 mmol/L (136-145); TOT PROT 7.5 g/dl (6.4-8.2); URINE BACTERIA RARE /hpf (NONE SEEN); URINE HYALINE CAST 21 /lpf; URINE MUCUS RARE
[2018-08-02 15:42] LABS: MACROCYTOSIS 2+; OVALOCYTE 1+; TEAR DROP CELLS 1+
[2018-08-02 15:43] LABS: PLATELET ESTIMATE DECREASED
[2018-08-02] MEDS ORDERED: MAGNESIUM SULF 50% (8.12 MEQ/2 ML-1 GM VIAL) IVPB ONE (16:33)
[2018-08-02] MEDS ORDERED: SODIUM CHLORIDE IVPB ONE (16:33)
[2018-08-02] MEDS ORDERED: POTASSIUM PHOSPHATE IVPB ONE (16:33)
[2018-08-02] MEDS ORDERED: POTASSIUM PHOSPHATE 15 MM in SODIUM CHLORIDE 250 ML IVPB ONE (16:38)
[2018-08-02] MEDS ORDERED: MAGNESIUM SULF 50% (8.12 MEQ/2 ML-1 GM VIAL) ONE (16:42)
[2018-08-02] MEDS ORDERED: oxyCODONE HCL 5 MG TABLET PO ONE (16:46)
[2018-08-02] MEDS ORDERED: oxyCODONE HCL 5 MG TABLET ONE (16:53)
[2018-08-02] MEDS ORDERED: POTASSIUM CHLORIDE ORAL LIQUID 20 MEQ/15 ML PO ONE (17:07)
[2018-08-02] MEDS ORDERED: POTASSIUM CHLORIDE ORAL LIQUID 20 MEQ/15 ML ONE (17:13)
[2018-08-02] MEDS ORDERED: ACETAMINOPHEN 325 MG TABLET (FP) PO ONE (17:16)
[2018-08-02] MEDS ORDERED: FUROSEMIDE 40 MG TABLET (FP) ONE (17:16)
[2018-08-02] MEDS ORDERED: SPIRONOLACTONE 25 MG TABLET (FP) PO ONE (17:16)
[2018-08-02] MEDS ORDERED: ACETAMINOPHEN 325 MG TABLET (FP) ONE (17:16)
[2018-08-02] MEDS ORDERED: FUROSEMIDE 40 MG TABLET (FP) PO ONE (17:16)
[2018-08-02] MEDS ORDERED: SPIRONOLACTONE 25 MG TABLET (FP) ONE (17:17)
[2018-08-02 18:11] VITALS: BP 139/89; PULSE 78; TEMP 98.6
--- NOTE | 2018-08-03 09:46 | EKG ---
Test Reason : Blood Pressure : / mmHG Vent. Rate : 077 BPM Atrial Rate : 077 BPM P-R Int : 098 ms QRS Dur : 076 ms QT Int : 402 ms P-R-T Axes : 028 014 024 degrees QTc Int : 454 ms SINUS RHYTHM WITH SHORT MN WHEN COMPARED WITH ECG OF 17-MAR-2018 12:57, NO SIGNIFICANT CHANGE WAS FOUND Confirmed by ANNALEE PASTOR MD ([id number]) on 08/03/2018 9:46:29 AM Referred By: Confirmed By:ANNALEE PASTOR MD
== END 2018-08-02 18:11 | disposition home or self-care (01) ==
LOC: JER 13:10
PROC: 3E033NZ Introduction of Analgesics, Hypnotics, Sedatives into Peripheral Vein, Percutaneous Approach (ICD-10-PCS; principal; 2018-08-02)
PROC: 3E033GC Introduction of Other Therapeutic Substance into Peripheral Vein, Percutaneous Approach (ICD-10-PCS; 2018-08-02)
DX: K70.31 Alcoholic cirrhosis of liver with ascites (principal); K70.11 Alcoholic hepatitis with ascites; N39.0 Urinary tract infection, site not specified; F10.10 Alcohol abuse, uncomplicated; E03.9 Hypothyroidism, unspecified; K21.9 Gastro-esophageal reflux disease without esophagitis; K85.90 Acute pancreatitis without necrosis or infection, unspecified; M54.9 Dorsalgia, unspecified; G89.29 Other chronic pain; I10 Essential (primary) hypertension; F41.8 Other specified anxiety disorders; F32.9 Major depressive disorder, single episode, unspecified; L98.8 Other specified disorders of the skin and subcutaneous tissue
CPT/HCPCS: 36415; 71045-TC-FY; 76705-TC; 80053; 81003; 81015; 83690; 83735; 84100; 85025; 85610; 85730; 86850; 86900; 86901; 87086; 93005; 93010; 96374; 96375; 99284-25

== ENCOUNTER 2018-08-15 13:48 | Inpatient (IN) | payer OTHER ==
--- NOTE | 2018-08-15 14:17 | PDOC ---
History of Present Illness - General Chief Complaint: Pain, Acute Stated Complaint: ABDOMINAL PAIN Time Seen by Provider: 08/15/18 14:17 - History of Present Illness Initial Comments: 08/15/18 14:34 The patient is a 53 year old female with a history of HTN, HLD, GERD, Pancreatitis, Liver Cirrhosis, Ascities, Alcohol abuse who presents for evaluation of abdominal pain. The patient reports a several week history of worsening poorly described abdominal pain, abdominal distension and SOB prompting her presentation to the ED. She states that she was evaluated in the ED 2 weeks ago and noted to have moderate amount of ascities and was started on spirnolactone at that time. She followed up with her GI Dr. Crocker who recommended the patient represent to the ED if her symptoms did not improve in one week. The patient reports persistent symptoms despite her outpatient management prompting her presentation today. She otherwise denies fevers, chills, chest pain, nausea, vomiting, or changes with urination or bowel movements. The patient notes that she has required therapeutic taps in the past with the last one being 1 year ago. She notes that she has not consumed alcohol in 1 month. Past History - Past Medical History Allergies/Adverse Reactions: Allergies Allergy/AdvReac Type Severity Reaction Status Date / Time No Known Allergies Allergy Verified 08/15/18 14:03 Home Medications: Ambulatory Orders Fluoxetine HCl 20 mg PO DAILY capsule 04/03/17 Levothyroxine [Synthroid -] 100 mcg PO DAILY 01/08/18 Oxycodone HCl 15 mg PO QID 03/17/18 Multivitamins [Tab-A-Vit -] 1 tab PO DAILY 08/02/18 Meloxicam [Mobic] 1 tab PO ASDIR 08/15/18 Anemia: Yes Asthma: No Cancer: No Cardiac Disorders: No CVA: No COPD: No CHF: No Dementia: No Diabetes: No GI Disorders: Yes (ASCITIS,ABD. PAIN, GERD, pancreatitis;ON PRILOSEC) Disorders: No HTN: Yes (NOT CURRENTLY ON MED) Hypercholesterolemia: Yes (NOT CURRENTLY ON MED--TAKEN OFF) Kidney Stones: No Liver Disease: No Psychiatric Problems: Yes (anxiety/depression) Seizures: No Thyroid Disease: Yes (HYPOTHYROIDISM- ON SYNTHROID 100 MCG) - Surgical History Abdominal Surgery: No Appendectomy: No Cardiac Surgery: No Cholecystectomy: No Lung Surgery: No Neurologic Surgery: No Orthopedic Surgery: No - Reproductive History PID: No - Suicide/Smoking/Psychosocial Hx Smoking Status: No Smoking History: Never smoked Have you smoked in the past 12 months: No Number of Cigarettes Smoked Daily: 0 Hx Alcohol Use: Yes (ALCOHOLIC) Drug/Substance Use Hx: No Substance Use Type: None Hx Substance Use Treatment: No Review of Systems - Review of Systems Comments:: 08/15/18 14:38 Constitutional: No fevers, chills, fatigue, malaise HEENT: No Rhinorrhea, nasal congestion, visual changes Cardiovascular: No chest pain, syncope, palpitations, lightheadedness Respiratory: SOB. No Cough, Hemoptysis, Gastrointestinal: Abdominal pain, Abdominal distension. No Nausea, Vomiting, Constipation, Diarrhea, Melena Genitourinary: No Dysuria, Frequency, Urgency, Hesitancy, Hematuria, Flank pain Musculoskeletal: No Myalgia, arthralgia Skin: No rashes, itching, bruising, pallor Neurologic: No Headache, Dizziness, Numbness, Weakness, or Tingling Psychiatric: No Hallucinations. No SI or HI *Physical Exam - Vital Signs Last Vital Signs Temp Pulse Resp BP Pulse Ox 98.8 F 76 20 138/84 100 08/15/18 14:04 08/15/18 14:04 08/15/18 14:04 08/15/18 14:04 08/15/18 14:04 - Physical Exam Comments: 08/15/18 14:39 General Appearance: Nourished. No Apparent Distress HEENT: No Pharyngeal Erythema, Tonsillar Exudate, Tonsillar Erythema Neck: No Cervical Lymphadenopathy Respiratory/Chest: Lungs Clear, Normal Breath Sounds. No Crackles, Rales, Rhonchi, Wheezing Cardiovascular: Regular Rhythm, Regular Rate. No Murmur, Gallops, Rubs Gastrointestinal/Abdominal: Normal Bowel Sounds, Distended abdomen with diffuse discomfort with palpation. No Guarding, Rebound, Musculoskeletal: No CVA Tenderness Extremity: Normal Capillary Refill Integumentary: Normal Color, Dry, Warm Neurologic: Fully Oriented, Alert, Normal Mood/Affect, Normal Response, ED Treatment Course - LABORATORY CBC & Chemistry Diagram: 08/15/18 14:59 08/15/18 14:59 Medical Decision Making - Medical Decision Making 08/15/18 14:40 The patient is a 53 year old female with a history of HTN, HLD, GERD, Pancreatitis, Liver Cirrhosis, Ascities, Alcohol abuse who presents for evaluation of abdominal pain. Differential includes but is not limited to: Ascitities, Pancreatitis, Infectious, Metabolic Derangement. Given the patient' s history and physical exam, it is likely the patient symptoms are due to her ascitities. We will obtain a cbc, cmp, coags, ua to evaluate further. We will continue to monitor and reassess while here in the ED. 08/15/18 16:26 CBC is unchanged with a platelet count of 82. CMP is unchanged. Given that the patient failed outpatient management, we believe she requires admission for GI consultation. Given that the patient's platelet count is low and her INR is elevated, we are not comfortable performing a paracentisis in the ED. We discussed the case with the admitting team who accepted the patient for admission. 08/15/18 18:12 Received a call from the covering physician for Dr. Crocker who informed us that the patient has not followed with Dr. Crocker in several years. We will consult with Dr. Adams who is agriculture extension specialist today. *DC/Admit/Observation/Transfer Diagnosis at time of Disposition: Abdominal pain Qualifiers: Abdominal location: unspecified location Qualified Code(s): R10.9 - Unspecified abdominal pain Ascites Qualifiers: Ascites type: other type Qualified Code(s): R18.8 - Other ascites - Discharge Dispostion Condition at time of disposition: Stable Decision to Admit order: Yes - Referrals - Patient Instructions - Post Discharge Activity
--- NOTE | 2018-08-15 14:25 | PDOC ---
Attending Attestation - Resident Resident Name: Chava Boyd - ED Attending Attestation I have performed the following: I have examined & evaluated the patient, The case was reviewed & discussed with the resident, I agree w/resident's findings & plan, Exceptions are as noted - HPI HPI: 08/15/18 15:28 53-year-old female history of EtOH abuse (last drink1 month ago), panreatitis, portal htn, presents with persistent abdominal distention and discomfort. The patient was here roughly 1 week ago evaluated by myself and my team was discharged follow up with GI was started on spironolactone. Patient had seen GI as an outpatient who recommended her finish her spironolactone and it is persistent abdominal swelling to come back to the ER. The patient states that there was minimal improvement of her abdomen swelling, denies any fever, chills , nausea, vomiting, diarrhea, BPR, chest pain, shortness of breath. - Physicial Exam PE: 08/15/18 15:29 GENERAL: The patient is awake, alert, and fully oriented, Nontoxic - in no acute distress. HEAD: Normocephalic, atraumatic. EYES: extraocular movements intact, sclera anicteric, conjunctiva clear. ENT: Normal voice, Moist mucous membranes. NECK: Normal range of motion, supple LUNGS: Breath sounds equal, clear to auscultation bilaterally. No wheezes, no rhonchi, no rales. HEART: Regular rate and rhythm, normal S1 and S2 without murmur, rub or gallop. ABDOMEN: firm/distended abdomen with fluid wave, mild diffuse tenderenss, nor ebound/guarding, EXTREMITIES: Normal range of motion, NEUROLOGICAL: No facial assymetry, Normal speech, moving all 4 extremities spontaneously and symmetrically PSYCH: Normal mood, normal affect. SKIN: Warm, Dry, normal turgor, 08/15/18 15:30 - Medical Decision Making 08/15/18 15:31 53-year-old history of chronic alcoholism, likely cirrhosis and portal hypertension presenting with persistent abdominal swelling and pressurelike discomfort note to ascites. no ever/chills, n/v, on exam pt in no distress distended abdomen, no rebound/guarding, mild diffuse tenderness The patient's blood work noted thrombocytopenia previously will recheck her blood work consider admission for further evluation of her acites no fever or other symptoms suggestive of SBP 08/15/18 16:01 pts labs reviewed inr elev, plt low will admit for further management
[2018-08-15] MEDS ORDERED: MORPHINE SULFATE 2 MG/ML VIAL ONE ×3 (15:04→19:10)
[2018-08-15 15:17] LABS: EOS % 2.4 % (0-4.5); LYMPH % 16.1 % (8-40); MCHC 34.5 g/dl (32.0-36.0); MEAN CELL VOLUME 112.8 fl (80-96); MEAN PLT VOLUME 10.3 fl (7.5-11.1); MONO % 13.9 % (3.8-10.2); NEUT % 66.6 % (42.8-82.8); PLATELET COUNT 82 K/MM3 (134-434); RBC 2.57 M/mm3 (3.60-5.2); RDW 14.4 % (11.6-15.6)
[2018-08-15] MEDS ORDERED: morphine CARPU-JECT 2 MG/1 ML DISP.SYRIN IVPUSH ONE ×3 (15:27→18:43)
[2018-08-15 15:30] LABS: INR 1.76 (0.83-1.09); PROTHROMBIN TIME (PATIENT) 20.9 SEC (9.7-13.0)
[2018-08-15 15:33] LABS: ACTIVATED PTT 35.7 SECONDS (25.2-36.5)
[2018-08-15 15:43] LABS: ALBUMIN 2.8 g/dl (3.4-5.0); ALK PHOS 140 U/L (45-117); ANION GAP 11 MMOL/L (8-16); BILIRUBIN,TOTAL 4.1 mg/dL (0.2-1); BLOOD UREA NITROGEN 13 mg/dL (7-18); CALCIUM 8.6 mg/dL (8.5-10.1); CHLORIDE 99 mmol/L (98-107); CO2 23 mmol/L (21-32); CREATININE 0.8 mg/dL (0.55-1.3); GLUCOSE,RANDOM 80 mg/dL (74-106); LIPASE 264 U/L (73-393); POTASSIUM 4.5 mmol/L (3.5-5.1); SGOT/AST 68 U/L (15-37); SGPT/ALT 24 U/L (13-61); SODIUM 133 mmol/L (136-145); TOT PROT 6.9 g/dl (6.4-8.2)
[2018-08-15 15:53] LABS: URINE APPEARANCE SLCLOUDY; URINE BILIRUBIN NEGATIVE (<2.0 mg/dL); URINE COLOR AMBER; URINE GLUCOSE (UA) NEGATIVE (NEGATIVE); URINE KETONE NEGATIVE (NEGATIVE); URINE LEUK ESTERASE 1+ (NEGATIVE); URINE NITRITE NEGATIVE (NEGATIVE); URINE PROTEIN NEGATIVE (NEGATIVE); URINE UROBILINOGEN 4.0 E.U/dl mg/dL (0.2-1.0)
[2018-08-15 15:57] LABS: EPI CELLS FEW /HPF (FEW); URINE HYALINE CAST 1 /lpf
--- NOTE | 2018-08-15 17:38 | HP ---
CHIEF COMPLAINT: abdominal pain , SOB PCP:Dr Hutchison HISTORY OF PRESENT ILLNESS: 53 year old female with a hx of HTN, HLD, hypothyroidism, pancreatitis, GERD, liver cirrhosis and Portal HTN presents to the hospital with 2 2 weeks history of worsening abdominal pain , med epigastric local non radiating , 04/14 , she denies an fever chills , N/V/D/C but reports worsening abdominal distension from ascitic fluids associated with SOB , she mentioned she start vegeterian diet last month? she has a long history of alcoholism and daily vodka drinking , lat drin one month ago. she said Dr Aquino send her to the hospital if she did not improve ??? ED contacted him and said did not see her for years. Pt denies any headache, blurry vision , lightheadedness, chest pain , palpitation ,urinary symptoms, leg swelling , denies any hematuria or blood in the stool , denies any bloody vomiting. ER course was notable for: (1)cbc, cmp (2)GI consult Dr whitmore (3)PTT, INR Recent Travel:denies PAST MEDICAL HISTORY: HTN, HLD, hypothyroidism, pancreatitis, GERD, liver cirrhosis , Portal hypertension PAST SURGICAL HISTORY: none Social History: Smoking: never Alcohol: 4-5 days a week, claims to drink 1-2 drinks a night Drugs: never Family History: Allergies No Known Allergies Allergy (Verified 08/15/18 14:03) HOME MEDICATIONS: Home Medications Medication Instructions Recorded Fluoxetine HCl 20 mg PO DAILY capsule 04/03/17 Levothyroxine [Synthroid -] 100 mcg PO DAILY 01/08/18 Oxycodone HCl 15 mg PO QID 03/17/18 Multivitamins [Tab-A-Vit -] 1 tab PO DAILY 08/02/18 Meloxicam [Mobic] 1 tab PO ASDIR 08/15/18 REVIEW OF SYSTEMS CONSTITUTIONAL: Absent: fever, chills, diaphoresis, generalized weakness, malaise, loss of appetite, weight change HEENT: Absent: rhinorrhea, nasal congestion, throat pain, throat swelling, difficulty swallowing, mouth swelling, ear pain, eye pain, visual changes CARDIOVASCULAR: Absent: chest pain, syncope, palpitations, irregular heart rate, lightheadedness , peripheral edema RESPIRATORY: Absent: cough, shortness of breath, dyspnea with exertion, orthopnea, wheezing, stridor, hemoptysis GASTROINTESTINAL: Absent: abdominal pain, abdominal distension, nausea, vomiting, diarrhea, constipation, melena, hematochezia GENITOURINARY: Absent: dysuria, frequency, urgency, hesitancy, hematuria, flank pain, genital pain MUSCULOSKELETAL: Absent: myalgia, arthralgia, joint swelling, back pain, neck pain SKIN: Absent: rash, itching, pallor HEMATOLOGIC/IMMUNOLOGIC: Absent: easy bleeding, easy bruising, lymphadenopathy, frequent infections ENDOCRINE: Absent: unexplained weight gain, unexplained weight loss, heat intolerance, cold intolerance NEUROLOGIC: Absent: headache, focal weakness or paresthesias, dizziness, unsteady gait, seizure, mental status changes, bladder or bowel incontinence PSYCHIATRIC: Absent: anxiety, depression, suicidal or homicidal ideation, hallucinations. PHYSICAL EXAMINATION Vital Signs - 24 hr 08/15/18 14:04 Temperature 98.8 F Pulse Rate 76 Respiratory 20 Rate Blood Pressure 138/84 O2 Sat by Pulse 100 Oximetry (%) GENERAL: AAOx3 in NAD HEAD: NC/AT EYES: CASSIDY, EOMI , sclera icteric, conjunctiva clear. ENT: Moist mucous membranes. NECK: Normal range of motion, supple LUNGS: CTA B/L . No wheezes, and no crackles. No accessory muscle use. HEART: RRR, normal S1 and S2 without murmur, ABDOMEN: Soft, mid epigastric tenderness , distended, normoactive bowel sounds , no guarding, no rebound, dullness to percussion , shifting dullness positive no astrexis , no spider angiomata MUSCULOSKELETAL: Normal range of motion at all joints. No bony deformities or tenderness. No CVA tenderness. LOWER EXTREMITIES: 2+ pulses, warm, well-perfused. No calf tenderness. No peripheral edema. NEUROLOGICAL:no focal deficit . Normal speech. PSYCHIATRIC: Cooperative. Good eye contact. Appropriate mood and affect. SKIN: Warm, dry, normal turgor, Laboratory Results - last 24 hr 08/15/18 08/15/18 08/15/18 14:59 14:59 14:59 WBC 3.0 L RBC 2.57 L Hgb 10.0 L Hct 29.0 L MCV 112.8 H MCH 39.0 H MCHC 34.5 RDW 14.4 Plt Count 82 L D MPV 10.3 Absolute Neuts (auto) 2.0 Neutrophils % 66.6 Lymphocytes % 16.1 Monocytes % 13.9 H Eosinophils % 2.4 D Basophils % 1.0 Nucleated RBC % 0 PT with INR 20.90 H INR 1.76 H PTT (Actin FS) 35.7 Sodium 133 L Potassium 4.5 Chloride 99 Carbon Dioxide 23 Anion Gap 11 BUN 13 Creatinine 0.8 Creat Clearance w eGFR > 60 Random Glucose 80 Calcium 8.6 Total Bilirubin 4.1 H AST 68 H ALT 24 Alkaline Phosphatase 140 H Total Protein 6.9 Albumin 2.8 L Lipase 264 Urine Color Urine Appearance Urine pH Ur Specific [place] Urine Protein Urine Glucose (UA) Urine Ketones Urine Blood Urine Nitrite Urine Bilirubin Urine Urobilinogen Ur Leukocyte Esterase Urine WBC (Auto) Urine RBC (Auto) Ur Epithelial Cells Hyaline Casts 08/15/18 15:20 WBC RBC Hgb Hct MCV MCH MCHC RDW Plt Count MPV Absolute Neuts (auto) Neutrophils % Lymphocytes % Monocytes % Eosinophils % Basophils % Nucleated RBC % PT with INR INR PTT (Actin FS) Sodium Potassium Chloride Carbon Dioxide Anion Gap BUN Creatinine Creat Clearance w eGFR Random Glucose Calcium Total Bilirubin AST ALT Alkaline Phosphatase Total Protein Albumin Lipase Urine Color Zully Urine Appearance Slcloudy Urine pH 6.0 Ur Specific [place] 1.020 Urine Protein Negative Urine Glucose (UA) Negative Urine Ketones Negative Urine Blood Negative Urine Nitrite Negative Urine Bilirubin Negative Urine Urobilinogen 4.0 e.u/dl H Ur Leukocyte Esterase 1+ H Urine WBC (Auto) 31 Urine RBC (Auto) None Ur Epithelial Cells Few Hyaline Casts 1 CBC, BMP 08/15/18 14:59 08/15/18 14:59 ASSESSMENT/PLAN: 52 year old female with a hx of HTN, HLD, hypothyroidism, pancreatitis, GERD , liver cirrhosis , portal hypertensin chronic alcoholism presented to the hospital for worsening abdominal pain and was admitted after fail treatment as out pt . #ascitis 2/2 alcoholic Liver Cirrhosis, R/O SBP # portal hypertension * Ascites present as well as coagulopathy (increased INR), jaundice (t. bili elevated), and decreased albumin, * No evidence of altered mental status * MELD SCORE 21 , 3 months mortality rate is 19.6 %, * AFP * diagnostic paracentesis by IR - did not receive while in ED * once paracentesis is performed, can calculate SAAG and send culture + cell count * r/o spontaneous bacterial peritonitis - at the moment, start empiric ceftriaxone 1gm QD * US liver to further assess status of liver * trial of lasix 40mg for diuresing the abdominal fluid , * Ammonia level * lactulose PO 20 mg TID * LA * GI consult Dr. whitmore appreciated for possible EGD to R/O varices * low sodium diet * FOBT * HIV / hep panel # Thrombocytopenia2/2 liver cirrhosis chronic alcoholism * plt 82 * no active bleeding * monitor CBC #Chronic Alcoholism: * last drink one month ago * AsT> ALT 2:1 * urine tox * Hep panel * Alcohol level * urine tox # Macroctic anemia likely due to alcoholism and liver cirrhosis * H/H 08/03 * MCV 103 * B12 , folic acid level ,and treatment * #Hypothyroidism * continue synthroid 100mcg daily #Depression/Anxiety * continue fluoxetine 20mg PO daily #FEN * F: No standing fluids * E: monitor * N: low sodium diet #Prophylaxis * DVTs: Scds both legs #Disposition * Admit to med-surg Visit type - Emergency Visit Emergency Visit: Yes ED Registration Date: 08/15/18 Care time: The patient presented to the Emergency Department on the above date and was hospitalized for further evaluation of their emergent condition. - New Patient This patient is new to me today: Yes Date on this admission: 08/15/18 - Critical Care Critical Care patient: No
[2018-08-15] MEDS ORDERED: LACTULOSE 20 GM/30 ML UDC (FOR ORAL USE ONLY) PO PRN (18:15)
--- NOTE | 2018-08-15 18:15 | PN ---
Teaching Attending Note Name of Resident: Moody Bruno ATTENDING PHYSICIAN STATEMENT I saw and evaluated the patient. I reviewed the resident's note and discussed the case with the resident. I agree with the resident's findings and plan as documented. SUBJECTIVE: OBJECTIVE: AAOX3 s1 and S2 rrr abdomen tense distended tender to deep palpation, shifting dullness lungs CTA good air entry PERRLA ASSESSMENT AND PLAN: this is a 53 y/o f with hx of ESLD presented to the ED with abdominal distention and pain, the patient stated that it has been worsening over the past week, she denied fever chills, SOB, stating she can walk 6miles, she has not drank alcohol in over a month. she is attending the shinto and AA meeting to help her stay on tract trying to stay healthy. plan: admit patient consult GI consult IR for paracentesis prophylactic treatment for SBP with ceftriaxone 1g daily c/w furosemide c/w spironolactone lactulose 30cc per day for good bowel movement avoid hepato-toxic medication
[2018-08-15] MEDS ORDERED: MELOXICAM PO SCH (18:30)
[2018-08-15] MEDS ORDERED: CEFTRIAXONE 1 GM/50 ML BAG ONE (19:10)
[2018-08-15] MEDS: CEFTRIAXONE 1 GM in DEXTROSE 5%-WATER - 50 ML IVPB SCH (19:18)
[2018-08-15] MEDS ORDERED: FUROSEMIDE 40 MG/4 ML INJECTABLE VIAL IVPUSH ONE (20:00)
[2018-08-15] MEDS ORDERED: oxyCODONE HCL 5 MG TABLET PO ONE (20:53)
[2018-08-15] MEDS: oxyCODONE HCL 5 MG TABLET PO PRN (22:38)
[2018-08-15 23:16] VITALS: BMI 22.7
[2018-08-16] MEDS: LEVOTHYROXINE NA 100 MCG TABLET (FP) PO SCH (06:18)
[2018-08-16 07:47] LABS: BASO % 1.3 % (0-2.0); HEMATOCRIT 28.2 % (32.4-45.2); HEMOGLOBIN 9.6 GM/dL (10.7-15.3); LYMPH % 19.6 % (8-40); MCH 37.8 pg (25.7-33.7); MCHC 33.9 g/dl (32.0-36.0); MEAN CELL VOLUME 111.4 fl (80-96); MEAN PLT VOLUME 10.5 fl (7.5-11.1); MONO % 9.2 % (3.8-10.2); NEUT % 66.9 % (42.8-82.8); PLATELET COUNT 89 K/MM3 (134-434); RBC 2.53 M/mm3 (3.60-5.2); RDW 14.1 % (11.6-15.6); WHITE BLOOD COUNT 4.2 K/mm3 (4.0-10.0)
[2018-08-16 08:05] LABS: INR 1.77 (0.83-1.09)
[2018-08-16] MEDS: oxyCODONE HCL 5 MG TABLET PO PRN ×3 (08:05→21:59)
[2018-08-16 08:08] LABS: ACTIVATED PTT 36.4 SECONDS (25.2-36.5)
[2018-08-16 08:36] LABS: ALBUMIN 2.7 g/dl (3.4-5.0); ALK PHOS 108 U/L (45-117); ANION GAP 11 MMOL/L (8-16); BILIRUBIN,TOTAL 3.8 mg/dL (0.2-1); BLOOD UREA NITROGEN 14 mg/dL (7-18); CALCIUM 7.6 mg/dL (8.5-10.1); CHLORIDE 99 mmol/L (98-107); CO2 25 mmol/L (21-32); CREATININE 0.9 mg/dL (0.55-1.3); GLUCOSE,RANDOM 69 mg/dL (74-106); MAGNESIUM 1.1 mg/dL (1.8-2.4); PHOSPHOROUS 4.9 mg/dL (2.5-4.9); POTASSIUM 3.8 mmol/L (3.5-5.1); SGOT/AST 65 U/L (15-37); SGPT/ALT 21 U/L (13-61); SODIUM 134 mmol/L (136-145); TOT PROT 6.5 g/dl (6.4-8.2)
[2018-08-16] MEDS ORDERED: DEXTROSE 5%-WATER - 50 ML IVPB ONE ×2 (09:20→09:21)
[2018-08-16] MEDS ORDERED: cefTRIAXone SODIUM 1 GM VIAL ONE ×2 (09:20→09:21)
[2018-08-16] MEDS: FLUoxetine HCL 20 MG CAPSULE (FP) PO SCH (09:22)
[2018-08-16] MEDS: FOLIC ACID 1 MG TABLET (FP) PO SCH (09:22)
[2018-08-16] MEDS: THIAMINE HCL 100 MG TABLET (FP) PO SCH (09:22)
[2018-08-16] MEDS: MULTIVITAMINS (DAILY MVI) TABLET (FP) PO SCH (09:22)
[2018-08-16] MEDS: CEFTRIAXONE 1 GM in DEXTROSE 5%-WATER - 50 ML IVPB SCH (09:22)
--- NOTE | 2018-08-16 10:19 | PN ---
Progress Note (short form) - Note Progress Note: SUBJECTIVE: patient is doing well with complaints of her abdominal distention, US showed liver cirrhosis with acetic fluid accumulation. OBJECTIVE: AAOX3 s1 and S2 rrr abdomen tense distended tender to deep palpation, shifting dullness lungs CTA good air entry PERRLA ASSESSMENT AND PLAN: this is a 53 y/o f with hx of ESLD presented to the ED with abdominal distention and pain, the patient stated that it has been worsening over the past week, she denied fever chills, SOB, stating she can walk 6miles, she has not drank alcohol in over a month. she is attending the denominational and AA meeting to help her stay on tract trying to stay healthy. plan: #ascitis 2/2 alcoholic Liver Cirrhosis - will manage the patient with ceftrixone prophylactically - paracentisis will be done via IR guide # Acute on chronic ESLD with possible elevation in the portal hypertension * Ascites present as well as coagulopathy (increased INR), jaundice (t. bili elevated), and decreased albumin, * No evidence of altered mental status * MELD SCORE 21 , 3 months mortality rate is 19.6 %, * AFP * c/w furosemide 40mg * lactulose PO 20 mg TID * f/u with GI recommendation * low sodium diet * # Thrombocytopenia2/2 liver cirrhosis chronic alcoholism * plt 82 stable #Chronic Alcoholism: * last drink one month ago * AsT> ALT 2:1 * # Macroctic anemia likely due to vitamin B12 deficiency 2/2 chronic alcohol intake stable at this time * H/H 08/03 * MCV 103 * B12 , folic acid level ,and treatment * #Hypothyroidism * continue levothyroxine 100mcg daily
[2018-08-16 16:11] LABS: COCAINE, UR NEGATIVE ng/ml (CUTOFF=300); METHADONE, UR NEGATIVE ng/ml (CUTOFF=300); PHENCYCLIDINE,URINE NEGATIVE ng/ml (CUTOFF=25); URINE AMPHETAMINES NEGATIVE ng/ml (CUTOFF=500); URINE BARBITURATES NEGATIVE ng/ml (CUTOFF=200); URINE BENZODIAZEPINES NEGATIVE ng/ml (CUTOFF=200)
[2018-08-16 16:15] LABS: OPIATES, URI POSITIVE ng/ml (CUTOFF=300)
[2018-08-16] MEDS ORDERED: FUROSEMIDE 40 MG TABLET (FP) PO SCH (16:45)
--- NOTE | 2018-08-16 19:02 | EKG ---
Test Reason : Blood Pressure : / mmHG Vent. Rate : 081 BPM Atrial Rate : 081 BPM P-R Int : 124 ms QRS Dur : 082 ms QT Int : 404 ms P-R-T Axes : 074 019 047 degrees QTc Int : 469 ms NORMAL SINUS RHYTHM WHEN COMPARED WITH ECG OF 02-AUG-2018 13:57, NO SIGNIFICANT CHANGE WAS FOUND Confirmed by ANNALEE PASTOR MD ([id number]) on 08/16/2018 7:01:32 PM Referred By: Confirmed By:ANNALEE PASTOR MD
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
[2018-08-16] MEDS ORDERED: LACTULOSE 20 GM/30 ML UDC (FOR ORAL USE ONLY) PO ONE (21:45)
[2018-08-17] MEDS: LEVOTHYROXINE NA 100 MCG TABLET (FP) PO SCH (06:13)
[2018-08-17] MEDS: oxyCODONE HCL 5 MG TABLET PO PRN ×3 (06:16→20:06)
[2018-08-17 06:56] LABS: BASO % 0.5 % (0-2.0); EOS % 2.6 % (0-4.5); HEMATOCRIT 26.3 % (32.4-45.2); HEMOGLOBIN 8.9 GM/dL (10.7-15.3); LYMPH % 20.8 % (8-40); MCH 37.5 pg (25.7-33.7); MCHC 33.8 g/dl (32.0-36.0); MEAN CELL VOLUME 110.8 fl (80-96); MEAN PLT VOLUME 10.6 fl (7.5-11.1); MONO % 10.4 % (3.8-10.2); NEUT % 65.7 % (42.8-82.8); PLATELET COUNT 65 K/MM3 (134-434); RBC 2.37 M/mm3 (3.60-5.2); RDW 14.1 % (11.6-15.6); WHITE BLOOD COUNT 3.5 K/mm3 (4.0-10.0)
[2018-08-17 07:10] LABS: ALBUMIN 2.3 g/dl (3.4-5.0); ALK PHOS 79 U/L (45-117); ANION GAP 9 MMOL/L (8-16); BILIRUBIN,TOTAL 3.9 mg/dL (0.2-1); BLOOD UREA NITROGEN 15 mg/dL (7-18); CALCIUM 7.9 mg/dL (8.5-10.1); CHLORIDE 98 mmol/L (98-107); CO2 27 mmol/L (21-32); CREATININE 0.8 mg/dL (0.55-1.3); GLUCOSE,RANDOM 81 mg/dL (74-106); POTASSIUM 3.5 mmol/L (3.5-5.1); SGOT/AST 62 U/L (15-37); SGPT/ALT 19 U/L (13-61); SODIUM 134 mmol/L (136-145); TOT PROT 5.8 g/dl (6.4-8.2)
--- NOTE | 2018-08-17 09:04 | PN ---
Physical Exam: SUBJECTIVE: Patient seen and examined at bedside. no acute events overnight- patient is no longer complaining of abdominal pain and states her breathing is a little bit better. patient is going for a paracentesis today ; she denies any CP/SOB/N/V fevers or chills OBJECTIVE: Vital Signs Period Temp Pulse Resp BP Sys/Packer Pulse Ox Last 24 Hr 97.8 F-98.2 F 77-85 17-18 118-138/68-80 GENERAL: The patient is awake, alert, and fully oriented, in no acute distress. EYES: no scleral icterus. NECK: no JVD, no lymphadenopathy. LUNGS: CTA B/l;. no rales, rhonchi or wheezing HEART: Regular rate and rhythm, S1, S2 without murmur, rub or gallop. ABDOMEN: non-tender, tense, distended +BS, dullness to percussion, + fluid wave shift . EXTREMITIES: 2+ pulses, warm, well-perfused, no edema. . PSYCH: Normal mood, normal affect. SKIN: Warm, dry, normal turgor, no rashes or lesions noted Laboratory Results - last 24 hr 08/16/18 08/17/18 08/17/18 14:50 06:30 06:30 WBC 3.5 L RBC 2.37 L Hgb 8.9 L Hct 26.3 L MCV 110.8 H MCH 37.5 H MCHC 33.8 RDW 14.1 Plt Count 65 L D MPV 10.6 Absolute Neuts (auto) 2.3 Neutrophils % 65.7 Lymphocytes % 20.8 Monocytes % 10.4 H Eosinophils % 2.6 Basophils % 0.5 Nucleated RBC % 0 PTT (Actin FS) 36.5 Sodium Potassium Chloride Carbon Dioxide Anion Gap BUN Creatinine Creat Clearance w eGFR Random Glucose Calcium Total Bilirubin AST ALT Alkaline Phosphatase Total Protein Albumin Opiates Screen Positive A* Methadone Screen Negative Barbiturate Screen Negative Phencyclidine Screen Negative Ur Amphetamines Screen Negative MDMA (Ecstasy) Screen Negative Benzodiazepines Screen Negative Cocaine Screen Negative U Marijuana (THC) Screen Negative 08/17/18 06:30 WBC RBC Hgb Hct MCV MCH MCHC RDW Plt Count MPV Absolute Neuts (auto) Neutrophils % Lymphocytes % Monocytes % Eosinophils % Basophils % Nucleated RBC % PTT (Actin FS) Sodium 134 L Potassium 3.5 Chloride 98 Carbon Dioxide 27 Anion Gap 9 BUN 15 Creatinine 0.8 Creat Clearance w eGFR > 60 Random Glucose 81 Calcium 7.9 L Total Bilirubin 3.9 H AST 62 H ALT 19 Alkaline Phosphatase 79 Total Protein 5.8 L Albumin 2.3 L Opiates Screen Methadone Screen Barbiturate Screen Phencyclidine Screen Ur Amphetamines Screen MDMA (Ecstasy) Screen Benzodiazepines Screen Cocaine Screen U Marijuana (THC) Screen Active Medications Generic Name Dose Route Start Last Admin Trade Name Freq PRN Reason Stop Dose Admin Albumin Human 12.5 gm 08/17/18 10:00 Albumin Human 25% IVPB 08/17/18 11:01 Q30M ANDREW Fluoxetine HCl 20 mg 08/16/18 10:00 08/16/18 09:22 Prozac - PO 20 mg DAILY ANDREW Administration Folic Acid 1 mg 08/16/18 10:00 08/16/18 09:22 Folic Acid - PO 1 mg DAILY ANDREW Administration Furosemide 20 mg 08/18/18 10:00 Lasix - PO DAILY ANDREW Ceftriaxone Sodium 1 gm/ 50 mls @ 100 mls/hr 08/15/18 18:45 08/16/18 09:22 Dextrose IVPB 100 mls/hr DAILY ANDREW Administration Protocol Levothyroxine Sodium 100 mcg 08/16/18 07:00 08/17/18 06:13 Synthroid - PO 100 mcg DAILY@0700 ANDREW Administration Multivitamins/Minerals/Vitamin C 1 tab 08/16/18 10:00 08/16/18 09:22 Tab-A-Vit - PO 1 tab DAILY ANDREW Administration Oxycodone HCl 15 mg 08/15/18 22:00 08/17/18 06:16 Roxicodone - PO 15 mg Q6H PRN Administration PAIN LEVEL 4 - 6 Spironolactone 100 mg 08/18/18 10:00 Aldactone - PO DAILY ANDREW Thiamine HCl 100 mg 08/16/18 10:00 08/16/18 09:22 Vitamin B1 - PO 100 mg DAILY ANDREW Administration ASSESSMENT/PLAN: 52 year old female with a hx of HTN, HLD, hypothyroidism, pancreatitis, GERD , liver cirrhosis , portal hypertension chronic alcoholism presented to the hospital for worsening abdominal pain and was admitted after fail treatment as out pt . #Ascites 2/2 alcoholic Liver Cirrhosis - will manage the patient with ceftrixone prophylactically - paracentisis will be done via IR guide today -send fluid for cell count, cytology, calculate SAAG score - Dr. Adams saw patient yesterday; reccommended spironolactone 100 daily and lasix 20 every other day -MELD SCORE 21 , 3 months mortality rate is 19.6 %, -AFP pending -Hepatitis panel pending -RUQ U/S pending # Thrombocytopenia2/2 liver cirrhosis chronic alcoholism -plt 65 -monitor for any active signs or symptoms of bleeding # Macroctic anemia likely due to chronic alcoholism -H/H 8.9/26.3 -MCV 110 -B12: elevated at 1602, Folate: 22 -monitor for signs and symptoms of blededing #Hypothyroidism -continue levothyroxine 100mcg daily F/E/N not on fluids monitor and replete electrolytes when necessary sodium restricted diet PPX: SCD's Problem List - Problems (1) Alcoholic cirrhosis Code(s): K70.30 - ALCOHOLIC CIRRHOSIS OF LIVER WITHOUT ASCITES (2) Ascites Code(s): R18.8 - OTHER ASCITES Qualifiers: Ascites type: other type Qualified Code(s): R18.8 - Other ascites Visit type - Emergency Visit Emergency Visit: Yes ED Registration Date: 08/15/18 Care time: The patient presented to the Emergency Department on the above date and was hospitalized for further evaluation of their emergent condition. - New Patient This patient is new to me today: Yes Date on this admission: 08/17/18 - Critical Care Critical Care patient: No
[2018-08-17] MEDS: THIAMINE HCL 100 MG TABLET (FP) PO SCH ×2 (11:00→13:52)
[2018-08-17] MEDS: CEFTRIAXONE 1 GM in DEXTROSE 5%-WATER - 50 ML IVPB SCH ×2 (11:00→16:26)
[2018-08-17] MEDS: FLUoxetine HCL 20 MG CAPSULE (FP) PO SCH ×2 (11:00→13:52)
[2018-08-17] MEDS: MULTIVITAMINS (DAILY MVI) TABLET (FP) PO SCH ×2 (11:00→13:52)
[2018-08-17] MEDS: FOLIC ACID 1 MG TABLET (FP) PO SCH ×2 (11:00→13:52)
[2018-08-17] MEDS: ALBUMIN HUMAN 25% 12.5 GM/50 ML VIAL IVPB SCH ×4 (13:00→15:43)
--- NOTE | 2018-08-17 13:15 | PN ---
Teaching Attending Note Name of Resident: Hanna Laguna ATTENDING PHYSICIAN STATEMENT I saw and evaluated the patient. I reviewed the resident's note and discussed the case with the resident. I agree with the resident's findings and plan as documented. SUBJECTIVE:states she has some pain at site where paracentesis was done however her overall abdominal pain has improved. states urinary frequency and pain has improved. denies CP, SOB, fever, chills, N/V/C/D. had small BM this AM OBJECTIVE: Last Vital Signs Temp Pulse Resp BP Pulse Ox 98.0 F 80 20 112/60 96 08/17/18 15:48 08/17/18 15:48 08/17/18 15:48 08/17/18 15:48 08/17/18 13:39 General NAD HEENT anicteric CV S1 S2 RRR no murmur/rub/gallop Lungs CTA B/L no wheezing/rales/rhonchi Abdomen soft, slightly distended normoactive BS. RLQ with bandage with dried blood. slightly tender ASSESSMENT AND PLAN: 53 y/o f with hx of ESLD presented to the ED with abdominal distention and pain , the patient stated that it has been worsening over the past week, she denied fever chills, SOB, stating she can walk 6miles, she has not drank alcohol in over a month. she is attending the [employer] and AA meeting to help her stay on tract trying to stay healthy. 1. Abdominal pain-due to significant ascites. low concern for SBP (no signs of infection, no encephalopahty, no bleeding). appears to have had paracentesis done in february earlier this year which pt does not recall. s/p paracentesis with 3L volume removal. albumin currently being given. will f/u for signs of infetion 2. UTI- started on ceftriaxone f/u cx 4. Chronic ESLD_MELD 21, Child Trevino A. recently started on lasix/spirolactone. will cont will need close monitoring with GI as outpatient. has been sober for 1 month. encouraged sobriety 5. Thrombocytopenia- due to Cirrhosis. stable. no signs of bleeding 6. Remote ETOH abuse- has been sober 1 month. encourage sobriety. AA meetings. 7. Macrocytic anemia- no signs of bleeding. stable 8. depression- prozac 9. hypothyroid- LT4 10. possible d/c tomorrow as long as tap is shown to be negative for infection. pt has appt with PMD, Dr Hutchison, tomorrow.
[2018-08-17] MEDS ORDERED: cefTRIAXone SODIUM 1 GM VIAL ONE (13:45)
[2018-08-17] MEDS ORDERED: DEXTROSE 5%-WATER - 50 ML IVPB ONE (13:46)
[2018-08-17 16:22] LABS: HEP A AB, IGM Negative (Negative)
[2018-08-17 16:55] LABS: PERITONEAL RBC 385 /mm3
[2018-08-17 18:31] LABS: PERITONEAL FLUID LYMPHOCYTE 41 %; PERITONEAL FLUID MACROPHAGE 16 %; PERITONEAL FLUID MONOCYTE 41 %; PERITONEAL FLUID NEUTROPHIL 2 %
[2018-08-17 20:12] LABS: PERITONEAL FLUID MESOTHELIAL 5 %
[2018-08-18 00:07] LABS: HEP B CORE AB, IGM Negative (Negative); HEP B CORE AB, TOT Negative (Negative)
[2018-08-18] MEDS: oxyCODONE HCL 5 MG TABLET PO PRN ×2 (02:03→08:44)
[2018-08-18] MEDS: LEVOTHYROXINE NA 100 MCG TABLET (FP) PO SCH (06:23)
[2018-08-18] MEDS ORDERED: INSULIN (NOVOLOG) ASPART 100 UNITS/ML 10ML VIAL ONE (07:03)
[2018-08-18] MEDS ORDERED: INSULIN (LEVEMIR) 100 UNITS/ML UNITS SQ ONE (07:03)
[2018-08-18 08:47] VITALS: TEMP 98.4
[2018-08-18] MEDS ORDERED: PT OWN MED DRAWER 7, Y5N ONE (09:22)
[2018-08-18] MEDS ORDERED: cefTRIAXone SODIUM 1 GM VIAL ONE (09:22)
[2018-08-18] MEDS ORDERED: DEXTROSE 5%-WATER - 50 ML IVPB ONE (09:22)
[2018-08-18 09:49] VITALS: BP 110/70; PULSE 84
[2018-08-18] MEDS: MULTIVITAMINS (DAILY MVI) TABLET (FP) PO SCH (09:49)
[2018-08-18] MEDS: FLUoxetine HCL 20 MG CAPSULE (FP) PO SCH (09:49)
[2018-08-18] MEDS: FOLIC ACID 1 MG TABLET (FP) PO SCH (09:49)
[2018-08-18] MEDS: THIAMINE HCL 100 MG TABLET (FP) PO SCH (09:49)
[2018-08-18] MEDS: CEFTRIAXONE 1 GM in DEXTROSE 5%-WATER - 50 ML IVPB SCH (09:50)
[2018-08-18] MEDS ORDERED: SPIRONOLACTONE 25 MG TABLET (FP) PO SCH (10:00)
[2018-08-18] MEDS ORDERED: FUROSEMIDE 20 MG TABLET (FP) PO SCH (10:00)
--- NOTE | 2018-08-18 10:38 | PN ---
Teaching Attending Note Name of Resident: Hanna aLguna ATTENDING PHYSICIAN STATEMENT I saw and evaluated the patient. I reviewed the resident's note and discussed the case with the resident. I agree with the resident's findings and plan as documented. SUBJECTIVE:abdominal pain has mostly resolved. slight tenderness at puncture site. breathing has improved. denies Cp, SOB, fever, chills, N/V/C/d OBJECTIVE: Last Vital Signs Temp Pulse Resp BP Pulse Ox 98.4 F 84 20 110/70 97 08/18/18 08:40 08/18/18 09:44 08/18/18 09:44 08/18/18 09:44 08/17/18 21:00 General NAD Abdomen soft, normoactive BS. RLQ with bandage c/d/i. slightly tender ASSESSMENT AND PLAN: 53 y/o f with hx of ESLD presented to the ED with abdominal distention and pain , the patient stated that it has been worsening over the past week, she denied fever chills, SOB, stating she can walk 6miles, she has not drank alcohol in over a month. she is attending the [employer] and AA meeting to help her stay on tract trying to stay healthy. 1. Abdominal pain-due to significant ascites. s/p paracentesis 08/17 by IR with 3L removal. negative for SBP. optimize cirrhosis treatment iwth spirolactone and lasix. encourage liver diet and follow up with GI. 2. UTI- on ceftriaxone day 4. will d/c on keflex to complete 7 days 3. Chronic ESLD_MELD 21, Child Trevino A. recently started on lasix/spirolactone. will cont will need close monitoring with GI as outpatient. has been sober for 1 month. encouraged sobriety 4. Thrombocytopenia- due to Cirrhosis. stable. no signs of bleeding 5. Remote ETOH abuse- has been sober 1 month. encourage sobriety. AA meetings. 6. Macrocytic anemia- no signs of bleeding. stable 7. depression- prozac 8. hypothyroid- LT4 9. d/c home. stressed importance of follow up and compliance
--- NOTE | 2018-08-18 12:58 | DS ---
Physical Exam: SUBJECTIVE: Patient seen and examined at bedside. no acute events overnight- patient got her paracentesis yesterday and 3L of ascites was drained from her abdomen. she feels that her breathing is much better but she is feeling sore from the procedure yesterday. she denies any CP/SOB/N/V fevers or chills. OBJECTIVE: Vital Signs Period Temp Pulse Resp BP Sys/Packer Pulse Ox Last 24 Hr 97.9 F-98.4 F 70-87 19-20 106-133/60-72 96-97 PHYSICAL EXAM GENERAL: The patient is awake, alert, and fully oriented, in no acute distress. EYES: no scleral icterus. NECK: no JVD, no lymphadenopathy LUNGS: CTA B/L; no rales, rhonchi or wheezing HEART: Regular rate and rhythm, S1, S2 without murmur, rub or gallop. ABDOMEN: tense; distended +BS in all 4 quadrants, non-tender EXTREMITIES: 2+ pulses, warm, well-perfused, no edema. PSYCH: Normal mood, normal affect. SKIN: Warm, dry, normal turgor, no rashes or lesions noted. LABS Laboratory Results - last 24 hr 08/16/18 08/16/18 08/16/18 06:55 06:55 06:55 Tumor Marker AFP 4.4 Peritoneal WBC Peritoneal RBC Periton Neutrophils Periton Lymphocytes Peritoneal Monocytes Periton Mesothelial Periton Macrophages Hep A IgM Ab Confirm Negative Hepatitis A Ab Total Positive H Hep Bs Antigen Negative Hep Bs Antibody Non reactive Hep B Core Total Ab Negative Hep B Core IgM Ab Negative Hepatitis Be Antibody Negative Hepatitis Be Antigen Negative HIV 1&2 Ag/Ab, 4th Gen Non reactive 08/17/18 13:00 Tumor Marker AFP Peritoneal WBC 87 Peritoneal RBC 385 Periton Neutrophils 2 Periton Lymphocytes 41 Peritoneal Monocytes 41 Periton Mesothelial 5 Periton Macrophages 16 Hep A IgM Ab Confirm Hepatitis A Ab Total Hep Bs Antigen Hep Bs Antibody Hep B Core Total Ab Hep B Core IgM Ab Hepatitis Be Antibody Hepatitis Be Antigen HIV 1&2 Ag/Ab, 4th Gen Microbiology 08/17/18 13:00 Ascites ALESSANDRA Preparation - Preliminary 08/17/18 13:00 Ascites Fungal Culture - Preliminary 08/17/18 13:00 Ascites Body Fluid Culture - Preliminary NO AEROBIC GROWTH, 24 HRS 08/17/18 13:00 Ascites AFB Smear Concentration - Preliminary 08/17/18 13:00 Ascites Mycobacterial Culture - Preliminary 08/15/18 15:20 Urine - Urine Clean Catch Urine Culture - Final Contaminated: Please Repeat Imaging: abdomen/pelvis CT Impression: Hepatic cirrhosis is again noted with associated splenomegaly. Ascites is again seen which is probably large in volume. Possible cholelithiasis. The common bile duct is mildly dilated without obvious interval change. HOSPITAL COURSE: Date of Admission:08/15/18 53 y/o female with PMH of HTN, HLD, GERD, cirrhosis, pancreatitis, portal hypertension, chronic alcoholism who presented to the hospital for worsening abdominal pain secondary to her ascites from cirrhosis. Upon arrival to the ED her vitals were stable; she had a normal WBC count however she has chronic thrombocytopenia from her chronic alcoholism- her platelets on arrival was 82. Her AST:ALT ratio was 2:1. Abdominal/pelvic CT imaging was done with results shown above- Dr Adams from GI was consulted and started her on spironolactone 100 daily in addition to lasix 20 every other day and felt she would benefit from paracentesis. She was also started on Ceftriaxone 1 gram from SBP prophylaxis. Patietn underwent IR guided paracentesis and 3L of fluid was removed: peritoneal cultures showed: WBC 87, RBC 385, neutrophils 2, and the rest were pending. patient was stable enough to be discharged home on those medications and was told to have strict follow up with GI. Date of Discharge: 08/18/18 Minutes to complete discharge: 39 Discharge Summary Reason For Visit: ABDOMINAL PAIN,ASCITES Condition: Stable - Instructions Diet, Activity, Other Instructions: You came to the emergency room with complaints of abdominal pain, distention, and shortness of breath likely secondary to your abdominal ascites. We had a tool storage attendant, Dr. Adams, come and evaluate you. He felt you would benefit from getting the fluid drained - you underwent a procedure which drained 3L of fluid from your abdomen. In addition, he started you on two medications- one is a potassium channel inhibitor called spironolactone 100mg daily in addition to a water pill, lasix 20mg every day. Once the fluid was removed, your breathing and pain improved. This was negative for infection. You were also seen to have a urinary tract infection. Continue antibiotics until completed. even if your symptoms resolve. Please resume all of your home medications in addition: -please take spironolactone 100mg daily -please take lasix 20mg every day -please take the antibiotic, keflex 500mg daily starting tomorrow for three days Referrals: -we advise that you follow up with your primary care physician, Dr Hutchison in one week -we advise that you follow up with Dr. Adams, the tool storage attendant in one to two weeks *if you begin to experience any chest pain, shortness of breath, abdominal pain , nausea/vomiting fevers please return to the emergency room immediately Follow this recommended Liver diet: eliminate all alcohol eliminate most saturated fat and no red meat eliminate all non skim dairy products eliminate trans-fat and all hydrogenated oils eliminate all high fructose corn syrup eliminate most sodium -- the goal 1,500 mg of salt. eliminate all added dietary sugar eliminate processed grains, no white flour or white rice Avoid most products hustled by the supplement industry Make sure that any medications you take are not harming your liverFor oil get 60 ml, that's 1/4 cup, a day of extra virgin olive oil Take one tablespoon per day of refined fish or salmon oil Don't buy prepared foods without reading the label, there isn't actually much that you can buy Eat lots of fruits and vegetables but remember the salt limit Learn to like kale, ferrer beans, brussel sprouts, etc. Look for fiber like whole wheat bread no white breads and use brown rice Eat fatty fish like salmon at least a few times a week Eat skinless chicken or turkey and lean pork, fresh pork not processed like ham Explore new foods like quinoa as a grain Eat plenty of vegetable protein like beans. Take 400 mg to 800 mg of vitamin E Drink 3 to 4 cups of paper filtered coffee daily Be aware that eating out is tough as very little of it is good for you Take 4 gm of BCAA in a vegetable smoothie or water at bedtime Referrals: Matti Hutchison MD [Primary Care Provider] - 1 Week Giovanni Adams MD [Staff Physician] - 1 Week Disposition: HOME - Home Medications Comprehensive Discharge Medication List: Ambulatory Orders Fluoxetine HCl 20 mg PO DAILY capsule 04/03/17 Levothyroxine [Synthroid -] 100 mcg PO DAILY 01/08/18 Oxycodone HCl 15 mg PO QID 03/17/18 Meloxicam [Mobic] 1 tab PO ASDIR 08/15/18 Cephalexin [Keflex] 500 mg PO DAILY 3 Days #3 capsule 08/18/18 Furosemide [Lasix -] 20 mg PO DAILY 30 Days #30 tablet 08/18/18 Spironolactone [Aldactone -] 100 mg PO DAILY 30 Days #30 tablet 08/18/18 Problem List - Problems (1) Alcoholic cirrhosis Code(s): K70.30 - ALCOHOLIC CIRRHOSIS OF LIVER WITHOUT ASCITES (2) Ascites Code(s): R18.8 - OTHER ASCITES Qualifiers: Ascites type: other type Qualified Code(s): R18.8 - Other ascites This patient is new to me today: No Emergency Visit: Yes ED Registration Date: 08/15/18 Care time: The patient presented to the Emergency Department on the above date and was hospitalized for further evaluation of their emergent condition. Critical Care patient: No - Discharge Referral Referred to [facility] Yes Physician Referral: Matti Hutchison MD (Int Med)
[2018-08-19 00:07] LABS: HBSAG SCREEN Negative (Negative); HEP A AB, IGM Negative (Negative); HEP B CORE AB, TOT Negative (Negative)
[2018-08-19 10:30] LABS: TOTAL PROTEIN,PERITONEAL FLUID 2 gm/dL
--- NOTE | 2018-08-19 18:04 | PATH ---
Cytology Non-Gynecological Report Patient Name: LEVI VILLEGAS [facility]. Rec. #: [id number] /Age/Gender: 1965 (Age: 53) / F Account: [id number] Location: [address] [place] [address]/[facility] Taken: 08/17/2018 Received: 08/17/2018 Reported: 08/19/2018 Physicians: Pedro Salazar M.D. Specimen(s) Received A: PERITONEAL FLUID RECEIVED IN 50% ALCOHOL B: PERITONEAL FLUID RECEIVED FRESH Clinical History Ascites, right lower quadrant Final Diagnosis A & B. ABDOMINAL FLUID, RIGHT LOWER QUADRANT, PARACENTESIS: SATISFACTORY FOR EVALUATION. NO MALIGNANT CELLS IDENTIFIED. MESOTHELIAL CELLS, MACROPAHGES, AND LYMPHOCYTES PRESENT. Electronically Signed Celeste Stein M.D. Gross Description A. Approximately 50 cc of yellow fluid received fixed in 50% alcohol. One cytofunnel prepared and Pap stained. One cellblock prepared. B. Approximately 2500 cc of yellow fluid received fresh. One cytofunnel prepared and Pap stained. One cellblock prepared.
== END 2018-08-18 11:38 | disposition home or self-care (01) | DRG 264 ==
LOC: JER 13:48 → JERBED 16:22 → J5S 20:03
PROVIDERS: ADMIT Internal Medicine; ATTEND Internal Medicine
PROC: 0W9G3ZX Drainage of Peritoneal Cavity, Percutaneous Approach, Diagnostic (ICD-10-PCS; principal; 2018-08-17)
DX: K70.31 Alcoholic cirrhosis of liver with ascites (principal); K76.6 Portal hypertension; D69.6 Thrombocytopenia, unspecified; N39.0 Urinary tract infection, site not specified; R16.1 Splenomegaly, not elsewhere classified; I10 Essential (primary) hypertension; F10.20 Alcohol dependence, uncomplicated; K21.9 Gastro-esophageal reflux disease without esophagitis; E78.5 Hyperlipidemia, unspecified; E03.9 Hypothyroidism, unspecified; D53.9 Nutritional anemia, unspecified; F32.9 Major depressive disorder, single episode, unspecified; F41.9 Anxiety disorder, unspecified; K80.20 Calculus of gallbladder without cholecystitis without obstruction
CPT/HCPCS: 36415; 76700-TC; 76942-TC; 80053; 80307; 81003; 81015; 82042; 82105; 82140; 82150; 82607; 82746; 82945; 83605; 83690; 83735; 84100; 84157; 85025; 85610; 85730; 86704; 86705; 86706; 86707; 86708; 87070; 87075; 87086; 87102; 87116; 87205; 87206; 87210; 87340; 87522; 87899; 88108; 88305-TC; 89051; 93005; 93010; 99283-25; P9047

== ENCOUNTER 2018-08-30 18:17 | Emergency (ER) | payer OTHER ==
[2018-08-30] MEDS ORDERED: SODIUM CHLORIDE 1,000 ML IV STA (19:13)
--- NOTE | 2018-08-30 19:18 | PDOC ---
History of Present Illness - General History Source: Patient Exam Limitations: No Limitations - History of Present Illness Initial Comments: 08/30/18 19:33 Patient is a 53 year old female, with a significant past medical history of chronic alcoholism, hypothyroidism, chronic lower back and neck pain due to herniated disks, pancreatitis, GERD, hypokalemia, hypomagnesemia, hypocalcemia, hypertension, hyperlipidemia, anxiety and depression who presented to the emergency department via EMS for alcohol intoxication. Patient states she was leaving her boyfriends house to catch the bus and cannot recall what happened immediately after. Patient was picked up by EMS and brought into the emergency room after they noticed abrasions to her chin and left hand. Unknown how much alcohol the patient had today. Patient is aware that she is in the ER and is answering questions appropriately. Patient denies any falls or trauma. Patient is not complaining of any pain, headache, neck pain, nausea or vomiting, dizziness, or lightheadedness. Allergies: NKA Past surgical history: None reported. Social history: No reported drug or cigarette use. Alcohol abuse. PCP: Dr. Hutchison, in the process of finding a new PCP <Valeri Robert - Last Filed: 08/30/18 19:36> <Ana Lacy - Last Filed: 08/31/18 04:55> - General Chief Complaint: Alcohol intoxication Stated Complaint: INTOXICATION Time Seen by Provider: 08/30/18 19:12 Past History <Valeri Robert - Last Filed: 08/30/18 19:36> - Past Medical History Anemia: Yes Asthma: No Cancer: No Cardiac Disorders: No CVA: No COPD: No CHF: No Dementia: No Diabetes: No GI Disorders: Yes (ASCITIS,ABD. PAIN, GERD, pancreatitis;ON PRILOSEC) Disorders: No HTN: Yes (NOT CURRENTLY ON MED) Hypercholesterolemia: Yes (NOT CURRENTLY ON MED--TAKEN OFF) Kidney Stones: No Liver Disease: No Psychiatric Problems: Yes (anxiety/depression) Seizures: No Thyroid Disease: Yes (HYPOTHYROIDISM- ON SYNTHROID 100 MCG) - Surgical History Abdominal Surgery: No Appendectomy: No Cardiac Surgery: No Cholecystectomy: No Lung Surgery: No Neurologic Surgery: No Orthopedic Surgery: No - Reproductive History PID: No - Suicide/Smoking/Psychosocial Hx Smoking Status: No Smoking History: Unknown if ever smoked Have you smoked in the past 12 months: No Number of Cigarettes Smoked Daily: 0 Hx Alcohol Use: Yes (ALCOHOLIC) Drug/Substance Use Hx: No Substance Use Type: Alcohol Hx Substance Use Treatment: No <Ana Lacy - Last Filed: 08/31/18 04:55> - Past Medical History Allergies/Adverse Reactions: Allergies Allergy/AdvReac Type Severity Reaction Status Date / Time No Known Allergies Allergy Verified 08/30/18 18:46 Home Medications: Ambulatory Orders Fluoxetine HCl 20 mg PO DAILY capsule 04/03/17 Levothyroxine [Synthroid -] 100 mcg PO DAILY 01/08/18 Oxycodone HCl 15 mg PO QID 03/17/18 Meloxicam [Mobic] 1 tab PO ASDIR 08/15/18 Cephalexin [Keflex] 500 mg PO DAILY 3 Days #3 capsule 08/18/18 Furosemide [Lasix -] 20 mg PO DAILY 30 Days #30 tablet 08/18/18 Spironolactone [Aldactone -] 100 mg PO DAILY 30 Days #30 tablet 08/18/18 Review of Systems - Review of Systems Able to Perform ROS?: Yes Comments:: 08/30/18 19:33 ADULT ROS GENERAL/CONSTITUTIONAL: No fever or chills. No weakness. (+) Intoxicated. HEAD, EYES, EARS, NOSE AND THROAT: No change in vision. No ear pain or discharge. No sore throat. CARDIOVASCULAR: No chest pain or shortness of breath. RESPIRATORY: No cough, wheezing, or hemoptysis. GASTROINTESTINAL: No nausea, vomiting, diarrhea or constipation. GENITOURINARY: No dysuria, frequency, or change in urination. MUSCULOSKELETAL: No joint or muscle swelling or pain. No neck or back pain. SKIN: No rash NEUROLOGIC: No headache, vertigo, loss of consciousness, or change in strength/ sensation. ENDOCRINE: No increased thirst. No abnormal weight change. HEMATOLOGIC/LYMPHATIC: No anemia, easy bleeding, or history of blood clots. ALLERGIC/IMMUNOLOGIC: No hives or skin allergy. <Valeri Robert - Last Filed: 08/30/18 19:36> *Physical Exam - Vital Signs Last Vital Signs Temp Pulse Resp BP Pulse Ox 97.4 F L 80 18 106/69 93 L 08/30/18 18:17 08/30/18 18:17 08/30/18 18:17 08/30/18 18:17 08/30/18 18:17 - Physical Exam Comments: 08/30/18 19:34 ADULT EXAM GENERAL: Awake, alert, and fully oriented, in no acute distress HEAD: No signs of trauma EYES: PERRLA, EOMI, sclera anicteric, conjunctiva clear ENT: Auricles normal inspection, hearing grossly normal, nares patent, oropharynx clear without exudates. Dry mucosa NECK: Normal ROM, supple, no lymphadenopathy, JVD, or masses LUNGS: Breath sounds equal, clear to auscultation bilaterally. No wheezes, and no crackles HEART: Regular rate and rhythm, normal S1 and S2, no murmurs, rubs or gallops ABDOMEN: Soft, nontender, normoactive bowel sounds. No guarding, no rebound. No masses EXTREMITIES: Normal range of motion, no edema. No clubbing or cyanosis. No cords, erythema, or tenderness NEUROLOGICAL: Cranial nerves II through XII grossly intact. Normal speech, normal gait SKIN: Warm, Dry, normal turgor (+) 0.5 cm superficial abrasion to the left side of the chin, not actively bleeding. (+) Scattered 2-3mm abrasions to the dorsum of the left hand, no ecchymosis, not actively bleeding. <Valeri Robert - Last Filed: 08/30/18 19:36> - Vital Signs Last Vital Signs Temp Pulse Resp BP Pulse Ox 97.4 F L 80 18 106/69 93 L 08/30/18 18:17 08/30/18 18:17 08/30/18 18:17 08/30/18 18:17 08/30/18 18:17 <Ana Lacy - Last Filed: 08/31/18 04:55> ED Treatment Course - LABORATORY CBC & Chemistry Diagram: 08/30/18 19:00 08/30/18 19:00 <Ana Lacy - Last Filed: 08/31/18 04:55> Medical Decision Making - Medical Decision Making Documentation has been prepared under my direction and personally reviewed by me in its entirety. I attest that this documented accurately reflects all work, treatment, procedures and medical decision making performed by me. As noted above, this 53-year-old woman with a long history of alcohol abuse and cirrhosis, is brought in by ambulance after EMS was called by [facility] when patient was seen to be intoxicated on street. No clear history of fall. Patient was noted on transport to have abrasions of her left hand. On presentation here, patient was initially lethargic but quickly became coherent and oriented. On evaluation, the patient was oriented 3 and had no complaints. Exam as noted above show no clear history of significant trauma and abdomen was nontender and only slightly distended.. Superficial lacerations of the left hand and left side of chin were nontender/non-edematous with no underlying bony tenderness. Patient received a liter of normal saline and 1 g of magnesium sulfate IV (for magnesium level of 1.4 mg/dL ). Blood alcohol level was 333 milligrams per deciliter. Otherwise, laboratory evaluation showed consistent level of mild anemia, decreased calcium/magnesium/albumin levels, slightly elevated transaminases/LFTs as seen during previous presentations.. Patient has been followed by Dr. Hutchison in the past but she states that she is planning on moving to [place] soon be changing doctors. After fluid hydration/magnesium sulfate supplementation, as well as observation for several hours, the patient was able to ambulate stably without evidence of significant ataxia. She continued to be oriented and without complaints. She was discharged with instructions to continue hydration orally, while taking medications as prescribed. She should follow-up with Dr. Hutchison or her new doctor within the next few days. <Ana Lacy - Last Filed: 08/31/18 04:55> *DC/Admit/Observation/Transfer - Attestations Scribe Attestion: 08/30/18 19:35 Documentation prepared by Valeri Robert, acting as medical social worker for Ana Lacy MD. <Valeri Robert - Last Filed: 08/30/18 19:36> <Ana Lacy - Last Filed: 08/31/18 04:55> Diagnosis at time of Disposition: Alcohol intoxication Qualifiers: Complication of substance-induced condition: uncomplicated Qualified Code(s): F10.920 - Alcohol use, unspecified with intoxication, uncomplicated - Discharge Dispostion Disposition: HOME Condition at time of disposition: Stable - Patient Instructions Printed Discharge Instructions: DI for Alcohol Abuse Additional Instructions: drink plenty of water continue medications as prescribed followup with your doctor within the next 2 days
[2018-08-30 19:52] LABS: BASO % 0.1 % (0-2.0); EOS % 3.6 % (0-4.5); HEMATOCRIT 30.3 % (32.4-45.2); LYMPH % 28.5 % (8-40); MCH 35.7 pg (25.7-33.7); MEAN PLT VOLUME 9.3 fl (7.5-11.1); MONO % 8.4 % (3.8-10.2); NEUT % 59.4 % (42.8-82.8); PLATELET COUNT 103 K/MM3 (134-434); RDW 13.6 % (11.6-15.6); WHITE BLOOD COUNT 5.3 K/mm3 (4.0-10.8)
[2018-08-30 20:03] VITALS: BP 106/69; PULSE 80; TEMP 97.4; BMI 25.7
[2018-08-30 20:03] LABS: ALBUMIN 2.9 g/dl (3.5-5.0); ALK PHOS 108 U/L (32-92); ANION GAP 14 MMOL/L (8-16); BLOOD UREA NITROGEN 30 mg/dl (7-18); CALCIUM 8.1 mg/dl (8.4-10.2); CHLORIDE 97 mmol/L (98-107); CO2 23 mmol/L (22-28); CREATININE 1.1 mg/dl (0.6-1.3); GLUCOSE,RANDOM 85 mg/dl (74-106); MAGNESIUM 1.4 mg/dL (1.8-2.4); POTASSIUM 3.8 mmol/L (3.5-5.1); SGOT/AST 63 U/L (10-42); SGPT/ALT 20 U/L (10-40); SODIUM 134 mmol/L (136-145); TOT PROT 6.6 g/dl (6.4-8.3)
[2018-08-30] MEDS ORDERED: MAGNESIUM SULF 50% (8.12 MEQ/2 ML-1 GM VIAL) IVPB ONE (20:32)
[2018-08-30] MEDS ORDERED: MAGNESIUM 1GM/D5W - 1 GM/100 ML IVPB IVPB ONE (20:36)
[2018-08-30 21:59] LABS: PH,URINE 6.5 (4.5-8); URINE APPEARANCE Clear; URINE BILIRUBIN Negative (NEGATIVE); URINE COLOR Yellow; URINE GLUCOSE (UA) Negative (NEGATIVE); URINE KETONE Negative (NEGATIVE); URINE LEUK ESTERASE Negative (NEGATIVE); URINE NITRITE Negative (NEGATIVE); URINE PROTEIN Negative (NEGATIVE)
--- NOTE | 2018-08-31 10:59 | EKG ---
Test Reason : Blood Pressure : / mmHG Vent. Rate : 073 BPM Atrial Rate : 073 BPM P-R Int : 132 ms QRS Dur : 084 ms QT Int : 438 ms P-R-T Axes : 078 039 055 degrees QTc Int : 482 ms SINUS RHYTHM WITH PREMATURE ATRIAL COMPLEXES POSSIBLE LEFT ATRIAL ENLARGEMENT PROLONGED QT ABNORMAL ECG WHEN COMPARED WITH ECG OF 15-AUG-2018 16:35, PREMATURE ATRIAL COMPLEXES ARE NOW PRESENT Confirmed by DARBY CASTILLO, ANNALEE ([id number]) on 08/31/2018 10:59:02 AM Referred By: MIKA JACOBO Confirmed By:ANNALEE PASTOR MD
== END 2018-08-30 23:42 | disposition home or self-care (01) ==
LOC: FER 18:17
PROC: 3E033GC Introduction of Other Therapeutic Substance into Peripheral Vein, Percutaneous Approach (ICD-10-PCS; principal; 2018-08-30)
PROC: 3E0337Z Introduction of Electrolytic and Water Balance Substance into Peripheral Vein, Percutaneous Approach (ICD-10-PCS; 2018-08-30)
DX: F10.920 Alcohol use, unspecified with intoxication, uncomplicated (principal); K74.60 Unspecified cirrhosis of liver; E03.9 Hypothyroidism, unspecified; M54.5 Low back pain; G89.29 Other chronic pain; M54.2 Cervicalgia; I10 Essential (primary) hypertension; E78.00 Pure hypercholesterolemia, unspecified; K21.9 Gastro-esophageal reflux disease without esophagitis; K85.90 Acute pancreatitis without necrosis or infection, unspecified
CPT/HCPCS: 36415; 80053; 80307; 81003; 83735; 85025; 93005; 99284-25; J7030

== ENCOUNTER 2018-09-17 10:47 | Inpatient (IN) | payer OTHER ==
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
[2018-09-17] MEDS ORDERED: KETAMINE HCL 500 MG/10 ML VIAL IV ONE (13:03)
[2018-09-17 13:13] LABS: BASO % 0.7 % (0-2.0); HEMATOCRIT 30.5 % (32.4-45.2); HEMOGLOBIN 10.5 GM/dL (10.7-15.3); LYMPH % 28.9 % (8-40); MCH 37.3 pg (25.7-33.7); MCHC 34.6 g/dl (32.0-36.0); MEAN CELL VOLUME 107.7 fl (80-96); MEAN PLT VOLUME 9.5 fl (7.5-11.1); MONO % 10.7 % (3.8-10.2); NEUT % 57.7 % (42.8-82.8); PLATELET COUNT 76 K/MM3 (134-434); RBC 2.83 M/mm3 (3.60-5.2); RDW 16.5 % (11.6-15.6); WHITE BLOOD COUNT 2.7 K/mm3 (4.0-10.0)
[2018-09-17] MEDS ORDERED: KETAMINE HCL 500 MG/10 ML VIAL ONE (13:16)
[2018-09-17 13:29] LABS: INR 1.44 (0.83-1.09)
[2018-09-17 13:32] LABS: ACTIVATED PTT 32.4 SECONDS (25.2-36.5)
[2018-09-17 13:41] LABS: ALK PHOS 124 U/L (45-117); ANION GAP 11 MMOL/L (8-16); BILIRUBIN,TOTAL 4.7 mg/dL (0.2-1); BLOOD UREA NITROGEN 12 mg/dL (7-18); CALCIUM 8.3 mg/dL (8.5-10.1); CHLORIDE 108 mmol/L (98-107); CO2 23 mmol/L (21-32); CREATININE 0.8 mg/dL (0.55-1.3); GLUCOSE,RANDOM 80 mg/dL (74-106); MAGNESIUM 1.3 mg/dL (1.8-2.4); PHOSPHOROUS 3.5 mg/dL (2.5-4.9); POTASSIUM 3.6 mmol/L (3.5-5.1); SGOT/AST 66 U/L (15-37); SGPT/ALT 19 U/L (13-61); SODIUM 142 mmol/L (136-145); TOT PROT 7.3 g/dl (6.4-8.2)
--- NOTE | 2018-09-17 14:15 | PDOC ---
Attending Attestation - Resident Resident Name: Lauryn Mccarty - ED Attending Attestation I have performed the following: I have examined & evaluated the patient, The case was reviewed & discussed with the resident, I agree w/resident's findings & plan - HPI HPI: 09/17/18 14:12 53yo woman with a PMH of chronic alcoholism, hypothyroidism, chronic lower back and neck pain due to herniated disks, pancreatitis, GERD, HTN, HLD, anxiety/ depression and ascites secondary to alcoholic cirrhosis, recently admitted in late August for abdominal distension/paracentesis, who presents with worsening abdominal distension x 1 week and back pain. poor historian, has history of continuing to drink alchohol. - Physicial Exam PE: 09/17/18 14:15 NAD, well appearing, PERRL, EOMI, MMM, nl conjunctiva, anicteric; neck supple. lungs clear, +tachy. abdomen soft nontender. LYN x4, no focal neuro deficits. No peripheral edema. normal color for ethnicity, WWP. - Medical Decision Making 09/17/18 14:14 See HPI for details Vital signs reviewed, +tachycardia, no fever Prior notes reviewed, including admissions, discharges and consultations. laboratory results and imaging reviewed, basic labs and lytes wnl, notable for baseline anemia/leukopenia.. +thrombocytopenia, c/w with prior results coags mildly elevated. UA with urobilinogen. no infection. Utox with cocaine and ethanol, EKG normal sinus rhythm, no interval abnormalities, narrow QRS, ST and T wave segments and morphology normal. Nonspecific T wave abnormalities ED course: analgesia, ketamine low dose and home oxycodone 15mg RUQ sono with large ascites and liver cirrhosis. requesting food, as she's hungry. will need admit for therapeutic paracentesis, given history and bleeding risk IV ceftriaxone for sbp ppx, GI ppx with protonix. Dispo: admit for liver cirrhosis, worsening ascites requiring tx and GI cs for therapeutic tap. 09/17/18 16:36 09/17/18 16:38 09/17/18 16:39
[2018-09-17 14:32] LABS: URINE APPEARANCE SLCLOUDY; URINE BILIRUBIN NEGATIVE (<2.0 mg/dL); URINE COLOR AMBER; URINE GLUCOSE (UA) NEGATIVE (NEGATIVE); URINE KETONE NEGATIVE (NEGATIVE); URINE LEUK ESTERASE NEGATIVE (NEGATIVE); URINE NITRITE NEGATIVE (NEGATIVE); URINE PROTEIN 1+ (NEGATIVE); URINE UROBILINOGEN 4.0 E.U/dl mg/dL (0.2-1.0)
[2018-09-17 14:46] LABS: EPI CELLS RARE /HPF (FEW); URINE MUCUS RARE
[2018-09-17 14:48] LABS: ANISOCYTOSIS 1+; MACROCYTOSIS 1+; OVALOCYTE 1+
[2018-09-17 15:06] LABS: METHADONE, UR NEGATIVE ng/ml (CUTOFF=300); OPIATES, URI NEGATIVE ng/ml (CUTOFF=300); PHENCYCLIDINE,URINE NEGATIVE ng/ml (CUTOFF=25); URINE AMPHETAMINES NEGATIVE ng/ml (CUTOFF=500); URINE BARBITURATES NEGATIVE ng/ml (CUTOFF=200); URINE BENZODIAZEPINES NEGATIVE ng/ml (CUTOFF=200)
[2018-09-17 15:08] LABS: COCAINE, UR POSITIVE ng/ml (CUTOFF=300)
[2018-09-17] MEDS ORDERED: CEFTRIAXONE 1,000 MG in DEXTROSE 5%-WATER - 50 ML IVPB ONE (16:19)
[2018-09-17] MEDS ORDERED: PANTOPRAZOLE SODIUM 40 MG VIAL IVPUSH ONE (16:20)
[2018-09-17] MEDS ORDERED: MAGNESIUM SULF 50% (8.12 MEQ/2 ML-1 GM VIAL) IVPB ONE (16:31)
[2018-09-17] MEDS ORDERED: oxyCODONE HCL 5 MG TABLET PO ONE (16:36)
[2018-09-17] MEDS ORDERED: oxyCODONE HCL 5 MG TABLET ONE (17:02)
[2018-09-17] MEDS ORDERED: PANTOPRAZOLE SODIUM 40 MG VIAL ONE (17:03)
[2018-09-17] MEDS ORDERED: CEFTRIAXONE 1 GM/50 ML BAG ONE (17:03)
[2018-09-17] MEDS ORDERED: MAGNESIUM 1GM/D5W - 2 GM/200 ML IVPB IVPB ONE (17:03)
[2018-09-17] MEDS ORDERED: MELOXICAM PO SCH (17:30)
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
[2018-09-17 20:55] VITALS: BMI 25.8
[2018-09-17] MEDS: oxyCODONE HCL 5 MG TABLET PO SCH ×2 (20:58→22:13)
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
[2018-09-18 06:56] LABS: HEMATOCRIT 28.5 % (32.4-45.2); HEMOGLOBIN 9.3 GM/dL (10.7-15.3); MCH 35.4 pg (25.7-33.7); MCHC 32.6 g/dl (32.0-36.0); MEAN CELL VOLUME 108.8 fl (80-96); MEAN PLT VOLUME 10.1 fl (7.5-11.1); PLATELET COUNT 64 K/MM3 (134-434); RBC 2.62 M/mm3 (3.60-5.2); RDW 16.4 % (11.6-15.6); WHITE BLOOD COUNT 2.8 K/mm3 (4.0-10.0)
[2018-09-18] MEDS: LEVOTHYROXINE NA 100 MCG TABLET (FP) PO SCH (06:56)
[2018-09-18 07:28] LABS: ALBUMIN 2.6 g/dl (3.4-5.0); ALK PHOS 89 U/L (45-117); ANION GAP 10 MMOL/L (8-16); BILIRUBIN,TOTAL 4.6 mg/dL (0.2-1); BLOOD UREA NITROGEN 13 mg/dL (7-18); CALCIUM 7.5 mg/dL (8.5-10.1); CHLORIDE 106 mmol/L (98-107); CO2 23 mmol/L (21-32); CREATININE 0.8 mg/dL (0.55-1.3); GLUCOSE,RANDOM 104 mg/dL (74-106); MAGNESIUM 1.6 mg/dL (1.8-2.4); PHOSPHOROUS 3.5 mg/dL (2.5-4.9); POTASSIUM 3.5 mmol/L (3.5-5.1); SGOT/AST 51 U/L (15-37); SGPT/ALT 16 U/L (13-61); SODIUM 139 mmol/L (136-145); TOT PROT 6.1 g/dl (6.4-8.2)
[2018-09-18] MEDS: oxyCODONE HCL 5 MG TABLET PO SCH ×4 (09:16→22:06)
[2018-09-18] MEDS: SPIRONOLACTONE 25 MG TABLET (FP) PO SCH (09:16)
[2018-09-18] MEDS: FLUoxetine HCL 20 MG CAPSULE (FP) PO SCH (09:17)
[2018-09-18] MEDS ORDERED: FUROSEMIDE 20 MG TABLET (FP) PO SCH (10:00)
--- NOTE | 2018-09-18 10:15 | EKG ---
Test Reason : Blood Pressure : / mmHG Vent. Rate : 103 BPM Atrial Rate : 103 BPM P-R Int : 122 ms QRS Dur : 068 ms QT Int : 368 ms P-R-T Axes : 072 010 018 degrees QTc Int : 482 ms SINUS TACHYCARDIA WITH OCCASIONAL PREMATURE VENTRICULAR COMPLEXES POSSIBLE LEFT ATRIAL ENLARGEMENT BORDERLINE ECG WHEN COMPARED WITH ECG OF 30-AUG-2018 21:08, PREMATURE VENTRICULAR COMPLEXES ARE NOW PRESENT PREMATURE ATRIAL COMPLEXES ARE NO LONGER PRESENT Confirmed by CANDE CASTILLO, SOREN ([id number]) on 09/18/2018 10:15:23 AM Referred By: Confirmed By:SOREN CASTELLON MD
[2018-09-18] MEDS ORDERED: MAGNESIUM SULF 50% (8.12 MEQ/2 ML-1 GM VIAL) IVPB ONE (12:01)
--- NOTE | 2018-09-18 12:49 | PN ---
Physical Exam: SUBJECTIVE: Patient seen and examined. Had paracentesis today. 6 L removed. Patient reports she feels much better and is hungry. Patient eager to be d/roque by Friday as she has an interview for permanent housing she does not want to miss. OBJECTIVE: Vital Signs Period Temp Pulse Resp BP Sys/Pakcer Pulse Ox Last 24 Hr 97.3 F-98.7 F 94-114 18-23 137-157/73-100 100-100 GENERAL: Awake, alert, and fully oriented, in no acute distress. HEAD: Normal with no signs of trauma. EYES: Sclera icteric b/l, pupils equal, round and reactive to light, extraocular movements intact, conjunctiva clear. No lid lag. EARS, NOSE, THROAT: Nares patent, oropharynx clear without exudates. Moist mucous membranes. NECK: Normal range of motion, supple without lymphadenopathy, JVD, or masses. LUNGS: Breath sounds equal, clear to auscultation bilaterally. No wheezes, and no crackles. No accessory muscle use. HEART: Rapid rate and regular rhythm, normal S1 and S2 without murmur, rub or gallop. ABDOMEN: Less distended, slightly TTP, normoactive bowel sounds MUSCULOSKELETAL: Normal range of motion at all joints. No bony deformities or tenderness. No CVA tenderness. UPPER EXTREMITIES: 2+ pulses, warm, well-perfused. No cyanosis. No clubbing. No peripheral edema. LOWER EXTREMITIES: Trace edema to BLE, 2+ pulses, warm, well-perfused. No calf tenderness. NEUROLOGICAL: No facial droop, tongue midline, normal speech PSYCHIATRIC: Cooperate, pleasant, good eye contact SKIN: Warm, dry, normal turgor, no rashes or lesions noted, normal capillary refill. Laboratory Results - last 24 hr 09/17/18 09/17/18 09/17/18 11:49 11:49 11:49 WBC 2.7 L RBC 2.83 L Hgb 10.5 L Hct 30.5 L D MCV 107.7 H MCH 37.3 H MCHC 34.6 RDW 16.5 H Plt Count 76 L MPV 9.5 D Absolute Neuts (auto) 1.5 Neutrophils % 57.7 Lymphocytes % 28.9 D Monocytes % 10.7 H Eosinophils % 2.0 Basophils % 0.7 Nucleated RBC % 0 Anisocytosis 1+ Macrocytosis 1+ Ovalocytes 1+ PT with INR 17.00 H INR 1.44 H PTT (Actin FS) 32.4 Sodium 142 Potassium 3.6 Chloride 108 H Carbon Dioxide 23 Anion Gap 11 BUN 12 Creatinine 0.8 Creat Clearance w eGFR > 60 Random Glucose 80 Calcium 8.3 L Phosphorus 3.5 Magnesium 1.3 L Total Bilirubin 4.7 H AST 66 H ALT 19 Alkaline Phosphatase 124 H Ammonia Total Protein 7.3 Albumin 3.0 L Urine Color Urine Appearance Urine pH Ur Specific [place] Urine Protein Urine Glucose (UA) Urine Ketones Urine Blood Urine Nitrite Urine Bilirubin Urine Urobilinogen Ur Leukocyte Esterase Urine WBC (Auto) Urine RBC (Auto) Ur Epithelial Cells Urine Mucus Opiates Screen Methadone Screen Barbiturate Screen Phencyclidine Screen Ur Amphetamines Screen MDMA (Ecstasy) Screen Benzodiazepines Screen Cocaine Screen U Marijuana (THC) Screen Alcohol, Quantitative 57.8 H 09/17/18 09/17/18 09/17/18 11:49 13:20 13:20 WBC RBC Hgb Hct MCV MCH MCHC RDW Plt Count MPV Absolute Neuts (auto) Neutrophils % Lymphocytes % Monocytes % Eosinophils % Basophils % Nucleated RBC % Anisocytosis Macrocytosis Ovalocytes PT with INR INR PTT (Actin FS) Sodium Potassium Chloride Carbon Dioxide Anion Gap BUN Creatinine Creat Clearance w eGFR Random Glucose Calcium Phosphorus Magnesium Total Bilirubin AST ALT Alkaline Phosphatase Ammonia 30.49 Total Protein Albumin Urine Color Zully Urine Appearance Slcloudy Urine pH 5.0 Ur Specific [place] 1.025 Urine Protein 1+ H Urine Glucose (UA) Negative Urine Ketones Negative Urine Blood Negative Urine Nitrite Negative Urine Bilirubin Negative Urine Urobilinogen 4.0 e.u/dl H Ur Leukocyte Esterase Negative Urine WBC (Auto) 3 Urine RBC (Auto) <1 Ur Epithelial Cells Rare Urine Mucus Rare Opiates Screen Negative Methadone Screen Negative Barbiturate Screen Negative Phencyclidine Screen Negative Ur Amphetamines Screen Negative MDMA (Ecstasy) Screen Negative Benzodiazepines Screen Negative Cocaine Screen Positive A* U Marijuana (THC) Screen Negative Alcohol, Quantitative 09/18/18 09/18/18 06:00 06:00 WBC 2.8 L RBC 2.62 L Hgb 9.3 L Hct 28.5 L MCV 108.8 H MCH 35.4 H MCHC 32.6 RDW 16.4 H Plt Count 64 L MPV 10.1 Absolute Neuts (auto) Neutrophils % Lymphocytes % Monocytes % Eosinophils % Basophils % Nucleated RBC % Anisocytosis Macrocytosis Ovalocytes PT with INR INR PTT (Actin FS) Sodium 139 Potassium 3.5 Chloride 106 Carbon Dioxide 23 Anion Gap 10 BUN 13 Creatinine 0.8 Creat Clearance w eGFR > 60 Random Glucose 104 Calcium 7.5 L Phosphorus 3.5 Magnesium 1.6 L Total Bilirubin 4.6 H AST 51 H ALT 16 Alkaline Phosphatase 89 Ammonia Total Protein 6.1 L Albumin 2.6 L Urine Color Urine Appearance Urine pH Ur Specific [place] Urine Protein Urine Glucose (UA) Urine Ketones Urine Blood Urine Nitrite Urine Bilirubin Urine Urobilinogen Ur Leukocyte Esterase Urine WBC (Auto) Urine RBC (Auto) Ur Epithelial Cells Urine Mucus Opiates Screen Methadone Screen Barbiturate Screen Phencyclidine Screen Ur Amphetamines Screen MDMA (Ecstasy) Screen Benzodiazepines Screen Cocaine Screen U Marijuana (THC) Screen Alcohol, Quantitative Active Medications Generic Name Dose Route Start Last Admin Trade Name Freq PRN Reason Stop Dose Admin Fluoxetine HCl 20 mg 09/18/18 10:00 09/18/18 09:17 Prozac - PO 20 mg DAILY ANDREW Administration Furosemide 20 mg 09/18/18 10:00 09/18/18 09:15 Lasix - PO 20 mg DAILY ANDREW Administration Levothyroxine Sodium 100 mcg 09/18/18 07:00 09/18/18 06:56 Synthroid - PO 100 mcg DAILY@0700 ANDREW Administration Oxycodone HCl 15 mg 09/17/18 18:00 09/18/18 09:16 Roxicodone - PO 15 mg QID ANDREW Administration Spironolactone 100 mg 09/18/18 10:00 09/18/18 09:16 Aldactone - PO 100 mg DAILY ANDREW Administration ASSESSMENT/PLAN: 53 year old female with a PMH significant for chronic alcoholism, ascites secondary to alcoholic cirrhosis, hypothyroidism, chronic lower back and neck pain due to herniated disks, pancreatitis, GERD, HTN, HLD, anxiety/depression presented to the ED with a distended abdomen. US positive for a large amount of ascites and hepatic cirrhosis. She was admitted for paracentesis. Ascites secondary to alcoholic cirrhosis - US positive for a large amount of ascites and hepatic cirrhosis - Paracentesis today by IR - Seen by GI specialist Dr. Crocker - Monitor for hepatorenal syndrome s/p paracentesis - Serial BMPs and LFTs. - If increased BUN/Cr, start salt poor albumen q6h to pull fluid from IVS to perfuse kidnies - Will need to observe response the response to spironolactone before starting furosemide - As she is in danger of developing hepatorenal sydrome. - AFP ordered - Will ultimately need an EGD to surveil for varices. - Seen by ID specialist to r/o SBP, no antibiotics at this time. - Lasix 20 mg PO DAILY - Spironolactone 100 mg PO DAILY - If hyperkalemic, stop taking - If ineffective, add Lasix - Consider substance abuse consult Anemia - Hgb -> 10.5 -> 9.3 - Possibly dilutional - FOB ordered - Monitor CBC Hypomagnesemia - 1.3 -> 1.6 - 2 mg MV IVP - Monitor level Substance abuse - Chronic alcoholism - U-tox +cocaine - Monitor for DTs and withdrawal symptoms, increased irritibility etc. - Addiction consult ordered HTN - Elevated, likely secondary to fluid overload - Continue Lasix and Aldactone HLD - Not currently on statin therapy Chronic lower back neck pain due to herniated disks - Oxycodone HCl 15 mg PO QID Pancreatitis - Resolved Hypothyroidism - Levothyroxine [Synthroid -] 100 mcg PO DAILY Anxiety/depression - Fluoxetine HCl 20 mg PO DAILY Prophylaxis - DVT: SCDs FEN - PO intake adequate - Replete as needed - Regular diet, NPO after midnight Disp: Patient requires inpatient treatment. Visit type - Emergency Visit Emergency Visit: No - New Patient This patient is new to me today: No - Critical Care Critical Care patient: No
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
--- NOTE | 2018-09-18 14:17 | PN ---
GI Progress Note Subjective: GI Note: Feels much better after paracentesis and has eaten without difficulty. Anxious to leave. I again explained the risk of hepatorenal syndrome following paracentesis and the need to follow her electrolytes while adjusting her diuretic dosages. Will order serial BMPs and LFTs. No signs of encephaloptahy or withdrawal. - Objective Vital Signs: Vital Signs Temperature 98.7 F 09/18/18 11:30 Pulse Rate 98 H 09/18/18 11:30 Respiratory Rate 18 09/18/18 11:30 Blood Pressure 152/92 09/18/18 11:30 O2 Sat by Pulse Oximetry (%) 97 09/18/18 09:00 CBC,CMP WBC 2.8 K/mm3 (4.0-10.0) L 09/18/18 06:00 RBC 2.62 M/mm3 (3.60-5.2) L 09/18/18 06:00 Hgb 9.3 GM/dL (10.7-15.3) L 09/18/18 06:00 Hct 28.5 % (32.4-45.2) L 09/18/18 06:00 MCV 108.8 fl (80-96) H 09/18/18 06:00 MCH 35.4 pg (25.7-33.7) H 09/18/18 06:00 MCHC 32.6 g/dl (32.0-36.0) 09/18/18 06:00 RDW 16.4 % (11.6-15.6) H 09/18/18 06:00 Plt Count 64 K/MM3 (134-434) L 09/18/18 06:00 MPV 10.1 fl (7.5-11.1) 09/18/18 06:00 Absolute Neuts (auto) 1.5 K/mm3 (1.5-8.0) 09/17/18 11:49 Neutrophils % 57.7 % (42.8-82.8) 09/17/18 11:49 Lymphocytes % 28.9 % (8-40) D 09/17/18 11:49 Monocytes % 10.7 % (3.8-10.2) H 09/17/18 11:49 Eosinophils % 2.0 % (0-4.5) 09/17/18 11:49 Basophils % 0.7 % (0-2.0) 09/17/18 11:49 Nucleated RBC % 0 % (0-0) 09/17/18 11:49 Anisocytosis 1+ 09/17/18 11:49 Macrocytosis 1+ 09/17/18 11:49 Ovalocytes 1+ 09/17/18 11:49 Sodium 139 mmol/L (136-145) 09/18/18 06:00 Potassium 3.5 mmol/L (3.5-5.1) 09/18/18 06:00 Chloride 106 mmol/L (98-107) 09/18/18 06:00 Carbon Dioxide 23 mmol/L (21-32) 09/18/18 06:00 Anion Gap 10 MMOL/L (8-16) 09/18/18 06:00 BUN 13 mg/dL (7-18) 09/18/18 06:00 Creatinine 0.8 mg/dL (0.55-1.3) 09/18/18 06:00 Creat Clearance w eGFR > 60 (>60) 09/18/18 06:00 Random Glucose 104 mg/dL (74-106) 09/18/18 06:00 Calcium 7.5 mg/dL (8.5-10.1) L 09/18/18 06:00 Phosphorus 3.5 mg/dL (2.5-4.9) 09/18/18 06:00 Magnesium 1.6 mg/dL (1.8-2.4) L 09/18/18 06:00 Total Bilirubin 4.6 mg/dL (0.2-1) H 09/18/18 06:00 AST 51 U/L (15-37) H 09/18/18 06:00 ALT 16 U/L (13-61) 09/18/18 06:00 Alkaline Phosphatase 89 U/L (45-117) 09/18/18 06:00 Ammonia 30.49 umol/L (11-32) 09/17/18 11:49 Total Protein 6.1 g/dl (6.4-8.2) L 09/18/18 06:00 Albumin 2.6 g/dl (3.4-5.0) L 09/18/18 06:00 Constitutional: Calm Eyes: Yes: Sclera Icterus Gastrointestinal Inspection: Yes: Distention (much less than yesterday) ...Auscultate: Yes: Normoactive Bowel Sounds ...Palpate: Yes: Soft, Other (nontender) Labs: CBC, BMP 09/18/18 06:00 09/18/18 06:00 INR, PTT INR 1.44 (0.83-1.09) H 09/17/18 11:49 Assessment/Plan ETOH Cirrhosis with ascites and alcoholic hepatitis causing the jaundice. Need to watch for hepatorenal syndrome and DTs Observe response to spironolactone before considering furosemide. Dr Diane will be covering this weekend. Problem List - Problems (1) Ascites Assessment/Plan: Alcoholic cirrhosis with ascites due to noncompliance with diuretics and salt restriction as well as continued alcohol abuse. Code(s): R18.8 - OTHER ASCITES (2) Hypertriglyceridemia Code(s): E78.1 - PURE HYPERGLYCERIDEMIA (3) Alcoholic cirrhosis Code(s): K70.30 - ALCOHOLIC CIRRHOSIS OF LIVER WITHOUT ASCITES (4) Alcohol abuse, continuous Assessment/Plan: No encephalopathy or signs of alcohol withdrawal but remains as risk for DTs. Code(s): F10.10 - ALCOHOL ABUSE, UNCOMPLICATED (5) Thrombocytopenia Code(s): D69.6 - THROMBOCYTOPENIA, UNSPECIFIED (6) Pancreatitis Code(s): K85.9 - ACUTE PANCREATITIS, UNSPECIFIED * DO NOT USE * Qualifiers: Chronicity: acute Pancreatitis type: alcohol induced (7) Depression Code(s): F32.9 - MAJOR DEPRESSIVE DISORDER, SINGLE EPISODE, UNSPECIFIED (8) Hypothyroidism Code(s): E03.9 - HYPOTHYROIDISM, UNSPECIFIED Qualifiers: Hypothyroidism type: unspecified Qualified Code(s): E03.9 - Hypothyroidism , unspecified
[2018-09-18] MEDS: ALBUMIN HUMAN 5% 250 ML IV SOLUTION IVPB SCH ×2 (14:18→16:05)
--- NOTE | 2018-09-18 19:26 | PN ---
[facility] CIWA - CIWA Score Nausea/Vomitin-No Nausea/No Vomiting Muscle Tremors: 1-None Visible, but [place] Anxiety: 4-Mod. Anxious/Guarded Agitation: 4-Moderately Restless Paroxysmal Sweats: No Perspiration Orientation: 0-Oriented Tacttile Disturbances: 3-Moderate Itch/Numb/Burn Auditory Disturbances: 0-None Visual Disturbances: 0-None Headache: 0-None Present CIWA-Ar Total Score: 12 S Progress Note (SOAP) Subjective: 53 y.o. female patient referred for consultation , reports etoh use , latest on Friday " a few glasses of wine " , evasive historian regarding ETOH use , frequency and amount , age of use " I started with family at dinner " . Denies previous inpatient detox or rehab , sporadic ouptatient program participation " it's not my cup of tea " , tried AA " it's not for me " . Denies withdrawal seizures , blackouts or falls, denies injuries to self or others , denies falls while intoxicated. Denies illicits ( urine tox + cocaine ) , denies tobacco . Not a reliable historian. Currently reports feeling fine, denies withdrawal symptoms , overall improved since hospitalization for ascites and s/p paracentesis today , meds re-started . PMHX : chronic alcoholism, ascites secondary to alcoholic cirrhosis, hypothyroidism, chronic lower back and neck pain due to herniated disks, pancreatitis, GERD, HTN, HLD, anxiety/depression . [facility] database verified Others' Prescriptions Patient Name: Rohini Gonzalez Date: 1965 Address: [address] [place] [address] Sex: Female Rx Written Rx Dispensed Drug Quantity Days Supply Prescriber Name 08/12/2018 08/13/2018 oxycodone hcl 15 mg tablet 90 30 Sanket Wade 07/15/2018 07/15/2018 oxycodone hcl 15 mg tablet 120 30 Claude Christy MD 06/19/2018 06/19/2018 oxycodone hcl 15 mg tablet 90 30 Claude Christy MD 05/20/2018 05/21/2018 oxycodone hcl 15 mg tablet 90 30 Claude Christy MD 04/22/2018 04/22/2018 oxycodone hcl 15 mg tablet 70 30 Claude Christy MD 03/25/2018 03/25/2018 oxycodone hcl 15 mg tablet 90 30 Claude Christy MD 02/25/2018 02/25/2018 oxycodone hcl 15 mg tablet 120 30 Claude Christy MD 01/26/2018 01/26/2018 oxycodone hcl 15 mg tablet 120 30 Claude Christy MD 12/26/2017 12/26/2017 oxycodone hcl 15 mg tablet 120 30 Claude Christy MD 11/26/2017 11/26/2017 oxycodone hcl 15 mg tablet 120 30 Claude Christy MD 10/27/2017 10/27/2017 oxycodone hcl 15 mg tablet 120 30 Claude Christy MD 09/24/2017 09/25/2017 oxycodone hcl 15 mg tablet 120 30 Claude Christy MD Objective: thin , resting in bed , + slight tremors + icterus conjunctivae and skin , generalized pruritus , gingival superficial hemorrhage. Abnormal Lab Results 09/18/18 09/18/18 06:00 06:00 WBC 2.8 L RBC 2.62 L Hgb 9.3 L Hct 28.5 L MCV 108.8 H MCH 35.4 H RDW 16.4 H Plt Count 64 L Calcium 7.5 L Magnesium 1.6 L Total Bilirubin 4.6 H AST 51 H Total Protein 6.1 L Albumin 2.6 L Urine Test Results Urine Color [place] 09/17/18 13:20 Urine Appearance Slcloudy 09/17/18 13:20 Urine pH 5.0 (5.0-8.0) 09/17/18 13:20 Ur Specific [place] 1.025 (1.010-1.035) 09/17/18 13:20 Urine Protein 1+ (NEGATIVE) H 09/17/18 13:20 Urine Glucose (UA) Negative (NEGATIVE) 09/17/18 13:20 Urine Ketones Negative (NEGATIVE) 09/17/18 13:20 Urine Blood Negative (NEGATIVE) 09/17/18 13:20 Urine Nitrite Negative (NEGATIVE) 09/17/18 13:20 Urine Bilirubin Negative (<2.0 mg/dL) 09/17/18 13:20 Ur Leukocyte Esterase Negative (NEGATIVE) 09/17/18 13:20 Ur Epithelial Cells Rare /HPF (FEW) 09/17/18 13:20 Urine Mucus Rare 09/17/18 13:20 INR, PTT INR 1.44 (0.83-1.09) H 09/17/18 11:49 CBC, BMP 09/18/18 06:00 09/18/18 06:00 Vital Signs - 24 hr 09/17/18 09/17/18 09/18/18 20:47 21:00 00:00 Temperature 97.3 F L Pulse Rate 106 H Respiratory 18 18 Rate Blood Pressure 157/100 137/73 O2 Sat by Pulse 100 Oximetry (%) 09/18/18 09/18/18 09/18/18 02:00 06:00 09:00 Temperature 97.8 F 98.2 F Pulse Rate 99 H 94 H Respiratory 18 18 18 Rate Blood Pressure 137/83 142/89 O2 Sat by Pulse 97 Oximetry (%) 09/18/18 09/18/18 09/18/18 09:11 11:30 16:50 Temperature 98.7 F 98.7 F 98.2 F Pulse Rate 102 H 98 H 110 H Respiratory 18 18 22 H Rate Blood Pressure 143/82 152/92 146/86 O2 Sat by Pulse Oximetry (%) 09/18/18 19:05 Temperature 97.6 F Pulse Rate 103 H Respiratory 21 H Rate Blood Pressure 134/73 O2 Sat by Pulse Oximetry (%) 09/18/18 19:32 09/18/18 21:00 Assessment: Alcohol dependence / withdrawal . Plan: Ativan protocol prn patient refused inpatient detox , rehab or referral to outpatient program for aftercare . Patient also declied evaluation for ANtabuse/ Campral. Not a candidate for naltrexone due to concomittant opioid use. Patient states she is eager to leave the hospital tomorrow. f/up w/ PCP / GI for all medical issues
[2018-09-18] MEDS ORDERED: LORazepam 0.5 MG TABLET PO PRN (19:34)
[2018-09-19] MEDS: LEVOTHYROXINE NA 100 MCG TABLET (FP) PO SCH (07:15)
[2018-09-19 07:17] LABS: HEMATOCRIT 27.4 % (32.4-45.2); HEMOGLOBIN 9.8 GM/dL (10.7-15.3); MCH 38.2 pg (25.7-33.7); MCHC 35.8 g/dl (32.0-36.0); MEAN CELL VOLUME 106.9 fl (80-96); MEAN PLT VOLUME 8.2 fl (7.5-11.1); PLATELET COUNT 64 K/MM3 (134-434); RBC 2.57 M/mm3 (3.60-5.2); WHITE BLOOD COUNT 2.7 K/mm3 (4.0-10.0)
[2018-09-19 08:03] LABS: ALBUMIN 2.8 g/dl (3.4-5.0); ALK PHOS 81 U/L (45-117); ANION GAP 9 MMOL/L (8-16); BILIRUBIN,TOTAL 4.3 mg/dL (0.2-1); BLOOD UREA NITROGEN 10 mg/dL (7-18); CALCIUM 7.6 mg/dL (8.5-10.1); CHLORIDE 104 mmol/L (98-107); CO2 25 mmol/L (21-32); CREATININE 0.9 mg/dL (0.55-1.3); GLUCOSE,RANDOM 113 mg/dL (74-106); MAGNESIUM 1.6 mg/dL (1.8-2.4); POTASSIUM 3.3 mmol/L (3.5-5.1); SGOT/AST 53 U/L (15-37); SGPT/ALT 18 U/L (13-61); SODIUM 137 mmol/L (136-145); TOT PROT 6.1 g/dl (6.4-8.2)
[2018-09-19] MEDS ORDERED: POTASSIUM CHLORIDE TABS 20 MEQ TABLET.ER (FP) PO ONE (09:00)
[2018-09-19] MEDS ORDERED: MAGNESIUM OXIDE 400 MG TABLET (FP) PO ONE (09:00)
[2018-09-19] MEDS: oxyCODONE HCL 5 MG TABLET PO SCH ×4 (09:13→21:39)
[2018-09-19] MEDS: SPIRONOLACTONE 25 MG TABLET (FP) PO SCH (09:14)
[2018-09-19] MEDS: FLUoxetine HCL 20 MG CAPSULE (FP) PO SCH (09:14)
--- NOTE | 2018-09-19 14:08 | PN ---
Physical Exam: SUBJECTIVE: Patient seen and examined at the bedside. feels well, denies abdominal pain. tolerating diet. OBJECTIVE: Vital Signs Period Temp Pulse Resp BP Sys/Packer Pulse Ox Last 24 Hr 97.6 F-98.3 F 90-110 21-22 134-146/73-86 93-95 GENERAL: The patient is awake, alert, and fully oriented, in no acute distress. HEAD: Normal with no signs of trauma. EYES: PERRL, extraocular movements intact, sclera anicteric, conjunctiva clear. No ptosis. ENT: Ears normal, nares patent, oropharynx clear without exudates, moist mucous membranes. NECK: Trachea midline, full range of motion, supple. LUNGS: Breath sounds equal, clear to auscultation bilaterally, no wheezes HEART: Regular rate and rhythm ABDOMEN: mildly distended, no abdominal pain. tolerating diet. paracentesis s/p 6 liters removal EXTREMITIES: no edema. NEUROLOGICAL: Normal speech, gait not observed. PSYCH: Normal mood, normal affect. SKIN: Warm, dry, normal turgor, no rashes or lesions noted Laboratory Results - last 24 hr 09/19/18 09/19/18 05:50 05:50 WBC 2.7 L RBC 2.57 L Hgb 9.8 L Hct 27.4 L MCV 106.9 H MCH 38.2 H MCHC 35.8 RDW 16.0 H Plt Count 64 L MPV 8.2 D Sodium 137 Potassium 3.3 L Chloride 104 Carbon Dioxide 25 Anion Gap 9 BUN 10 Creatinine 0.9 Creat Clearance w eGFR > 60 Random Glucose 113 H Calcium 7.6 L Magnesium 1.6 L Total Bilirubin 4.3 H AST 53 H ALT 18 Alkaline Phosphatase 81 Total Protein 6.1 L Albumin 2.8 L Active Medications Generic Name Dose Route Start Last Admin Trade Name Freq PRN Reason Stop Dose Admin Fluoxetine HCl 20 mg 09/18/18 10:00 09/19/18 09:14 Prozac - PO 20 mg DAILY ANDREW Administration Levothyroxine Sodium 100 mcg 09/18/18 07:00 09/19/18 07:15 Synthroid - PO 100 mcg DAILY@0700 ANDREW Administration Lorazepam 0.5 mg 09/18/18 19:34 09/18/18 20:49 Ativan - PO 0.5 mg Q12H PRN Administration ANXIETY Magnesium Oxide 400 mg 09/19/18 22:00 Mag-Ox - PO BID ANDREW Oxycodone HCl 15 mg 09/17/18 18:00 09/19/18 09:13 Roxicodone - PO 15 mg QID ANDREW Administration Spironolactone 100 mg 09/18/18 10:00 09/19/18 09:14 Aldactone - PO 100 mg DAILY ANDREW Administration ASSESSMENT/PLAN: Patient is a 53 year old female with a past medical history of chronic alcohol abuse with ascites, liver cirrhosis, hypothyroidism, chronic lower back and neck pain due to herniated disks, pancreatitis, GERD, HTN, HLD, anxiety/ depression presented to the ED with a distended abdomen. US positive for a large amount of ascites and hepatic cirrhosis. She was admitted for paracentesis and further GI workup. GI: Ascites secondary to alcoholic cirrhosis patient reported that she felt short of breath at home as her abdominal girth increased. Ultrasound with large amount of ascites and hepatic cirrhosis. she is s/p paracentesis with 6 liters volume removal Followed by GI specialist Will continue to monitor for development of hepto-renal complications Patient does not have a PCP but willing to go to the clinic on d/c. Discussed the importance of monitoring her renal function closely Will need to observe response to spironolactone before starting furosemide As she is in danger of developing hepatorenal sydrome and will need close monitoring of bun/creat. AFP ordered and pending. will need EGD for surveillance of varicies. Seen by ID for possible SBP and no antibiotics recommended at this time. 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 Heme: Anemia hmg/hct low stable Monitor in the setting of abstinence of alcohol Thrombocytopenia Monitor in the setting of abstinence of alcohol Renal: Hypomagnesemia, repleted and supplements added Psyche: ETOH abuse, U-tox +cocaine No signs of withdrawal on exam. refused to follow up with [facility] on discharge Card: HTN, chronic. stable HLD. chronic. on no home meds. oupt follow up Muscular/skeletal Chronic lower back neck pain due to herniated disks Oxycodone HCl 15 mg PO QID Endocrine: Hypothyroidism Levothyroxine 100 mcg PO DAILY Anxiety/depression Fluoxetine HCl 20 mg PO DAILY fen po intake adequate monitor lytes regular diet as tolerated prophy: ambulation Visit type - Emergency Visit Emergency Visit: Yes ED Registration Date: 09/17/18 Care time: The patient presented to the Emergency Department on the above date and was hospitalized for further evaluation of their emergent condition. - New Patient This patient is new to me today: Yes Date on this admission: 09/19/18 - Critical Care Critical Care patient: No - Discharge Referral Referred to [facility] No
--- NOTE | 2018-09-19 14:36 | PN ---
Progress Note, Physician - Current Medication List Current Medications: Active Medications Fluoxetine HCl (Prozac -) 20 mg PO DAILY [facility] Last Admin: 09/19/18 09:14 Dose: 20 mg Levothyroxine Sodium (Synthroid -) 100 mcg PO DAILY@0700 [facility] Last Admin: 09/19/18 07:15 Dose: 100 mcg Lorazepam (Ativan -) 0.5 mg PO Q12H PRN PRN Reason: ANXIETY Last Admin: 09/18/18 20:49 Dose: 0.5 mg Magnesium Oxide (Mag-Ox -) 400 mg PO BID [facility] Oxycodone HCl (Roxicodone -) 15 mg PO QID [facility] Last Admin: 09/19/18 14:11 Dose: 15 mg Spironolactone (Aldactone -) 100 mg PO DAILY [facility] Last Admin: 09/19/18 09:14 Dose: 100 mg - Objective Vital Signs: Vital Signs Temperature 98.3 F 09/19/18 06:43 Pulse Rate 91 H 09/19/18 06:43 Respiratory Rate 21 H 09/19/18 06:43 Blood Pressure 139/76 09/19/18 06:43 O2 Sat by Pulse Oximetry (%) 95 09/19/18 09:00 Labs: CBC, BMP 09/19/18 05:50 09/19/18 05:50 INR, PTT INR 1.44 (0.83-1.09) H 09/17/18 11:49
[2018-09-19] MEDS: MAGNESIUM OXIDE 400 MG TABLET (FP) PO SCH (21:39)
[2018-09-20] MEDS: oxyCODONE HCL 5 MG TABLET PO SCH ×2 (06:04→11:28)
[2018-09-20] MEDS: LEVOTHYROXINE NA 100 MCG TABLET (FP) PO SCH (06:04)
[2018-09-20 09:18] LABS: BASO % 0.5 % (0-2.0); EOS % 2.2 % (0-4.5); HEMATOCRIT 29.7 % (32.4-45.2); HEMOGLOBIN 10.4 GM/dL (10.7-15.3); LYMPH % 17.4 % (8-40); MCH 37.7 pg (25.7-33.7); MCHC 34.9 g/dl (32.0-36.0); MEAN CELL VOLUME 107.9 fl (80-96); MEAN PLT VOLUME 10.1 fl (7.5-11.1); MONO % 10.5 % (3.8-10.2); NEUT % 69.4 % (42.8-82.8); PLATELET COUNT 89 K/MM3 (134-434); RBC 2.75 M/mm3 (3.60-5.2); RDW 16.2 % (11.6-15.6); WHITE BLOOD COUNT 4.1 K/mm3 (4.0-10.0)
[2018-09-20 09:51] LABS: ALK PHOS 78 U/L (45-117); ANION GAP 9 MMOL/L (8-16); BILIRUBIN,DIRECT 2.4 mg/dL (0.0-0.2); BILIRUBIN,TOTAL 5.1 mg/dL (0.2-1); BLOOD UREA NITROGEN 11 mg/dL (7-18); CALCIUM 7.9 mg/dL (8.5-10.1); CHLORIDE 105 mmol/L (98-107); CO2 22 mmol/L (21-32); CREATININE 1.2 mg/dL (0.55-1.3); GLUCOSE,RANDOM 113 mg/dL (74-106); POTASSIUM 4.2 mmol/L (3.5-5.1); SGOT/AST 68 U/L (15-37); SGPT/ALT 20 U/L (13-61); SODIUM 136 mmol/L (136-145); TOT PROT 6.3 g/dl (6.4-8.2)
[2018-09-20 10:09] VITALS: BP 137/80; PULSE 98; TEMP 98.2
[2018-09-20] MEDS: FLUoxetine HCL 20 MG CAPSULE (FP) PO SCH (10:18)
[2018-09-20] MEDS: MAGNESIUM OXIDE 400 MG TABLET (FP) PO SCH (10:18)
[2018-09-20] MEDS: SPIRONOLACTONE 25 MG TABLET (FP) PO SCH (10:19)
[2018-09-20] MEDS ORDERED: MAGNESIUM OXIDE 400 MG TABLET (FP) PO ONE (11:10)
--- NOTE | 2018-09-20 11:17 | DS ---
Physical Exam: SUBJECTIVE: Patient seen and examined OBJECTIVE: magnesium 1.5, given 800mg PO x 1 and started on supplements bid Vital Signs Period Temp Pulse Resp BP Sys/Packer Pulse Ox Last 24 Hr 97.6 F-99.0 F 89-107 18-20 124-140/52-81 95 PHYSICAL EXAM GENERAL: The patient is awake, alert, and fully oriented, in no acute distress. HEAD: Normal with no signs of trauma. EYES: PERRL, extraocular movements intact, sclera anicteric, conjunctiva clear. ENT: Ears normal, nares patent, oropharynx clear without exudates, moist mucous membranes. NECK: Trachea midline, full range of motion, supple. LUNGS: Breath sounds equal, clear to auscultation bilaterally, no wheezes, no crackles, no accessory muscle use. HEART: Regular rate and rhythm, S1, S2 without murmur, rub or gallop. ABDOMEN: Soft, nontender, nondistended, normoactive bowel sounds, no guarding, no rebound, no hepatosplenomegaly, no masses. EXTREMITIES: 2+ pulses, warm, well-perfused, no edema. NEUROLOGICAL: Cranial nerves II through XII grossly intact. Normal speech, gait not observed. PSYCH: Normal mood, normal affect. SKIN: Warm, dry, normal turgor, no rashes or lesions noted. LABS Laboratory Results - last 24 hr 09/19/18 09/20/18 09/20/18 05:50 09:05 09:05 WBC 4.1 RBC 2.75 L Hgb 10.4 L Hct 29.7 L MCV 107.9 H MCH 37.7 H MCHC 34.9 RDW 16.2 H Plt Count 89 L D MPV 10.1 D Absolute Neuts (auto) 2.8 Neutrophils % 69.4 D Lymphocytes % 17.4 D Monocytes % 10.5 H Eosinophils % 2.2 Basophils % 0.5 Nucleated RBC % 0 Sodium 136 Potassium 4.2 Chloride 105 Carbon Dioxide 22 Anion Gap 9 BUN 11 Creatinine 1.2 Creat Clearance w eGFR 47.18 Random Glucose 113 H Calcium 7.9 L Magnesium Total Bilirubin 5.1 H Direct Bilirubin 2.4 H AST 68 H ALT 20 Alkaline Phosphatase 78 Total Protein 6.3 L Albumin 3.0 L Tumor Marker AFP 3.6 09/20/18 09:05 WBC RBC Hgb Hct MCV MCH MCHC RDW Plt Count MPV Absolute Neuts (auto) Neutrophils % Lymphocytes % Monocytes % Eosinophils % Basophils % Nucleated RBC % Sodium Potassium Chloride Carbon Dioxide Anion Gap BUN Creatinine Creat Clearance w eGFR Random Glucose Calcium Magnesium 1.5 L Total Bilirubin Direct Bilirubin AST ALT Alkaline Phosphatase Total Protein Albumin Tumor Marker AFP HOSPITAL COURSE: Patient is a 53 year old female with a past medical history of chronic alcohol abuse with ascites, liver cirrhosis, hypothyroidism, chronic lower back and neck pain due to herniated disks, pancreatitis, GERD, HTN, HLD, anxiety/ depression presented to the ED with a distended abdomen. US positive for a large amount of ascites and hepatic cirrhosis. She was admitted for paracentesis and further GI workup. GI: Ascites secondary to alcoholic cirrhosis. now resolved s/p paracentesis 2017 with 6 liter volume removal. Patient to follow up with GI specialist Dr Crocker outpatient to continue to monitor for hepto-renal complications. pt aware and states she will present to the clinic next week. (patient does not have a PCP but willing to go to the clinic on d/c, referral given) Discussed the importance of monitoring her renal function closely with serial outpatient CMP. Will need to observe response to spironolactone before starting furosemide. Patient will need EGD for surveillance of varicies. Heme: Anemia hmg/hct low stable Monitor in the setting of abstinence of alcohol Thrombocytopenia, improving Monitor in the setting of abstinence of alcohol Renal: Hypomagnesemia, repleted and supplements added for home use. Psyche: ETOH abuse, U-tox +cocaine No signs of withdrawal on exam. refused to follow up with [facility] on discharge. refused help for alcohol abuse. Card: HTN, chronic. stable HLD. chronic. on no home meds. oupt follow up Muscular/skeletal Chronic lower back neck pain due to herniated disks Oxycodone HCl 15 mg PO QID home medication. Endocrine: Hypothyroidism Levothyroxine 100 mcg PO DAILY Anxiety/depression Fluoxetine HCl 20 mg PO DAILY Patient is stable for discharge with outpatient GI and PCP follow up. Referral given to outpatient clinic for monitoring of labs. Date of Admission:09/17/18 Date of Discharge: 09/20/18 Minutes to complete discharge: 60 Discharge Summary Reason For Visit: ASCITES; ALCOHOLIC CIRRHOSIS Current Active Problems Alcoholic cirrhosis (Acute) Ascites (Acute) Hypertriglyceridemia (Acute) Hypomagnesemia (Acute) Alcohol abuse, continuous (Chronic) Thrombocytopenia (Chronic) Condition: Improved - Instructions Diet, Activity, Other Instructions: Ms Gonzalez: You were admitted on 09/17/2018 or abdominal ascites and alcoholic cirrhosis. Here are our discharge recommendations: #Ascites secondary to alcoholic cirrhosis You had a paracentesis with 6 liters volume removal. It is imperative that you follow up with Dr. Crocker within 3-5 days after discharge as well as go to the cliniic (Dr Liang) within 3 days of discharge. You are need to have close monitoring of your renal function as you are in danger of developing hepatorenal syndrome. Hepatorenal syndrome is a progressive kidney failure seen in people with severe liver damage most often caused by cirrhosis. If your kidney function worsens, toxins can build up in the body and can lead to end stage liver failure. #Hematology You wre noted to also have anemia and low platelets which will need to be closely monitored in the abstinence of alcohol Please have CBC (complete blood count) done with a PCP within 3- 5 days of discharge. #Hypomagnesemia, supplements added twice daily. #ETOH abuse, U-tox +cocaine [facility] can offer you help for alcohol and substance abuse. You were seen by a specialist from [facility]. Please contact them if you would like to seek this help. New medications: Spironolactone 100mg daily Magnesium 400mg twice per day Please call me with any questions that you may have [facility] @ [facility] [phone] Referrals: Jose Rafael Venegas MD [Staff Physician] - Lois Crocker MD [Staff Physician] - Disposition: HOME - Home Medications Comprehensive Discharge Medication List: Ambulatory Orders Fluoxetine HCl 20 mg PO DAILY capsule 04/03/17 Levothyroxine [Synthroid -] 100 mcg PO DAILY 01/08/18 Oxycodone HCl 15 mg PO QID 03/17/18 Magnesium Oxide [Mag-Ox -] 400 mg PO BID #60 tablet 09/20/18 Spironolactone [Aldactone -] 100 mg PO DAILY #120 tablet 09/20/18 This patient is new to me today: Yes Date on this admission: 09/20/18 Emergency Visit: No Critical Care patient: No - Discharge Referral Referred to [facility] No
== END 2018-09-20 11:51 | disposition home or self-care (01) | DRG 264 ==
LOC: JER 10:47 → JERBED 16:53 → J5S 19:04
PROVIDERS: ADMIT Internal Medicine; ATTEND Nurse Practitioner Family
PROC: 0W9G3ZX Drainage of Peritoneal Cavity, Percutaneous Approach, Diagnostic (ICD-10-PCS; principal; 2018-09-18)
DX: K70.31 Alcoholic cirrhosis of liver with ascites (principal); D69.6 Thrombocytopenia, unspecified; E83.42 Hypomagnesemia; K70.10 Alcoholic hepatitis without ascites; I10 Essential (primary) hypertension; F14.10 Cocaine abuse, uncomplicated; F12.10 Cannabis abuse, uncomplicated; E03.9 Hypothyroidism, unspecified; E78.1 Pure hyperglyceridemia; M54.5 Low back pain; F32.9 Major depressive disorder, single episode, unspecified; F41.9 Anxiety disorder, unspecified; R00.0 Tachycardia, unspecified; K21.9 Gastro-esophageal reflux disease without esophagitis
CPT/HCPCS: 36415; 76700-TC; 76942-TC; 80048; 80053; 80076; 80307; 81003; 81015; 82105; 82140; 83735; 84100; 85025; 85027; 85610; 85730; 93005; 93010; 99283-25

== ENCOUNTER 2018-10-08 13:13 | Inpatient (IN) | payer OTHER ==
--- NOTE | 2018-10-08 13:47 | PDOC ---
History of Present Illness - General Chief Complaint: Pain, Acute Stated Complaint: ABD PAIN Time Seen by Provider: 10/08/18 13:44 - History of Present Illness Initial Comments: 53yo F with PMH of cirrhosis, chronic ETOH, hypothyroid, chronic low back pain, pancreatitis, GERD, HTN, HLD, anxiety/depression presenting with abdominal discomfort. Patient states she was last admitted for this same issue in mid- September. Her distention has caused her increasing discomfort since the holidays. She reports compliance with medications. Reports a touch of alcohol use over the holidays and denies the use of illicit substances. Her distention has been significant enough to cause her chest pain and shortness of breath. Patient also endorses bilateral leg swelling. She has not been able to follow- up with her GI specialist, Dr. Crocker, since she was discharged. Endorses subjective fever. Past History - Past Medical History Allergies/Adverse Reactions: Allergies Allergy/AdvReac Type Severity Reaction Status Date / Time No Known Allergies Allergy Verified 10/08/18 13:18 Home Medications: Ambulatory Orders Fluoxetine HCl 10 mg PO DAILY capsule 04/03/17 Levothyroxine [Synthroid -] 100 mcg PO DAILY 01/08/18 Magnesium Oxide [Mag-Ox -] 400 mg PO BID #60 tablet 09/20/18 Spironolactone [Aldactone -] 100 mg PO DAILY #120 tablet 09/20/18 Calcium Carbonate/Vitamin D3 [Calcium 600-Vit D3 400 Tablet] 1 each PO DAILY 01/22 Anemia: Yes Asthma: No Cancer: No Cardiac Disorders: No CVA: No COPD: No CHF: No Dementia: No Diabetes: No GI Disorders: Yes (ASCITES,ABD. PAIN, GERD, pancreatitis;ON PRILOSEC) Disorders: No HTN: Yes (NOT CURRENTLY ON MED) Hypercholesterolemia: Yes (NOT CURRENTLY ON MED--TAKEN OFF) Kidney Stones: No Liver Disease: No Psychiatric Problems: Yes (anxiety/depression) Seizures: No Thyroid Disease: Yes (HYPOTHYROIDISM- ON SYNTHROID 100 MCG) - Surgical History Abdominal Surgery: No Appendectomy: No Cardiac Surgery: No Cholecystectomy: No Lung Surgery: No Neurologic Surgery: No Orthopedic Surgery: No - Reproductive History PID: No - Suicide/Smoking/Psychosocial Hx Smoking Status: No Smoking History: Never smoked Have you smoked in the past 12 months: No Number of Cigarettes Smoked Daily: 0 Hx Alcohol Use: No Drug/Substance Use Hx: No Substance Use Type: Alcohol Hx Substance Use Treatment: No Review of Systems - Review of Systems Comments:: Constitutional: +fever, no chills HEENT: no throat pain, no dysphagia Cardiovascular: +chest pain, no palpitations Respiratory: no cough, +shortness of breath Gastrointestinal: +abdominal pain, no nausea, no vomiting Genitourinary: no dysuria, no frequency Musculoskeletal: no myalgia, no arthralgia Skin: no rash, no itching Neurologic: no headache, no dizziness *Physical Exam - Vital Signs Last Vital Signs Temp Pulse Resp BP Pulse Ox 98.1 F 107 H 24 H 161/96 98 10/08/18 13:19 10/08/18 13:19 10/08/18 13:19 10/08/18 13:19 10/08/18 13:19 - Physical Exam Comments: General: Awake, alert, and fully oriented, in no acute distress Head: No signs of trauma Eyes: EOMI, sclera anicteric ENT: Moist mucus membranes Neck: Normal ROM, supple Lungs: Lungs clear, Normal breath sounds Cardio: Regular rhythm, S1 and S2 present Abdomen: Significant distention with fluid wave, diffuse tenderness present upon palpation Extremities: Normal range of motion, 2+ pitting edema in BLE SKIN: Warm, Dry, normal turgor Neurologic: Cranial nerves II through XII grossly intact. Normal speech Moderate Sedation - Procedure Monitoring Vital Signs: Procedure Monitoring Vital Signs Temperature 98.1 F 10/08/18 13:19 Pulse Rate 107 H 10/08/18 13:19 Respiratory Rate 24 H 10/08/18 13:19 Blood Pressure 161/96 10/08/18 13:19 O2 Sat by Pulse Oximetry (%) 98 10/08/18 13:19 ED Treatment Course - LABORATORY CBC & Chemistry Diagram: 10/10/18 07:30 10/10/18 07:30 Medical Decision Making - Medical Decision Making 53yo F with PMH of cirrhosis, chronic ETOH, hypothyroid, chronic low back pain, pancreatitis, GERD, HTN, HLD, anxiety/depression presenting with abdominal discomfort. -Labs: at patient's baseline -Likely admission for therapeutic paracentesis -Patient requested her home dose of oxycodone for her chronic back pain. Ordered -EKG, rate 95, QTc 482, NSR -Pending CXR -Though patient endorses chest pain, she points to her epigastrium when asked to locate her pain. EKG with no ST d/e. Negative Tpn. HEART score is 2. -Discussed case to hospitalist team who accepted patient for admission 10/08/18 17:20 *DC/Admit/Observation/Transfer Diagnosis at time of Disposition: Ascites, Cirrhosis - Discharge Dispostion Condition at time of disposition: Guarded Decision to Admit order: Yes - Referrals - Patient Instructions - Post Discharge Activity
[2018-10-08] MEDS ORDERED: oxyCODONE HCL 5 MG TABLET PO ONE (14:48)
[2018-10-08 15:40] LABS: BASO % 0.6 % (0-2.0); EOS % 1.4 % (0-4.5); HEMATOCRIT 30.4 % (32.4-45.2); HEMOGLOBIN 10.8 GM/dL (10.7-15.3); LYMPH % 18.6 % (8-40); MCH 37.1 pg (25.7-33.7); MCHC 35.4 g/dl (32.0-36.0); MEAN CELL VOLUME 104.8 fl (80-96); MEAN PLT VOLUME 10.5 fl (7.5-11.1); NEUT % 65.4 % (42.8-82.8); PLATELET COUNT 60 K/MM3 (134-434); WHITE BLOOD COUNT 3.6 K/mm3 (4.0-10.0)
--- NOTE | 2018-10-08 16:00 | PDOC ---
Attending Attestation - Resident Resident Name: Cristina Joy - ED Attending Attestation I have performed the following: I have examined & evaluated the patient, The case was reviewed & discussed with the resident, I agree w/resident's findings & plan - HPI HPI: 10/08/18 15:55 53-year-old female with history of cirrhosis and recurring ascites status post therapeutic paracentesis in August and September presents now with 1-2 weeks of progressive abdominal distention, no fevers or chills, no confusion or vomiting. - Physicial Exam PE: 10/08/18 15:58 Afebrile, slightly tachypneic secondary to abdominal girth, otherwise no respiratory distress and speaking full sentences Thin/cachectic Lungs are clear, slight crackles at the bases which clear, heart is regular Abdomen is distended, soft. Diffuse ascites with palpable fluid wave, no focal guarding or rebound - Medical Decision Making 10/08/18 15:59 53-year-old female with acute on chronic exacerbation of abdominal ascites secondary to cirrhosis, here for worsening distention. No evidence of encephalopathy or acute infectious process, but will need therapeutic paracentesis. Labs Interventional radiology consult for paracentesis GI consult with Dr. Burch Admission Heart Score/ECG Review #1 ECG reviewed & interpreted by me at: 15:19 General ECG Interpretation: Sinus Rhythm, Normal Rate (95), Normal Intervals ( qtc 482), No acute ischemic changes
[2018-10-08 16:02] LABS: INR 1.64 (0.83-1.09); PROTHROMBIN TIME (PATIENT) 19.5 SEC (9.7-13.0)
[2018-10-08 16:04] LABS: ALBUMIN 2.7 g/dl (3.4-5.0); ALK PHOS 112 U/L (45-117); ANION GAP 12 MMOL/L (8-16); BILIRUBIN,TOTAL 5.3 mg/dL (0.2-1); BLOOD UREA NITROGEN 12 mg/dL (7-18); CALCIUM 7.6 mg/dL (8.5-10.1); CHLORIDE 102 mmol/L (98-107); CO2 22 mmol/L (21-32); CREATININE 1.1 mg/dL (0.55-1.3); GLUCOSE,RANDOM 111 mg/dL (74-106); LIPASE 238 U/L (73-393); N-TERMINAL BNP 120.7 pg/ml (5-125); POTASSIUM 4.2 mmol/L (3.5-5.1); SGOT/AST 78 U/L (15-37); SGPT/ALT 21 U/L (13-61); SODIUM 136 mmol/L (136-145); TOT PROT 6.8 g/dl (6.4-8.2)
[2018-10-08 16:05] LABS: ACTIVATED PTT 31.9 SECONDS (25.2-36.5)
[2018-10-08 16:10] LABS: URINE APPEARANCE SLCLOUDY; URINE COLOR AMBER; URINE GLUCOSE (UA) NEGATIVE (NEGATIVE); URINE KETONE NEGATIVE (NEGATIVE); URINE LEUK ESTERASE NEGATIVE (NEGATIVE); URINE NITRITE NEGATIVE (NEGATIVE); URINE PROTEIN 2+ (NEGATIVE); URINE UROBILINOGEN 4.0 E.U/dl mg/dL (0.2-1.0)
[2018-10-08 16:19] LABS: EPI CELLS FEW /HPF (FEW); URINE BACTERIA RARE /hpf (NONE SEEN); URINE HYALINE CAST 132 /lpf; URINE MUCUS MANY
[2018-10-08 16:24] LABS: METHADONE, UR NEGATIVE ng/ml (CUTOFF=300); OPIATES, URI NEGATIVE ng/ml (CUTOFF=300); PHENCYCLIDINE,URINE NEGATIVE ng/ml (CUTOFF=25); URINE AMPHETAMINES NEGATIVE ng/ml (CUTOFF=500); URINE BARBITURATES NEGATIVE ng/ml (CUTOFF=200); URINE BENZODIAZEPINES NEGATIVE ng/ml (CUTOFF=200)
[2018-10-08 16:28] LABS: COCAINE, UR POSITIVE ng/ml (CUTOFF=300)
--- NOTE | 2018-10-08 20:04 | PN ---
Teaching Attending Note Name of Resident: George Silveira ATTENDING PHYSICIAN STATEMENT I saw and evaluated the patient. I reviewed the resident's note and discussed the case with the resident. I agree with the resident's findings and plan as documented. SUBJECTIVE: Patient is a 53 brady old woman with PMH of cirrhosis, chronic ETOH, hypothyroid , chronic low back pain, pancreatitis, GERD, HTN, HLD, anxiety/depression presenting with abdominal discomfort. Patient states she was last admitted for this same issue in mid-September. Her distention has caused her increasing discomfort since the holidays. She reports compliance with medications. Reports a touch of alcohol use over the holidays and denies the use of illicit substances. Her distention has been significant enough to cause her chest pain and shortness of breath. Patient also endorses bilateral leg swelling. She has not been able to follow-up with her GI specialist, Dr. Crocker, since she was discharged. Endorses subjective fever. OBJECTIVE: Alert Vital Signs Period Temp Pulse Resp BP Sys/Packer Pulse Ox Last 24 Hr 98.1 F 107 24 161/96 98 HEENT: Sclera icterus, eye redness or discharge, PERRLA, EOMI. Normocephalic, atraumatic. External ears are normal and hearing is grossly intact. No nasal discharge. Neck: Supple, nontender. No palpable adenopathy or thyromegaly. No JVD Chest: Good effort. Clear to auscultation and percussion. Heart: Regular. No S3, rub or murmur Abdomen: Distended, tense ascites, diffuse tenderness and no HSM. No rebound or guarding. Normoactive bowel sounds. Ext: Peripheral pulses intact. Leg edema. Skin: Warm and dry. No petechiae, rash or ecchymosis. +Jaundice Neuro: Alert. Oriented x3. CN 2-12 grossly intact. Sensation grossly intact in all four extremities and DTR are symmetric. Current Medications Generic Name Dose Route Start Last Admin Trade Name Freq PRN Reason Stop Dose Admin Lactulose 20 gm 10/08/18 22:00 Cephulac (Oral Use) PO TID [facility] Home Medications Medication Instructions Recorded Fluoxetine HCl 20 mg PO DAILY capsule 04/03/17 Levothyroxine [Synthroid -] 100 mcg PO DAILY 01/08/18 Oxycodone HCl 15 mg PO QID 03/17/18 Magnesium Oxide [Mag-Ox -] 400 mg PO BID #60 tablet 09/20/18 Spironolactone [Aldactone -] 100 mg PO DAILY #120 tablet 09/20/18 Abnormal Lab Results 10/08/18 10/08/18 10/08/18 15:08 15:08 15:08 WBC 3.6 L RBC 2.90 L Hct 30.4 L MCV 104.8 H MCH 37.1 H RDW 17.0 H Plt Count 60 L D Monocytes % 14.0 H PT with INR 19.50 H INR 1.64 H Random Glucose 111 H Calcium 7.6 L Total Bilirubin 5.3 H AST 78 H Ammonia Albumin 2.7 L Urine Protein Urine Urobilinogen Cocaine Screen 10/08/18 10/08/18 10/08/18 15:08 15:08 15:56 WBC RBC Hct MCV MCH RDW Plt Count Monocytes % PT with INR INR Random Glucose Calcium Total Bilirubin AST Ammonia 55.40 H Albumin Urine Protein 2+ H Urine Urobilinogen 4.0 e.u/dl H Cocaine Screen Positive A* ASSESSMENT AND PLAN: 1. Decompensated alcoholic cirrhosis with tense ascites - Discontinuation of PO lasix during her last admission may have contributed to the rapid reaccumulation of ascites. Will consult IR for stat diagnostic and therapeutic paracentesis. No indication for antibiotics for SBP at this time - will await fluid analysis. Treatment with lactulose and rifaximin for hepatic encephalopathy, regular diet , monitor electrolytes and restart lasix and aldactone. Patient counseled to stop using cocaine and alcohol. Pancytopenia likely due to liver disease/portal hypertension - will monitor. 2. Hypoalbuminemia - Possibly due to combined effects of malnutrition, proteinuria and inflammation associated with chronic liver disease. Will ensure adequate dietary protein intake and also consult laundry technician. 3. Alcohol abuse - Implement [facility] alcohol withdrawal protocol, fall and aspiration precautions. Treat with thiamine and folic acid and monitor electrolytes (Ca,Mg,K,P). Survey Crew Chief patient about abstaining from alcohol and refer to alcohol detox upon discharge. 4. DVT prophylaxis - Early ambulation 5. Advance directives - Full code
--- NOTE | 2018-10-08 21:32 | HP ---
CHIEF COMPLAINT: PCP: HISTORY OF PRESENT ILLNESS: 53 yo F PMH of cirrhosis, chronic ETOH, hypothyroid, chronic low back pain, pancreatitis, GERD, HTN, HLD, anxiety/depression p/w worsening abdominal distension x2wk. Patient states she was last admitted for this same issue in mid -September. Her distention has caused her increasing discomfort since the holidays. She reports compliance with medications but says she has been eating more salt and a touch of alcohol use over the holidays. Denies the use of illicit substances. Pt says her last drink was on New and was not more than 1-2 glasses of wine, denies whiskey use. Her distention has been significant enough to cause her cp and sob. Patient also endorses bilateral leg swelling. She has not been able to follow-up with her GI specialist, Dr. Crocker , since she was discharged. Endorses subjective fever. Denies n/v/d, LOVING, confusion, urinary sxs, shaking Of note, at her last admission paracentisis was done and 6L was removed. She was not continued on Lasix for fear of pushing her into hepatorenal. 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, looking for permanent housing, disability application in process Smoking: Never smoker Alcohol: Heavy ETOH use for 30 year Drugs: Cocaine and MJ occasionally Family History: Father: Emphesyma from asbestos, age 72 Mother: Lung cancer, age 58 Brother: [place], age 47 Allergies No Known Allergies Allergy (Verified 10/08/18 13:18) HOME MEDICATIONS: Home Medications Medication Instructions Recorded Fluoxetine HCl 20 mg PO DAILY capsule 04/03/17 Levothyroxine [Synthroid -] 100 mcg PO DAILY 01/08/18 Oxycodone HCl 15 mg PO QID 03/17/18 Magnesium Oxide [Mag-Ox -] 400 mg PO BID #60 tablet 09/20/18 Spironolactone [Aldactone -] 100 mg PO DAILY #120 tablet 09/20/18 REVIEW OF SYSTEMS as per hpi PHYSICAL EXAMINATION Vital Signs - 24 hr 10/08/18 13:19 Temperature 98.1 F Pulse Rate 107 H Respiratory 24 H Rate Blood Pressure 161/96 O2 Sat by Pulse 98 Oximetry (%) GENERAL: AOX3 NAD, jaundice skin HEAD: NCAT EYES: +sclera icteric, Pupils equal, round and reactive to light, extraocular movements intact, , conjunctiva clear. No lid lag. EARS, NOSE, THROAT: Ears normal, nares patent, oropharynx clear without exudates. Moist mucous membranes. NECK: Normal range of motion, supple without lymphadenopathy, JVD, or masses. LUNGS: CTAB HEART: RRR, normal S1 and S2 without murmur, rub or gallop. ABDOMEN: Soft, largely distended, mild ttp, normoactive bowel sounds, no guarding, no rebound, no masses. MUSCULOSKELETAL: Normal range of motion at all joints. No bony deformities or tenderness. UPPER EXTREMITIES: 2+ pulses, warm, well-perfused. No cyanosis. No clubbing. No peripheral edema. LOWER EXTREMITIES: 2+ pulses, warm, well-perfused. No calf tenderness. +1 peripheral edema. NEUROLOGICAL: Cranial nerves II-XII intact. Normal speech. PSYCHIATRIC: Cooperative. Good eye contact. Appropriate mood and affect. SKIN: Warm, dry, normal turgor, no rashes or lesions noted, normal capillary refill. Laboratory Results - last 24 hr 10/08/18 10/08/18 10/08/18 15:08 15:08 15:08 WBC 3.6 L RBC 2.90 L Hgb 10.8 Hct 30.4 L MCV 104.8 H MCH 37.1 H MCHC 35.4 RDW 17.0 H Plt Count 60 L D MPV 10.5 Absolute Neuts (auto) 2.3 Neutrophils % 65.4 Lymphocytes % 18.6 Monocytes % 14.0 H Eosinophils % 1.4 Basophils % 0.6 Nucleated RBC % 0 PT with INR 19.50 H INR 1.64 H PTT (Actin FS) 31.9 Sodium 136 Potassium 4.2 Chloride 102 Carbon Dioxide 22 Anion Gap 12 BUN 12 Creatinine 1.1 Creat Clearance w eGFR 52.16 Random Glucose 111 H Calcium 7.6 L Total Bilirubin 5.3 H AST 78 H ALT 21 Alkaline Phosphatase 112 Ammonia Troponin I B-Natriuretic Peptide 120.7 Total Protein 6.8 Albumin 2.7 L Lipase 238 Urine Color Urine Appearance Urine pH Ur Specific [place] Urine Protein Urine Glucose (UA) Urine Ketones Urine Blood Urine Nitrite Urine Bilirubin Urine Urobilinogen Ur Leukocyte Esterase Urine WBC (Auto) Urine RBC (Auto) Ur Epithelial Cells Urine Bacteria Hyaline Casts Urine Mucus Opiates Screen Methadone Screen Barbiturate Screen Phencyclidine Screen Ur Amphetamines Screen MDMA (Ecstasy) Screen Benzodiazepines Screen Cocaine Screen U Marijuana (THC) Screen Alcohol, Quantitative < 3.0 10/08/18 10/08/18 10/08/18 15:08 15:08 15:08 WBC RBC Hgb Hct MCV MCH MCHC RDW Plt Count MPV Absolute Neuts (auto) Neutrophils % Lymphocytes % Monocytes % Eosinophils % Basophils % Nucleated RBC % PT with INR INR PTT (Actin FS) Sodium Potassium Chloride Carbon Dioxide Anion Gap BUN Creatinine Creat Clearance w eGFR Random Glucose Calcium Total Bilirubin AST ALT Alkaline Phosphatase Ammonia 55.40 H Troponin I < 0.02 B-Natriuretic Peptide Total Protein Albumin Lipase Urine Color Urine Appearance Urine pH Ur Specific [place] Urine Protein Urine Glucose (UA) Urine Ketones Urine Blood Urine Nitrite Urine Bilirubin Urine Urobilinogen Ur Leukocyte Esterase Urine WBC (Auto) Urine RBC (Auto) Ur Epithelial Cells Urine Bacteria Hyaline Casts Urine Mucus Opiates Screen Negative Methadone Screen Negative Barbiturate Screen Negative Phencyclidine Screen Negative Ur Amphetamines Screen Negative MDMA (Ecstasy) Screen Negative Benzodiazepines Screen Negative Cocaine Screen Positive A* U Marijuana (THC) Screen Negative Alcohol, Quantitative 10/08/18 15:56 WBC RBC Hgb Hct MCV MCH MCHC RDW Plt Count MPV Absolute Neuts (auto) Neutrophils % Lymphocytes % Monocytes % Eosinophils % Basophils % Nucleated RBC % PT with INR INR PTT (Actin FS) Sodium Potassium Chloride Carbon Dioxide Anion Gap BUN Creatinine Creat Clearance w eGFR Random Glucose Calcium Total Bilirubin AST ALT Alkaline Phosphatase Ammonia Troponin I B-Natriuretic Peptide Total Protein Albumin Lipase Urine Color Zully Urine Appearance Slcloudy Urine pH 5.0 Ur Specific [place] 1.028 Urine Protein 2+ H Urine Glucose (UA) Negative Urine Ketones Negative Urine Blood Negative Urine Nitrite Negative Urine Bilirubin 2.0 Urine Urobilinogen 4.0 e.u/dl H Ur Leukocyte Esterase Negative Urine WBC (Auto) <1 Urine RBC (Auto) <1 Ur Epithelial Cells Few Urine Bacteria Rare Hyaline Casts 132 Urine Mucus Many Opiates Screen Methadone Screen Barbiturate Screen Phencyclidine Screen Ur Amphetamines Screen MDMA (Ecstasy) Screen Benzodiazepines Screen Cocaine Screen U Marijuana (THC) Screen Alcohol, Quantitative ASSESSMENT/PLAN: 53 yo F PMH of cirrhosis, chronic ETOH, hypothyroid, chronic low back pain, pancreatitis, GERD, HTN, HLD, anxiety/depression p/w worsening abdominal distension x2wk. Decompensated alcoholic cirrhosis w/ ascites - MELD 20. ammonia 55, bili 5.3, Cr 1.1, INR 1.64. Discontinuation of PO lasix during her last admission may have contributed to the rapid reaccumulation of ascites. IR consult for paracentesis GI consult No indication for antibiotics for SBP at this time - will await fluid analysis. NPO after midnight lactulose and rifaximin for hepatic encephalopathy c/w home dose aldactone 100 mg PO DAILY consider restarting lasix monitor BMPs monitor INRs Pancytopenia likely due to liver disease/portal hypertension - will monitor. Hypoalbuminemia - chronic liver disease. ensure fpc adequate dietary protein intake Alcohol abuse - last drink on new , 1-2 glasses wine monitor CIWA fall and aspiration precautions. thiamine and folic acid closely monitor electrolytes (Ca,Mg,K,P). consider ativan prn for sxs Substance abuse - Chronic alcoholism - U-tox +cocaine - Consider substance abuse consult HTN - Elevated, likely secondary to fluid overload - Continue Aldactone consider restarting lasix HLD - Not currently on statin therapy Chronic lower back neck pain due to herniated disks - Oxycodone HCl 15 mg PO QID Pancreatitis - not active Hypothyroidism - Levothyroxine [Synthroid -] 100 mcg PO DAILY Anxiety/depression - Fluoxetine HCl 20 mg PO DAILY FEN - no IVF - Replete as needed - NPO after midnight DVT prophylaxis SCDs Full code Disp: med surg Visit type - Emergency Visit Emergency Visit: Yes ED Registration Date: 10/08/18 Care time: The patient presented to the Emergency Department on the above date and was hospitalized for further evaluation of their emergent condition. - New Patient This patient is new to me today: Yes Date on this admission: 10/09/18 - Critical Care Critical Care patient: No
[2018-10-08] MEDS ORDERED: LACTULOSE 20 GM/30 ML UDC (FOR ORAL USE ONLY) PO SCH (22:00)
[2018-10-08] MEDS: oxyCODONE HCL 5 MG TABLET PO PRN (22:21)
[2018-10-09] MEDS: LEVOTHYROXINE NA 100 MCG TABLET (FP) PO SCH (06:11)
[2018-10-09] MEDS: MAGNESIUM OXIDE 400 MG TABLET (FP) PO SCH ×3 (07:18→21:38)
[2018-10-09] MEDS: LACTULOSE 20 GM/30 ML UDC (FOR ORAL USE ONLY) PO SCH ×3 (07:18→15:50)
[2018-10-09 07:37] LABS: INR 1.77 (0.83-1.09)
[2018-10-09 07:39] LABS: BASO % 0.8 % (0-2.0); EOS % 2.8 % (0-4.5); HEMATOCRIT 28.6 % (32.4-45.2); HEMOGLOBIN 9.5 GM/dL (10.7-15.3); MCHC 33.1 g/dl (32.0-36.0); MEAN CELL VOLUME 105.8 fl (80-96); MEAN PLT VOLUME 10.2 fl (7.5-11.1); NEUT % 51.4 % (42.8-82.8); PLATELET COUNT 53 K/MM3 (134-434); RBC 2.71 M/mm3 (3.60-5.2); RDW 17.2 % (11.6-15.6); WHITE BLOOD COUNT 3.2 K/mm3 (4.0-10.0)
[2018-10-09 08:01] LABS: ALBUMIN 2.6 g/dl (3.4-5.0); ALK PHOS 88 U/L (45-117); ANION GAP 10 MMOL/L (8-16); BLOOD UREA NITROGEN 14 mg/dL (7-18); CALCIUM 7.4 mg/dL (8.5-10.1); CHLORIDE 102 mmol/L (98-107); CO2 24 mmol/L (21-32); CREATININE 1.2 mg/dL (0.55-1.3); GLUCOSE,RANDOM 90 mg/dL (74-106); MAGNESIUM 1.2 mg/dL (1.8-2.4); PHOSPHOROUS 3.7 mg/dL (2.5-4.9); POTASSIUM 3.7 mmol/L (3.5-5.1); SGOT/AST 72 U/L (15-37); SGPT/ALT 19 U/L (13-61); SODIUM 136 mmol/L (136-145); TOT PROT 6.2 g/dl (6.4-8.2)
[2018-10-09] MEDS: oxyCODONE HCL 5 MG TABLET PO PRN ×3 (08:56→21:38)
--- NOTE | 2018-10-09 09:16 | EKG ---
Test Reason : Blood Pressure : / mmHG Vent. Rate : 095 BPM Atrial Rate : 095 BPM P-R Int : 112 ms QRS Dur : 074 ms QT Int : 384 ms P-R-T Axes : 039 016 032 degrees QTc Int : 482 ms NORMAL SINUS RHYTHM CANNOT RULE OUT ANTERIOR INFARCT , AGE UNDETERMINED ABNORMAL ECG WHEN COMPARED WITH ECG OF 17-SEP-2018 18:10, PREMATURE VENTRICULAR COMPLEXES ARE NO LONGER PRESENT Confirmed by CANDE CASTILLO, SOREN ([id number]) on 10/09/2018 9:16:32 AM Referred By: Confirmed By:SOREN CASTELLON MD
[2018-10-09 09:24] LABS: BILIRUBIN,DIRECT 2.3 mg/dL (0.0-0.2)
[2018-10-09] MEDS ORDERED: PT OWN MED DRAWER 7, Y5N ONE (09:39)
--- NOTE | 2018-10-09 09:48 | PN ---
Physical Exam: SUBJECTIVE: Patient seen and examined at bedside this morning. She states she did not follow up with Dr. Crocker since her hospital discharge last month due to the holidays. She admits strict compliance with spironolactone. States she drank three glasses of wine during a holiday constitution party during , as well as [place], and denies any alcohol otherwise. Today, she complains of dull diffuse pressure over her upper abdomen. OBJECTIVE: Vital Signs Period Temp Pulse Resp BP Sys/Packer Pulse Ox Last 24 Hr 97.5 F-98.2 F 90-107 20-24 131-161/82-96 95-98 GENERAL: The patient is awake, alert, and fully oriented, in no acute distress. HEAD: Normocephalic, atraumatic. EYES: PERRL, extraocular movements intact. Faint scleral icterus noted B/L. ENT: Oropharynx clear without exudates, moist mucous membranes. NECK: Supple without lymphadenopathy. LUNGS: Good inspiratory effort, clear to auscultation bilaterally. No wheezes, no crackles. No accessory muscle use. HEART: Regular rate and rhythm, S1, S2 without murmur, rub or gallop. ABDOMEN: Tense, distended. Tender to deep palpation at left and right upper abdominal quadrants. No rebound tenderness. Tympanic to percussion LUQ, RUQ. Normoactive bowel sounds X4 quadrants. EXTREMITIES: 2+ radial and dorsalis pedis pulses B/L. 1+ right lower extremity edema. 2+ left lower extremity edema. NEUROLOGICAL: Cranial nerves II through XII grossly intact. Normal speech. No asterexis appreciated. PSYCH: Anxious appearing upon my encounter. SKIN: Jaundiced skin. Warm, Dry. No rashes, lesions. No caput medusae appreciated. Laboratory Results - last 24 hr 10/08/18 10/08/18 10/08/18 15:08 15:08 15:08 WBC 3.6 L RBC 2.90 L Hgb 10.8 Hct 30.4 L MCV 104.8 H MCH 37.1 H MCHC 35.4 RDW 17.0 H Plt Count 60 L D MPV 10.5 Absolute Neuts (auto) 2.3 Neutrophils % 65.4 Lymphocytes % 18.6 Monocytes % 14.0 H Eosinophils % 1.4 Basophils % 0.6 Nucleated RBC % 0 PT with INR 19.50 H INR 1.64 H PTT (Actin FS) 31.9 Sodium 136 Potassium 4.2 Chloride 102 Carbon Dioxide 22 Anion Gap 12 BUN 12 Creatinine 1.1 Creat Clearance w eGFR 52.16 Random Glucose 111 H Calcium 7.6 L Phosphorus Magnesium Total Bilirubin 5.3 H Direct Bilirubin AST 78 H ALT 21 Alkaline Phosphatase 112 Ammonia Troponin I B-Natriuretic Peptide 120.7 Total Protein 6.8 Albumin 2.7 L Lipase 238 Urine Color Urine Appearance Urine pH Ur Specific [place] Urine Protein Urine Glucose (UA) Urine Ketones Urine Blood Urine Nitrite Urine Bilirubin Urine Urobilinogen Ur Leukocyte Esterase Urine WBC (Auto) Urine RBC (Auto) Ur Epithelial Cells Urine Bacteria Hyaline Casts Urine Mucus Opiates Screen Methadone Screen Barbiturate Screen Phencyclidine Screen Ur Amphetamines Screen MDMA (Ecstasy) Screen Benzodiazepines Screen Cocaine Screen U Marijuana (THC) Screen Alcohol, Quantitative < 3.0 Blood Type Antibody Screen 10/08/18 10/08/18 10/08/18 15:08 15:08 15:08 WBC RBC Hgb Hct MCV MCH MCHC RDW Plt Count MPV Absolute Neuts (auto) Neutrophils % Lymphocytes % Monocytes % Eosinophils % Basophils % Nucleated RBC % PT with INR INR PTT (Actin FS) Sodium Potassium Chloride Carbon Dioxide Anion Gap BUN Creatinine Creat Clearance w eGFR Random Glucose Calcium Phosphorus Magnesium Total Bilirubin Direct Bilirubin AST ALT Alkaline Phosphatase Ammonia 55.40 H Troponin I < 0.02 B-Natriuretic Peptide Total Protein Albumin Lipase Urine Color Urine Appearance Urine pH Ur Specific [place] Urine Protein Urine Glucose (UA) Urine Ketones Urine Blood Urine Nitrite Urine Bilirubin Urine Urobilinogen Ur Leukocyte Esterase Urine WBC (Auto) Urine RBC (Auto) Ur Epithelial Cells Urine Bacteria Hyaline Casts Urine Mucus Opiates Screen Negative Methadone Screen Negative Barbiturate Screen Negative Phencyclidine Screen Negative Ur Amphetamines Screen Negative MDMA (Ecstasy) Screen Negative Benzodiazepines Screen Negative Cocaine Screen Positive A* U Marijuana (THC) Screen Negative Alcohol, Quantitative Blood Type Antibody Screen 10/08/18 10/09/18 10/09/18 15:56 06:30 06:30 WBC RBC Hgb Hct MCV MCH MCHC RDW Plt Count MPV Absolute Neuts (auto) Neutrophils % Lymphocytes % Monocytes % Eosinophils % Basophils % Nucleated RBC % PT with INR 21.00 H INR 1.77 H PTT (Actin FS) Sodium 136 Potassium 3.7 Chloride 102 Carbon Dioxide 24 Anion Gap 10 BUN 14 Creatinine 1.2 Creat Clearance w eGFR 47.18 Random Glucose 90 Calcium 7.4 L Phosphorus 3.7 Magnesium 1.2 L Total Bilirubin 5.0 H Direct Bilirubin 2.3 H AST 72 H ALT 19 Alkaline Phosphatase 88 Ammonia Troponin I B-Natriuretic Peptide Total Protein 6.2 L Albumin 2.6 L Lipase Urine Color Zully Urine Appearance Slcloudy Urine pH 5.0 Ur Specific [place] 1.028 Urine Protein 2+ H Urine Glucose (UA) Negative Urine Ketones Negative Urine Blood Negative Urine Nitrite Negative Urine Bilirubin 2.0 Urine Urobilinogen 4.0 e.u/dl H Ur Leukocyte Esterase Negative Urine WBC (Auto) <1 Urine RBC (Auto) <1 Ur Epithelial Cells Few Urine Bacteria Rare Hyaline Casts 132 Urine Mucus Many Opiates Screen Methadone Screen Barbiturate Screen Phencyclidine Screen Ur Amphetamines Screen MDMA (Ecstasy) Screen Benzodiazepines Screen Cocaine Screen U Marijuana (THC) Screen Alcohol, Quantitative Blood Type Antibody Screen 10/09/18 10/09/18 10/09/18 06:30 06:30 06:30 WBC 3.2 L RBC 2.71 L Hgb 9.5 L Hct 28.6 L MCV 105.8 H MCH 35.0 H MCHC 33.1 RDW 17.2 H Plt Count 53 L MPV 10.2 Absolute Neuts (auto) 1.7 Neutrophils % 51.4 D Lymphocytes % 32.0 D Monocytes % 13.0 H Eosinophils % 2.8 D Basophils % 0.8 Nucleated RBC % 0 PT with INR INR PTT (Actin FS) 30.4 Sodium Potassium Chloride Carbon Dioxide Anion Gap BUN Creatinine Creat Clearance w eGFR Random Glucose Calcium Phosphorus Magnesium Total Bilirubin Direct Bilirubin AST ALT Alkaline Phosphatase Ammonia Troponin I B-Natriuretic Peptide Total Protein Albumin Lipase Urine Color Urine Appearance Urine pH Ur Specific [place] Urine Protein Urine Glucose (UA) Urine Ketones Urine Blood Urine Nitrite Urine Bilirubin Urine Urobilinogen Ur Leukocyte Esterase Urine WBC (Auto) Urine RBC (Auto) Ur Epithelial Cells Urine Bacteria Hyaline Casts Urine Mucus Opiates Screen Methadone Screen Barbiturate Screen Phencyclidine Screen Ur Amphetamines Screen MDMA (Ecstasy) Screen Benzodiazepines Screen Cocaine Screen U Marijuana (THC) Screen Alcohol, Quantitative Blood Type O POSITIVE Antibody Screen Negative Active Medications Generic Name Dose Route Start Last Admin Trade Name Freq PRN Reason Stop Dose Admin Fluoxetine HCl 20 mg 10/09/18 10:00 Prozac - PO DAILY [facility] Folic Acid 1 mg 10/08/18 21:27 10/09/18 00:00 Folic Acid - PO Not Given DAILY [facility] Lactulose 30 gm 10/08/18 22:00 10/09/18 07:18 Cephulac (Oral Use) PO Not Given QID [facility] Levothyroxine Sodium 100 mcg 10/09/18 07:00 10/09/18 06:11 Synthroid - PO 100 mcg DAILY@0700 ANDREW Administration Magnesium Oxide 400 mg 10/08/18 22:00 10/09/18 07:18 Mag-Ox - PO Not Given BID [facility] Oxycodone HCl 15 mg 10/08/18 21:24 10/09/18 08:56 Roxicodone - PO 15 mg Q6H PRN Administration PAIN LEVEL 6-10 Rifaximin 550 mg 10/08/18 22:00 10/09/18 00:00 Xifaxan - PO Not Given BID [facility] Spironolactone 100 mg 10/09/18 10:00 Aldactone - PO DAILY [facility] Thiamine HCl 100 mg 10/08/18 21:30 10/09/18 00:00 Vitamin B1 - PO Not Given DAILY [facility] ASSESSMENT/PLAN: Patient is a 53 year old female with history of cirrhosis secondary to chronic, excessive alcohol use, pancreatitis, hypothyroidism, hypertension, hyperlipidemia, presenting with complaint of abdominal pain and distension worsening over the past two weeks. Alcoholic cirrhosis -Patient endorses drinking alcohol, and dietary non-compliance contributing to her repeated symptoms. -MELDna score 22 (Cr 1.3, Bilirbin 5.0, INR 1.77, Na 136) -Ammonia level elevated at 55.40. Patient currently does not show signs of encephalopathy. -Transaminitis noted as chronic elevation, likely secondary to cirrhosis. -GI recommendations (Dr. Diane) appreciated. -Ascites was drained (8100mL) with therapeutic paracentesis under ultrasound guidance. -Cell count and culture of ascitic fluid was not obtained. After discussion with Chief Load Dispatcher, if she continues to have abdominal pain, will plan for diagnostic paracentesis to obtain cell count and culture of ascitic fluid. -Albumin repleted: 12.5g X 5 units for total 62.5 grams Albumin -Spironolactone 100mg PO daily -Lactulose 30 grams PO daily -Strict intake and output, with daily weights -Patient will undergo EGD to evaluate for varices on Friday10/12/2017 Polysubstance abuse -History of documented alcohol abuse -Urine toxicology positive for cocaine -Patient is currently not in withdrawal. Monitor closely for signs of withdrawal -Thiamine 100mg PO daily -Folic acid 1mg PO daily. Thrombocytopenia -Likely secondary to her hepatic cirrhosis. -Patient received 1 unit of platelets prior to her paracentesis Hypothyroidism -Synthroid 100mcg daily Anxiety, depression -Prozac 20mg PO daily FEN -No IV fluids. -Hypomagnesemia, repleted. Follow CMP, Magnesium, Phosphate. -Sodium controlled diet Prophylaxis -SCDs B/L lower extremities Disposition -Continue care in medical-surgical floor. Visit type - Emergency Visit Emergency Visit: Yes ED Registration Date: 10/08/18 Care time: The patient presented to the Emergency Department on the above date and was hospitalized for further evaluation of their emergent condition. - New Patient This patient is new to me today: Yes Date on this admission: 10/09/18 - Critical Care Critical Care patient: No - Discharge Referral Referred to [facility] Med P.C.: No
[2018-10-09] MEDS: FOLIC ACID 1 MG TABLET (FP) PO SCH ×2 (11:34)
[2018-10-09] MEDS: SPIRONOLACTONE 25 MG TABLET (FP) PO SCH (11:34)
[2018-10-09] MEDS: RIFAXIMIN 550 MG TABLET (UD) PO SCH ×2 (11:35)
[2018-10-09] MEDS: FLUoxetine HCL 20 MG CAPSULE (FP) PO SCH (11:35)
[2018-10-09] MEDS: THIAMINE HCL 100 MG TABLET (FP) PO SCH ×2 (11:35)
[2018-10-09 12:23] LABS: ANISOCYTOSIS 1+; MACROCYTOSIS 0; PLATELET ESTIMATE DECREASED
[2018-10-09] MEDS ORDERED: MAGNESIUM SULFATE IN WATER 2 GM/50 ML IVPB IVPB ONE (13:01)
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
[2018-10-09] MEDS: FUROSEMIDE 40 MG TABLET (FP) PO SCH (15:50)
--- NOTE | 2018-10-09 17:55 | PN ---
Teaching Attending Note Name of Resident: Eliot Young ATTENDING PHYSICIAN STATEMENT I saw and evaluated the patient. I reviewed the resident's note and discussed the case with the resident. I agree with the resident's findings and plan as documented. SUBJECTIVE: Complains of abdominal distension, pain. No fever/chills. No nausea/ vomiting/diarrhea. No hematemesis/melena. OBJECTIVE: Afebrile/Hemodynamically Stable. Last Vital Signs Temp Pulse Resp BP Pulse Ox 98.4 F 93 H 20 132/71 100 10/09/18 15:42 10/09/18 15:42 10/09/18 15:42 10/09/18 15:42 10/09/18 14:35 HEENT - Atraumatic, Normocephalic. Jaundice++ Heart - S1, S2, RRR Lungs - decreased air entry at bases Abdomen - Distended +++, firm. Mild generalized tenderness. Extremities - Edema +++ Neuro - AAO x 3. No asterixis Laboratory Results - last 24 hr 10/09/18 10/09/18 10/09/18 06:30 06:30 06:30 WBC 3.2 L RBC 2.71 L Hgb 9.5 L Hct 28.6 L MCV 105.8 H MCH 35.0 H MCHC 33.1 RDW 17.2 H Plt Count 53 L MPV 10.2 Absolute Neuts (auto) 1.7 Neutrophils % 51.4 D Lymphocytes % 32.0 D Monocytes % 13.0 H Eosinophils % 2.8 D Basophils % 0.8 Nucleated RBC % 0 Hypochromia 0 Platelet Estimate Decreased Platelet Comment Present Polychromasia 0 Poikilocytosis 0 Anisocytosis 1+ Microcytosis 1+ Macrocytosis 0 PT with INR 21.00 H INR 1.77 H PTT (Actin FS) Sodium 136 Potassium 3.7 Chloride 102 Carbon Dioxide 24 Anion Gap 10 BUN 14 Creatinine 1.2 Creat Clearance w eGFR 47.18 Random Glucose 90 Calcium 7.4 L Phosphorus 3.7 Magnesium 1.2 L Total Bilirubin 5.0 H Direct Bilirubin 2.3 H AST 72 H ALT 19 Alkaline Phosphatase 88 Total Protein 6.2 L Albumin 2.6 L Blood Type Antibody Screen 10/09/18 10/09/18 06:30 06:30 WBC RBC Hgb Hct MCV MCH MCHC RDW Plt Count MPV Absolute Neuts (auto) Neutrophils % Lymphocytes % Monocytes % Eosinophils % Basophils % Nucleated RBC % Hypochromia Platelet Estimate Platelet Comment Polychromasia Poikilocytosis Anisocytosis Microcytosis Macrocytosis PT with INR INR PTT (Actin FS) 30.4 Sodium Potassium Chloride Carbon Dioxide Anion Gap BUN Creatinine Creat Clearance w eGFR Random Glucose Calcium Phosphorus Magnesium Total Bilirubin Direct Bilirubin AST ALT Alkaline Phosphatase Total Protein Albumin Blood Type O POSITIVE Antibody Screen Negative Current Medications Generic Name Dose Route Start Last Admin Trade Name Freq PRN Reason Stop Dose Admin Fluoxetine HCl 20 mg 10/09/18 10:00 10/09/18 11:35 Prozac - PO 20 mg DAILY ANDREW Administration Folic Acid 1 mg 10/08/18 21:27 10/09/18 11:34 Folic Acid - PO 1 mg DAILY ANDREW Administration Furosemide 40 mg 10/09/18 14:00 10/09/18 15:50 Lasix - PO 40 mg DAILY ANDREW Administration Lactulose 30 gm 10/09/18 14:00 10/09/18 15:50 Cephulac (Oral Use) PO 30 gm DAILY ANDREW Administration Levothyroxine Sodium 100 mcg 10/09/18 07:00 10/09/18 06:11 Synthroid - PO 100 mcg DAILY@0700 ANDREW Administration Magnesium Oxide 400 mg 10/08/18 22:00 10/09/18 11:34 Mag-Ox - PO 400 mg BID ANDREW Administration Oxycodone HCl 15 mg 10/08/18 21:24 10/09/18 15:56 Roxicodone - PO 15 mg Q6H PRN Administration PAIN LEVEL 6-10 Spironolactone 100 mg 10/09/18 10:00 10/09/18 11:34 Aldactone - PO 100 mg DAILY ANDREW Administration Thiamine HCl 100 mg 10/08/18 21:30 10/09/18 11:35 Vitamin B1 - PO 100 mg DAILY ANDREW Administration ASSESSMENT AND PLAN: 53 year old female with history of Liver Cirrhosis sec to Alcohol abuse with recurrent ascites (last drained 5L 09/22), Hypothyroidism, chronic LBP, Hx of Pancreatitis, HTN, HLD, GERD, Anxiety/Depression admitted with fluid overload/ anasarca/ascites requiring intervention and diuresis. 1. Fluid Overload/Ascites sec to Portal HTN sec to Liver Cirrhosis requiring recurrent Paracentesis. s/p IR guided paracentesis. 8L drained. Now receiving replacement Albumin. Lasix stopped on last admission due to concerns about developing hepatorenal syndrome. Patient non-compliant with sodium restriction and alcohol abstinence. GI consulted and resumed Lasix in addition to Aldactone. No evidence of SBP at this time GI recommends screening EGD for varices and banding if necessary. Should be on Lactulose and Rifaximin but patient denies taking this at home. Elevated transaminases and hyperbilirubinemia sec to Cirrhosis. Hypoalbuminemia and auto-anticoagulation with INR 1.77 sec to poor synthetic function of cirrhotic liver - will monitor for bleeding. Nutrition consult. Ammonia level 55 but no signs of encephalopathy. 2. Pancytopenia sec to Liver Disease Required 1 unit of platelets today prior/during paracentesis procedure for Thrombocytopenia. 3. Polysubstance Abuse Utox pos for cocaine. Last Alcoholic drinl 10/06/18 No evidence of withdrawal - will monitor. MVI, Thiamine and Folate supplementation. Addiction Medicine consult 4. HTN - Continue Aldactone. 5. Chronic lower back neck pain due to herniated disks - continue Oxycodone 6. Hypothyroidism - Continue Levothyroxine. 7. Anxiety/depression - Continue Fluoxetine 8. Hypomagnesemia - will replete. DVT Px - SCDs.
--- NOTE | 2018-10-09 18:16 | PN ---
Progress Note (short form) - Note Progress Note: Discussed plan for EGD with Ms. Gonzalez to screen for varices. Discussed my concern for cocaine in her urine. She is uncertain how there was cocaine in her system, possibly from "a constitution party she was at". explained concern for beta tolu therapy and that she may need serial banding sessions as primary bleeding prophylaxis of varices. We discussed potential risks of the procedure like but not limited to bleeding, perforation requiring surgery to repair, infection, sedation medication effects, all of which could be potentially life threatening. She has agreed to the procedure. Problem List - Problems (1) Ascites Code(s): R18.8 - OTHER ASCITES
[2018-10-09] MEDS: ALBUMIN HUMAN 25% 12.5 GM/50 ML VIAL IVPB SCH ×5 (18:18→19:47)
[2018-10-09] MEDS ORDERED: MAG HYDROX/AL HYDROX/SIMETH 30 ML UNIT-DOSE CUP PO ONE (21:29)
[2018-10-10] MEDS: LEVOTHYROXINE NA 100 MCG TABLET (FP) PO SCH (06:33)
[2018-10-10] MEDS: oxyCODONE HCL 5 MG TABLET PO PRN ×2 (06:36→22:12)
--- NOTE | 2018-10-10 07:56 | PN ---
Physical Exam: SUBJECTIVE: Patient seen and examined at bedside this morning. She admits significant improvement of abdominal pain. Currently pain is dull, pressure- like, localized to the left and right upper abdominal quadrants. It is becoming intermittent, and palliated with passing flatus. Patient endorses six episodes of non bloody, non bilious vomiting overnight, in addition to three episodes of diarrhea that is liquid brown without kiran blood. She is refusing breakfast this morning due to her nausea. OBJECTIVE: Vital Signs Period Temp Pulse Resp BP Sys/Packer Pulse Ox Last 24 Hr 97.9 F-98.6 F 86-104 18-20 118-147/65-100 96-100 GENERAL: The patient is awake, alert, and fully oriented, in no mild distress. HEAD: Normocephalic, atraumatic. EYES: PERRL, extraocular movements intact. Faint scleral icterus improving B/L. ENT: Oropharynx clear without exudates, dry mucous membranes. NECK: Supple without lymphadenopathy. LUNGS: Good inspiratory effort, clear to auscultation bilaterally. No wheezes, no crackles. No accessory muscle use. HEART: Regular rate and rhythm, S1, S2 without murmur, rub or gallop. ABDOMEN: Tense, distension diminishing. Remains tender to deep palpation at left and right upper abdominal quadrants, without rebound tenderness. Tympanic to percussion at left and right upper abdominal quadrants. Normoactive bowel sounds X4 quadrants. EXTREMITIES: 2+ radial and dorsalis pedis pulses B/L. 1+ left and right lower extremity edema most pronounced at ankles. NEUROLOGICAL: Cranial nerves II through XII grossly intact. Normal speech. Strength 5/5 b/l upper and lower extremities. No asterixix appreciated. PSYCH: Anxious appearing upon my encounter. SKIN: Jaundiced skin most pronounced at her face. Warm, Dry. No rashes, lesions. No caput medusae appreciated. Laboratory Results - last 24 hr 10/09/18 10/09/18 10/09/18 06:30 06:30 06:30 WBC 3.2 L RBC 2.71 L Hgb 9.5 L Hct 28.6 L MCV 105.8 H MCH 35.0 H MCHC 33.1 RDW 17.2 H Plt Count 53 L MPV 10.2 Absolute Neuts (auto) 1.7 Neutrophils % 51.4 D Lymphocytes % 32.0 D Monocytes % 13.0 H Eosinophils % 2.8 D Basophils % 0.8 Nucleated RBC % 0 Hypochromia 0 Platelet Estimate Decreased Platelet Comment Present Polychromasia 0 Poikilocytosis 0 Anisocytosis 1+ Microcytosis 1+ Macrocytosis 0 Sodium 136 Potassium 3.7 Chloride 102 Carbon Dioxide 24 Anion Gap 10 BUN 14 Creatinine 1.2 Creat Clearance w eGFR 47.18 Random Glucose 90 Calcium 7.4 L Phosphorus 3.7 Magnesium 1.2 L Total Bilirubin 5.0 H Direct Bilirubin 2.3 H AST 72 H ALT 19 Alkaline Phosphatase 88 Total Protein 6.2 L Albumin 2.6 L Blood Type O POSITIVE Antibody Screen Negative Active Medications Generic Name Dose Route Start Last Admin Trade Name Freq PRN Reason Stop Dose Admin Fluoxetine HCl 20 mg 10/09/18 10:00 10/09/18 11:35 Prozac - PO 20 mg DAILY ANDREW Administration Folic Acid 1 mg 10/08/18 21:27 10/09/18 11:34 Folic Acid - PO 1 mg DAILY ANDREW Administration Furosemide 40 mg 10/09/18 14:00 10/09/18 15:50 Lasix - PO 40 mg DAILY ANDREW Administration Lactulose 30 gm 10/09/18 14:00 10/09/18 15:50 Cephulac (Oral Use) PO 30 gm DAILY ANDREW Administration Levothyroxine Sodium 100 mcg 10/09/18 07:00 10/10/18 06:33 Synthroid - PO 100 mcg DAILY@0700 ANDREW Administration Magnesium Oxide 400 mg 10/08/18 22:00 10/09/18 21:38 Mag-Ox - PO 400 mg BID ANDREW Administration Oxycodone HCl 15 mg 10/08/18 21:24 10/10/18 06:36 Roxicodone - PO 15 mg Q6H PRN Administration PAIN LEVEL 6-10 Spironolactone 100 mg 10/09/18 10:00 10/09/18 11:34 Aldactone - PO 100 mg DAILY ANDREW Administration Thiamine HCl 100 mg 10/08/18 21:30 10/09/18 11:35 Vitamin B1 - PO 100 mg DAILY ANDREW Administration ASSESSMENT/PLAN: Patient is a 53 year old female with history of cirrhosis secondary to chronic, excessive alcohol use, pancreatitis, hypothyroidism, hypertension, hyperlipidemia, presenting with complaint of abdominal pain and distension worsening over the past two weeks. Alcoholic cirrhosis -Patient endorses drinking alcohol, and dietary non-compliance contributing to her repeated symptoms. Discussed today regarding the importance of alcohol abstinence, medication and diet compliance. -Transaminitis improving. Noted as chronic elevation from prior hospitalizations, likely secondary to cirrhosis. -GI recommendations (Dr. Diane) appreciated. -Ascites was drained (8100mL) with therapeutic paracentesis under ultrasound guidance (10/09/2018) -Cell count and culture of ascitic fluid was not obtained. Abdominal pain improving, however if she continues to have abdominal pain, will plan for diagnostic paracentesis to obtain cell count and culture of ascitic fluid. -Spironolactone 100mg PO daily -Lactulose held today, due to patient diarrhea. Discussed with nursing staff to closely monitor bowel movements. -Strict intake and output, with daily weights -Patient will undergo EGD to evaluate for varices on Friday10/12/2017 Polysubstance abuse -History of documented alcohol abuse -Urine toxicology positive for cocaine -Patient is currently not in withdrawal. Monitor closely for signs of withdrawal -Thiamine 100mg PO daily -Folic acid 1mg PO daily -Addiction medicine consult (Dr. Chávez) Leukocytosis, thrombocytopenia -Likely secondary to her hepatic cirrhosis. -Patient received 1 unit of platelets prior to her paracentesis (10/09/2018) Hypothyroidism -Synthroid 100mcg daily Anxiety, depression -Prozac 20mg PO daily FEN -No IV fluids. -Hypomagnesemia, repleted. Follow CMP, Magnesium, Phosphate. -Sodium controlled diet Prophylaxis -SCDs B/L lower extremities -Protonix 40mg PO daily Disposition -Continue care in medical-surgical floor. Visit type - Emergency Visit Emergency Visit: Yes ED Registration Date: 10/08/18 Care time: The patient presented to the Emergency Department on the above date and was hospitalized for further evaluation of their emergent condition. - New Patient This patient is new to me today: No - Critical Care Critical Care patient: No - Discharge Referral Referred to [facility] No
[2018-10-10 08:31] LABS: HEMATOCRIT 33.9 % (32.4-45.2); MCH 34.7 pg (25.7-33.7); MCHC 32.4 g/dl (32.0-36.0); MEAN CELL VOLUME 107.2 fl (80-96); MEAN PLT VOLUME 9.9 fl (7.5-11.1); PLATELET COUNT 81 K/MM3 (134-434); RBC 3.17 M/mm3 (3.60-5.2); RDW 17.3 % (11.6-15.6)
[2018-10-10 08:37] LABS: WHITE BLOOD COUNT 1.7 K/mm3 (4.0-10.0)
[2018-10-10] MEDS ORDERED: PT OWN MED DRAWER 7, Y5N ONE (09:02)
[2018-10-10 09:06] LABS: ALBUMIN 2.8 g/dl (3.4-5.0); ALK PHOS 87 U/L (45-117); ANION GAP 11 MMOL/L (8-16); BILIRUBIN,TOTAL 5.2 mg/dL (0.2-1); BLOOD UREA NITROGEN 13 mg/dL (7-18); CALCIUM 8.2 mg/dL (8.5-10.1); CHLORIDE 96 mmol/L (98-107); CO2 26 mmol/L (21-32); CREATININE 1.1 mg/dL (0.55-1.3); GLUCOSE,RANDOM 127 mg/dL (74-106); POTASSIUM 4.2 mmol/L (3.5-5.1); SGOT/AST 70 U/L (15-37); SGPT/ALT 22 U/L (13-61); SODIUM 134 mmol/L (136-145); TOT PROT 6.4 g/dl (6.4-8.2)
[2018-10-10] MEDS: FUROSEMIDE 40 MG TABLET (FP) PO SCH (09:23)
[2018-10-10] MEDS: THIAMINE HCL 100 MG TABLET (FP) PO SCH (09:24)
[2018-10-10] MEDS: SPIRONOLACTONE 25 MG TABLET (FP) PO SCH (09:24)
[2018-10-10] MEDS: FOLIC ACID 1 MG TABLET (FP) PO SCH (09:24)
[2018-10-10] MEDS: FLUoxetine HCL 20 MG CAPSULE (FP) PO SCH (09:24)
[2018-10-10] MEDS: MAGNESIUM OXIDE 400 MG TABLET (FP) PO SCH ×2 (09:24→21:36)
[2018-10-10] MEDS: LACTULOSE 20 GM/30 ML UDC (FOR ORAL USE ONLY) PO SCH (09:32)
[2018-10-10 11:00] LABS: MAGNESIUM 1.5 mg/dL (1.8-2.4); PHOSPHOROUS 4.3 mg/dL (2.5-4.9)
[2018-10-10] MEDS: PANTOPRAZOLE 40 MG TABLET (FP) PO SCH (14:53)
--- NOTE | 2018-10-10 15:26 | PN ---
Teaching Attending Note Name of Resident: Eliot Young ATTENDING PHYSICIAN STATEMENT I saw and evaluated the patient. I reviewed the resident's note and discussed the case with the resident. I agree with the resident's findings and plan as documented. SUBJECTIVE: Complains of abdominal pain, nausea, vomiting, diarrhea - no hematemesis, melena, hematochezia. No fever/chills. OBJECTIVE: T 99.1, Hemodynamically Stable. Last Vital Signs Temp Pulse Resp BP Pulse Ox 99.1 F 108 H 20 107/67 100 10/10/18 09:33 10/10/18 09:33 10/10/18 09:33 10/10/18 09:33 10/09/18 21:00 HEENT - Atraumatic, Normocephalic. Jaundice++ Heart - S1, S2, RRR Lungs - decreased air entry at bases Abdomen - Distension improved. Soft, mild generalized tenderness. Extremities - Edema LE improving 1+ Neuro - AAO x 3. No asterixis Laboratory Results - last 24 hr 10/10/18 10/10/18 07:30 07:30 WBC 1.7 L* RBC 3.17 L Hgb 11.0 Hct 33.9 D MCV 107.2 H MCH 34.7 H MCHC 32.4 RDW 17.3 H Plt Count 81 L D MPV 9.9 Sodium 134 L Potassium 4.2 Chloride 96 L Carbon Dioxide 26 Anion Gap 11 BUN 13 Creatinine 1.1 Creat Clearance w eGFR 52.16 Random Glucose 127 H Calcium 8.2 L Phosphorus 4.3 Magnesium 1.5 L Total Bilirubin 5.2 H AST 70 H ALT 22 Alkaline Phosphatase 87 Total Protein 6.4 Albumin 2.8 L Current Medications Generic Name Dose Route Start Last Admin Trade Name Freq PRN Reason Stop Dose Admin Fluoxetine HCl 20 mg 10/09/18 10:00 10/10/18 09:24 Prozac - PO 20 mg DAILY ANDREW Administration Folic Acid 1 mg 10/08/18 21:27 10/10/18 09:24 Folic Acid - PO 1 mg DAILY ANDREW Administration Furosemide 40 mg 10/09/18 14:00 10/10/18 09:23 Lasix - PO 40 mg DAILY ANDREW Administration Lactulose 30 gm 10/09/18 14:00 10/10/18 09:32 Cephulac (Oral Use) PO Not Given DAILY ANDREW Levothyroxine Sodium 100 mcg 10/09/18 07:00 10/10/18 06:33 Synthroid - PO 100 mcg DAILY@0700 ANDREW Administration Magnesium Oxide 400 mg 10/08/18 22:00 10/10/18 09:24 Mag-Ox - PO 400 mg BID ANDREW Administration Pantoprazole Sodium 40 mg 10/10/18 13:45 10/10/18 14:53 Protonix - PO 40 mg DAILY ANDREW Administration Spironolactone 100 mg 10/09/18 10:00 10/10/18 09:24 Aldactone - PO 100 mg DAILY ANDREW Administration Thiamine HCl 100 mg 10/08/18 21:30 10/10/18 09:24 Vitamin B1 - PO 100 mg DAILY ANDREW Administration ASSESSMENT AND PLAN: 53 year old female with history of Liver Cirrhosis sec to Alcohol abuse with recurrent ascites (last drained 5L 09/22), Hypothyroidism, chronic LBP, Hx of Pancreatitis, HTN, HLD, GERD, Anxiety/Depression admitted with fluid overload/ anasarca/ascites requiring intervention and diuresis. 1. Fluid Overload/Ascites sec to Portal HTN sec to Liver Cirrhosis requiring recurrent Paracentesis. Complains of abdominal discomfort, vomiting, diarrhea s/p IR guided paracentesis with 8L drained. No evidence of SBP at this time - but given abdo discomfort, low threshold to start IV Ceftriaxone if pain worsens or if fever develops. Paracentesis fluid unfortunately not sent for cell count or Cx. Stool for Cdiff and culture. Lasix stopped on last admission due to concerns about developing hepatorenal syndrome. Patient non-compliant with sodium restriction and alcohol abstinence. GI consulted and resumed Lasix in addition to Aldactone. Awaiting GI eval today re: abdo discomfort, vomiting, diarrhea. GI recommends screening EGD for varices and banding if necessary. Should be on Lactulose and Rifaximin but patient denies taking this at home - held today due to reported diarrhea. Elevated transaminases and hyperbilirubinemia sec to Cirrhosis. Hypoalbuminemia and auto-anticoagulation with INR 1.77 sec to poor synthetic function of cirrhotic liver - will monitor for bleeding. Nutrition consult. Ammonia level 55 but no signs of encephalopathy. 2. Pancytopenia sec to Liver Disease Required 1 unit of platelets prior/during paracentesis procedure for Thrombocytopenia. Anemic and Leukopenic - will monitor. 3. Polysubstance Abuse Utox pos for cocaine. Last Alcoholic drinl 10/06/18 No evidence of withdrawal - will monitor. MVI, Thiamine and Folate supplementation. Addiction Medicine consulted. 4. HTN - Continue Aldactone. 5. Chronic lower back neck pain due to herniated disks - continue Oxycodone 6. Hypothyroidism - Continue Levothyroxine. 7. Anxiety/depression - Continue Fluoxetine 8. Hypomagnesemia - recurrent. Will replete. DVT Px - SCDs.
[2018-10-10] MEDS ORDERED: MAGNESIUM SULF 50% (8.12 MEQ/2 ML-1 GM VIAL) IVPB ONE ×2 (15:45→16:00)
[2018-10-10] MEDS ORDERED: MAGNESIUM SULF 50% (8.12 MEQ/2 ML-1 GM VIAL) ONE (16:48)
[2018-10-10] MEDS ORDERED: diphenhydrAMINE HCL 25 MG CAPSULE (FP) PO ONE (22:53)
[2018-10-11] MEDS: oxyCODONE HCL 5 MG TABLET PO PRN (06:30)
[2018-10-11] MEDS: LEVOTHYROXINE NA 100 MCG TABLET (FP) PO SCH (06:30)
[2018-10-11] MEDS ORDERED: PT OWN MED DRAWER 7, Y5N ONE (09:53)
[2018-10-11] MEDS: FOLIC ACID 1 MG TABLET (FP) PO SCH (09:55)
[2018-10-11] MEDS: FLUoxetine HCL 20 MG CAPSULE (FP) PO SCH (09:56)
[2018-10-11] MEDS: THIAMINE HCL 100 MG TABLET (FP) PO SCH (09:56)
[2018-10-11] MEDS: MAGNESIUM OXIDE 400 MG TABLET (FP) PO SCH (09:56)
[2018-10-11] MEDS: FUROSEMIDE 40 MG TABLET (FP) PO SCH (09:56)
[2018-10-11] MEDS: SPIRONOLACTONE 25 MG TABLET (FP) PO SCH (09:56)
[2018-10-11] MEDS: PANTOPRAZOLE 40 MG TABLET (FP) PO SCH (09:56)
[2018-10-11] MEDS: LACTULOSE 20 GM/30 ML UDC (FOR ORAL USE ONLY) PO SCH (09:59)
[2018-10-11 11:17] LABS: CO2 26 mmol/L (21-32); CREATININE 1.4 mg/dL (0.55-1.3)
[2018-10-11 11:46] VITALS: BP 112/61; PULSE 84; TEMP 97.5
[2018-10-11 12:33] LABS: ALK PHOS 85 U/L (45-117); ANION GAP 11 MMOL/L (8-16); BILIRUBIN,TOTAL 6.3 mg/dL (0.2-1); BLOOD UREA NITROGEN 17 mg/dL (7-18); CALCIUM 7.8 mg/dL (8.5-10.1); CHLORIDE 96 mmol/L (98-107); GLUCOSE,RANDOM 96 mg/dL (74-106); MAGNESIUM 1.6 mg/dL (1.8-2.4); PHOSPHOROUS 3.2 mg/dL (2.5-4.9); POTASSIUM 3.7 mmol/L (3.5-5.1); SGOT/AST 84 U/L (15-37); SGPT/ALT 28 U/L (13-61); SODIUM 132 mmol/L (136-145); TOT PROT 6.5 g/dl (6.4-8.2)
[2018-10-11 12:43] VITALS: BMI 22.2
--- NOTE | 2018-10-11 13:27 | DS ---
Physical Exam: SUBJECTIVE: Patient seen and examined. Feels much better. Abdominal pain reslolved. Diarrhea improved. No nausea/vomiting. No hematemesis/melena/ hematochezia. No fever/chills. Feels much improved. OBJECTIVE Afebrile, Hemodynamically stable. Last Vital Signs Temp Pulse Resp BP Pulse Ox 97.5 F L 84 20 112/61 100 10/11/18 09:00 10/11/18 09:00 10/11/18 09:00 10/11/18 09:00 10/09/18 21:00 HEENT - Atraumatic, Normocephalic. Jaundice++ Heart - S1, S2, RRR Lungs - decreased air entry at bases Abdomen - Soft, non-tender. Bowel Sounds normal. Extremities - Edema LE improving 1+ Neuro - AAO x 3. No asterixis LABS Laboratory Results - last 24 hr 10/11/18 07:00 Sodium 132 L Potassium 3.7 Chloride 96 L Carbon Dioxide 26 Anion Gap 11 BUN 17 Creatinine 1.4 H Creat Clearance w eGFR 39.49 Random Glucose 96 Calcium 7.8 L Phosphorus 3.2 Magnesium 1.6 L Total Bilirubin 6.3 H AST 84 H ALT 28 Alkaline Phosphatase 85 Total Protein 6.5 Albumin 3.0 L Date of Admission:10/08/18 Date of Discharge: 10/11/18 Minutes to complete discharge: 45 Discharge Summary Reason For Visit: ASCITES,ALCOHOLIC CIRRHOSIS Current Active Problems Ascites (Acute) Cirrhosis (Acute) Hospital Course: 53 year old female with history of Liver Cirrhosis sec to Alcohol abuse with recurrent ascites (last drained 5L 09/22), Hypothyroidism, chronic LBP, Hx of Pancreatitis, HTN, HLD, GERD, Anxiety/Depression admitted with fluid overload/ anasarca/ascites requiring intervention and diuresis. 1. Fluid Overload/Ascites sec to Portal HTN sec to Liver Cirrhosis requiring recurrent Paracentesis. Complained of abdominal discomfort, vomiting, diarrhea s/p IR guided paracentesis with 8L drained - now resolved Cdiff Ag positive No evidence of SBP at this time. Will treat with 10 days of Flagyl. Seen by GI - resumed on Lasix in addition to Aldactone and recommended for EGD. Patient now prefers to have EGD done as an out-patient. She follows with Dr. Crocker. Afebrile, Hemodynamically Stable, improving diarrhea, adequate diuresis - medically stable for discharge with out-patient GI follow up for fluid balance, regular paracentesis and EGD for varices screening. Counselled extensively regarding importance of alcohol cessation. 2. Pancytopenia sec to Liver Disease Required 1 unit of platelets prior/during paracentesis procedure for Thrombocytopenia. Anemic and Leukopenic - will be monitored as oout-patient. 3. Polysubstance Abuse Utox pos for cocaine. Last Alcoholic drink 10/06/18 No evidence of withdrawal MVI, Thiamine and Folate supplementation. Addiction Medicine consulted. 4. HTN - Continue Aldactone. 5. Chronic lower back neck pain due to herniated disks - continue Oxycodone 6. Hypothyroidism - Continue Levothyroxine. 7. Anxiety/depression - Continue Fluoxetine 8. Hypomagnesemia - repleted Medically and Hemodynamically Stable for discharge. Condition: Good - Instructions Diet, Activity, Other Instructions: Alcohol cessation strongly advised. Please complete 10 days of Flagyl with Gastroenterology out-patient follow-up Referrals: Lois Crocker MD [Staff Physician] - 1 Week Disposition: HOME - Home Medications Comprehensive Discharge Medication List: Ambulatory Orders Fluoxetine HCl 10 mg PO DAILY capsule 04/03/17 Levothyroxine [Synthroid -] 100 mcg PO DAILY 01/08/18 Magnesium Oxide [Mag-Ox -] 400 mg PO BID #60 tablet 09/20/18 Spironolactone [Aldactone -] 100 mg PO DAILY #120 tablet 09/20/18 Calcium Carbonate/Vitamin D3 [Calcium 600-Vit D3 400 Tablet] 1 each PO DAILY 01/22 Folic Acid - 1 mg PO DAILY #30 tablet 10/11/18 Furosemide [Lasix -] 40 mg PO DAILY 30 Days #30 tablet 10/11/18 Lactulose (Oral Use) [Cephulac -] 30 gm PO DAILY #0 udc 10/11/18 Thiamine HCl [Vitamin B1 -] 100 mg PO DAILY #30 tablet 10/11/18 metroNIDAZOLE [Flagyl -] 500 mg PO TID 10 Days #60 tablet 10/11/18 This patient is new to me today: No Emergency Visit: Yes ED Registration Date: 10/08/18 Care time: The patient presented to the Emergency Department on the above date and was hospitalized for further evaluation of their emergent condition. Critical Care patient: No - Discharge Referral Referred to [facility] No
[2018-10-11] MEDS ORDERED: MAGNESIUM SULF 50% (8.12 MEQ/2 ML-1 GM VIAL) IVPB ONE (13:40)
[2018-10-11] MEDS ORDERED: metroNIDAZOLE 250 MG TABLET PO SCH (14:00)
[2018-10-11 14:07] LABS: HEMOGLOBIN 10.9 GM/dL (10.7-15.3); MCH 35.1 pg (25.7-33.7); MEAN CELL VOLUME 106.2 fl (80-96); MEAN PLT VOLUME 9.5 fl (7.5-11.1); PLATELET COUNT 125 K/MM3 (134-434); RBC 3.11 M/mm3 (3.60-5.2); RDW 17.3 % (11.6-15.6); WHITE BLOOD COUNT 5.8 K/mm3 (4.0-10.0)
== END 2018-10-11 14:08 | disposition left against medical advice (07) | DRG 264 ==
LOC: SUATTDRO 13:13 → JER 13:13 → JERBED 17:00 → J6S 23:19
PROVIDERS: ADMIT Internal Medicine
PROC: 0W9G3ZX Drainage of Peritoneal Cavity, Percutaneous Approach, Diagnostic (ICD-10-PCS; principal; 2018-10-09)
DX: K70.31 Alcoholic cirrhosis of liver with ascites (principal); F14.10 Cocaine abuse, uncomplicated; K72.90 Hepatic failure, unspecified without coma; E03.9 Hypothyroidism, unspecified; F10.20 Alcohol dependence, uncomplicated; K21.9 Gastro-esophageal reflux disease without esophagitis; E88.09 Other disorders of plasma-protein metabolism, not elsewhere classified; K76.6 Portal hypertension; D61.818 Other pancytopenia; I10 Essential (primary) hypertension; E78.5 Hyperlipidemia, unspecified; E87.70 Fluid overload, unspecified; F41.8 Other specified anxiety disorders; E83.42 Hypomagnesemia; D72.829 Elevated white blood cell count, unspecified; D69.6 Thrombocytopenia, unspecified
CPT/HCPCS: 36415; 36430; 36511; 49083; 71046-TC-FY; 76998-TC; 80053; 80307; 81003; 81015; 82140; 82248; 83690; 83735; 83880; 84100; 84484; 85025; 85027; 85610; 85730; 86850; 86900; 86901; 87086; 87324; 87449; 93005; 93010; 99283-25; P9034; P9038; P9047